=== PATIENT | female | born 1970 | race Caucasian/White ===

== ENCOUNTER 2017-11-25 18:53 | Emergency (ER) | payer BC ==
[2017-11-25 19:06] VITALS: BP 129/90
--- NOTE | 2017-11-25 19:33 | UC ---
Skin Complaint HPI - HPI Summary HPI Summary: 47 year old female with history of type 2 diabetes, COPD, CAD, HTN, and stage 3 CKD presents for painful "lump" to her right labia. States it may have been present for up to a month but over past 3-4 days has become extremely swollen and painful. States her blood glucose readings have been running from 250 to HIGH. Denies fever or chills. - History of Current Complaint Chief Complaint: UCSkin Time Seen by Provider: 11/25/17 19:14 Stated Complaint: WOUND CHECK Hx Obtained From: Patient Onset/Duration: Gradual Onset Timing: Constant Onset Severity: Mild Current Severity: Moderate Pain Intensity: 6 Location: Other - right labia Character: Swelling, Pain, Redness Aggravating Factor(s): Touch Alleviating Factor(s): Nothing Associated Signs & Symptoms: Positive: Tenderness. Negative: Nausea, Vomiting, Shivering, Fever, Chills, Drainage - Allergy/Home Medications Allergies/Adverse Reactions: Allergies Allergy/AdvReac Type Severity Reaction Status Date / Time morphine Allergy Itching Verified 11/25/17 19:08 Home Medications: Home Medications Albuterol HFA INHALER* [Ventolin HFA Inhaler*] 1 puff INH Q4H PRN 11/25/17 [ History Confirmed 11/25/17] Aspirin 81 mg CHEW TAB* [Aspirin Low Dose TAB*] 81 mg PO DAILY 11/25/17 [ History Confirmed 11/25/17] Atorvastatin* [Lipitor*] 80 mg PO DAILY 11/25/17 [History Confirmed 11/25/17] Cholecalciferol (Vitamin D3) [Vitamin D3] 2,000 unit PO DAILY 11/25/17 [History Confirmed 11/25/17] Cyclobenzaprine TAB* [Flexeril 10 MG TAB*] 10 mg PO TID PRN 11/25/17 [History Confirmed 11/25/17] Dulaglutide (NF) [Trulicity (NF)] 1.5 mg SUBCUT DAILY 11/25/17 [History Confirmed 11/25/17] Fluticasone Propionate [Flovent Diskus] 50 mcg IH DAILY 11/25/17 [History Confirmed 11/25/17] Gabapentin CAP(*) [Neurontin 300 CAP(*)] 300 mg PO TID 11/25/17 [History Confirmed 11/25/17] Insulin Glargine (Nf) [Toujeo Solostar Pen (NF)] 300 unit SUBCUT DAILY 11/25/17 [History Confirmed 11/25/17] Levothyroxine TAB* [Synthroid TAB*] 150 mcg PO DAILY 11/25/17 [History Confirmed 11/25/17] Lisinopril [Lisinopril 2.5 MG-] 7.5 mg PO DAILY 11/25/17 [History Confirmed ] Pantoprazole TAB (NF) [Protonix TAB (NF)] 40 mg PO DAILY 11/25/17 [History Confirmed 11/25/17] Polyvinyl Alcohol/Povidone/Pf [Refresh Classic Eye Drops] 1 each OP DAILY [History Confirmed 11/25/17] Sertraline HCl [Zoloft] 50 mg PO BID 11/25/17 [History Confirmed 11/25/17] Review of Systems Constitutional: Negative Skin: Other - See HPI Respiratory: Negative Cardiovascular: Negative Gastrointestinal: Negative Genitourinary: Ulceration/Lesion - right labial abscess Is Patient Immunocompromised?: No All Other Systems Reviewed And Are Negative: Yes PMH/Surg Hx/FS Hx/Imm Hx Endocrine History: Diabetes, Thyroid Disease, Dyslipidemia Cardiovascular History: Cardiac Disease, Hypertension Respiratory History: COPD GI/ History: Gastroesophageal Reflux, Renal Disease - Surgical History Surgical History: Yes Surgery Procedure, Year, and Place: skin graft, c-sec - Family History Known Family History: Positive: Other Family History: Mother - [place]. - Social History Occupation: Unemployed Lives: With Family Alcohol Use: None Substance Use Type: None Smoking Status (MU): Heavy Every Day Tobacco Smoker Physical Exam Triage Information Reviewed: Yes Appearance: Ill-Appearing - Chronically ill-appearing, older than stated age, Pain Distress - Moderately uncomfortable, Obese Vital Signs: Initial Vital Signs Temp 97.4 F 11/25/17 18:58 Pulse 115 11/25/17 18:58 Resp 24 11/25/17 18:58 BP 129/90 11/25/17 18:58 Pulse Ox 94 11/25/17 18:58 Vital Signs Reviewed: Yes Respiratory: Positive: No respiratory distress - but mildly tachypnic, Decreased breath sounds, Wheezing - Diffuse bilateral wheezing Cardiovascular: Positive: RRR, No Murmur, Tachycardia Abdomen Description: Positive: Nontender, Soft Pelvic Exam: Positive: Lesions - See below Neurological: Positive: Alert Skin: Positive: significant lesion(s) - Approximately 2-3 cm area of induration to right labia. Appears to have some central fluctuance but difficult to determine d/t body habitus. There is cellulitis present that involves the genitalia, lower abdomen, and upper right leg. Course/Dx - Course Course Of Treatment: 47-year-old female with type II diabetes, CAD, HTN, stage 3 CRF, and COPD presents with a right labial abscess and significant cellulitis involving lower abdomen, genitalia, and right upper leg. She is scoring a 5 on the MEWS scale and reports that her FSBG at home has been reading HIGH. Recommend further evaluation in the ED as she will likely need IV antibiotics. Patient agrees to ED evaluation. Will transport via private vehicle. - Diagnoses Provider Diagnoses: labial abcess with cellulitis Discharge - Sign-Out/Discharge Documenting (check all that apply): Patient Departure All imaging exams completed and their final reports reviewed: No Studies - Discharge Plan Condition: Stable Disposition: HOME-RECOMMEND TO ED Patient Education Materials: Cellulitis (ED), Abscess (ED) Referrals: Tiffany Richards MD [Primary Care Provider] - Additional Instructions: Go directly to the emergency room for evaluation. - Billing Disposition and Condition Condition: STABLE Disposition: Home-Recommend to ED
== END 2017-11-25 19:40 | disposition home health service (06) ==
LOC: UCEAST 18:53
DX: N76.4 Abscess of vulva (principal); N76.2 Acute vulvitis; E11.9 Type 2 diabetes mellitus without complications; I12.9 Hypertensive chronic kidney disease with stage 1 through stage 4 chronic kidney disease, or unspecified chronic kidney disease; N18.3 Chronic kidney disease, stage 3 (moderate); Z88.5 Allergy status to narcotic agent; J44.9 Chronic obstructive pulmonary disease, unspecified; E07.9 Disorder of thyroid, unspecified; E78.5 Hyperlipidemia, unspecified; K21.9 Gastro-esophageal reflux disease without esophagitis; I25.10 Atherosclerotic heart disease of native coronary artery without angina pectoris; F17.210 Nicotine dependence, cigarettes, uncomplicated
CPT/HCPCS: 99212; G0463

== ENCOUNTER 2017-11-25 20:11 | Emergency (ER) | payer BC ==
[2017-11-25 21:35] LABS: ABS Basophils 0.1 10^3/ul (0-0.2); ABS Eosinophils 0.4 10^3/ul (0-0.6); ABS Lymphocytes 2.4 10^3/ul (1.0-4.8); ABS Monocytes 0.5 10^3/ul (0-0.8); ABS Neutrophils 5.9 10^3/ul (1.5-7.7); ABS Nucleated RBC 0.1 10^3/ul; Eosinophil % 3.9 % (0-6); Hematocrit 44 % (35-47); Hemoglobin 15.1 g/dl (12.0-16.0); Lymphocyte % 25.6 % (25-47); Mean Corpuscular HGB Conc 34 g/dl (31-36); Mean Corpuscular Hemoglobin 30 pg (27-31); Mean Corpuscular Volume 88 fL (80-97); Mean Platelet Volume 7.3 um3 (7.4-10.4); Nucleated Red Blood Cells % 0.6; Platelet Count 243 10^3/ul (150-450); Red Blood Count 5.01 10^6/ul (4.00-5.40); Red Cell Distribution Width 16 % (10.5-15); White Blood Count 9.3 10^3/ul (3.5-10.8)
[2017-11-25 21:51] LABS: EGFR Non-African American 35.1 (>60)
[2017-11-25] MEDS ORDERED: Clindamycin 600 MG IVPREMIX(* 600 MG/50 ML SDV IV ONE (22:37)
[2017-11-25] MEDS ORDERED: NS 0.9% 1000 ML* 1,000 ML IV ONE (22:38)
[2017-11-25] MEDS ORDERED: oxyCODONE TAB* 5 MG TAB PO ONE (23:10)
[2017-11-25] MEDS ORDERED: Insulin REGULAR(*) 1 UNITS UNIT SUBCUT ONE (23:10)
[2017-11-25] MEDS ORDERED: Lidocaine 2% W/EPI 1:100,000* 20 ML MDV INJ ONE (23:16)
[2017-11-25] MEDS ORDERED: Lidocaine 2% EPI 1:200000 MPF*10-20 ML VIAL ONE (23:30)
--- NOTE | 2017-11-25 23:32 | ED ---
Skin Complaint - HPI Summary HPI Summary: 47-year-old female presents with potential abscess to right perineum. States it started as a cyst for past month and then also became enlarged in the past week. She states that the area is more tender. She also notices spreading redness to her right groin for the past day. No fevers or chills. She states her sugars have been high between 300 and high on her meter. She uses insulin. She is diabetic. She is not on blood thinners. She denies any history of MRSA. - History of Current Complaint Chief Complaint: EDRashSkinAbscess Time Seen by Provider: 11/25/17 22:34 Stated Complaint: SORE/WOUND NEAR GROIN Pain Intensity: 4 - Allergy/Home Medications Allergies/Adverse Reactions: Allergies Allergy/AdvReac Type Severity Reaction Status Date / Time morphine Allergy Itching Verified 11/25/17 19:08 PMH/Surg Hx/FS Hx/Imm Hx Endocrine/Hematology History: Reports: Hx Diabetes - insulin Denies: Hx Anticoagulant Therapy Cardiovascular History: Reports: Hx Hypercholesterolemia, Hx Hypertension - Cancer History Cancer Type, Location and Year: breast - Surgical History Surgery Procedure, Year, and Place: skin graft, c-sec Infectious Disease History: No Infectious Disease History: Denies: Traveled Outside the [place] in Last 30 Days - Family History Known Family History: Positive: Other Family History: Mother - [place]. - Social History Alcohol Use: None Hx Substance Use: No Substance Use Type: Reports: None Hx Tobacco Use: Yes Smoking Status (MU): Heavy Every Day Tobacco Smoker Review of Systems Negative: Fever Negative: Chest Pain Negative: Shortness Of Breath Positive: Rash All Other Systems Reviewed And Are Negative: Yes Physical Exam Triage Information Reviewed: Yes Vital Signs On Initial Exam: Initial Vitals Temp Pulse Resp BP Pulse Ox 97.5 F 109 15 108/76 93 11/25/17 20:15 11/25/17 20:15 11/25/17 20:15 11/25/17 20:15 11/25/17 20:15 Vital Signs Reviewed: Yes Appearance: Positive: Well-Appearing Skin: Positive: Warm, Dry Head/Face: Positive: Normal Head/Face Inspection Eyes: Positive: Normal ENT: Positive: Normal ENT inspection, Pharynx normal Respiratory/Lung Sounds: Positive: Clear to Auscultation, Breath Sounds Present Cardiovascular: Positive: Normal, RRR Abdomen Description: Positive: Nontender, Soft Bowel Sounds: Positive: Present Pelvic Exam: Positive: Other - area of loculation to right labia with erythema Musculoskeletal: Positive: Normal Neurological: Positive: Normal Psychiatric: Positive: Normal Procedures - Incision and Drainage perineum Site: right perineum Anesthesia: Local Instrument(s): Scalpel Packing: Gauze Diagnostics - Vital Signs Vital Signs Temp Pulse Resp BP Pulse Ox 11/25/17 20:15 97.5 F 109 15 108/76 93 - Laboratory Lab Results: Lab Results 11/25/17 11/25/17 11/25/17 Range/Units 21:22 21:22 21:22 WBC 9.3 (3.5-10.8) 10^3/ul RBC 5.01 (4.00-5.40) 10^6/ul Hgb 15.1 (12.0-16.0) g/dl Hct 44 (35-47) % MCV 88 (80-97) fL MCH 30 (27-31) pg MCHC 34 (31-36) g/dl RDW 16 H (10.5-15) % Plt Count 243 (150-450) 10^3/ul MPV 7.3 L (7.4-10.4) um3 Neut % (Auto) 63.6 (38-83) % Lymph % (Auto) 25.6 (25-47) % [place] % (Auto) 5.6 (0-7) % Eos % (Auto) 3.9 (0-6) % Baso % (Auto) 1.3 (0-2) % Absolute Neuts (auto) 5.9 (1.5-7.7) 10^3/ul Absolute Lymphs (auto) 2.4 (1.0-4.8) 10^3/ul Absolute Monos (auto) 0.5 (0-0.8) 10^3/ul Absolute Eos (auto) 0.4 (0-0.6) 10^3/ul Absolute Basos (auto) 0.1 (0-0.2) 10^3/ul Absolute Nucleated RBC 0.1 10^3/ul Nucleated RBC % 0.6 Sodium 131 L (135-145) mmol/L Potassium 4.1 (3.5-5.0) mmol/L Chloride 101 (101-111) mmol/L Carbon Dioxide 21 L (22-32) mmol/L Anion Gap 9 (2-11) mmol/L BUN 29 H (6-24) mg/dL Creatinine 1.58 H (0.51-0.95) mg/dL Est GFR ( Amer) 42.4 (>60) Est GFR (Non-Af Amer) 35.1 (>60) BUN/Creatinine Ratio 18.4 (8-20) Glucose 367 H (70-100) mg/dL Lactic Acid 1.4 (0.5-2.0) mmol/L Calcium 9.1 (8.6-10.3) mg/dL Total Bilirubin 0.30 (0.2-1.0) mg/dL AST 30 (13-39) U/L ALT 33 (7-52) U/L Alkaline Phosphatase 109 H (34-104) U/L Total Protein 7.1 (6.4-8.9) g/dL Albumin 3.5 (3.2-5.2) g/dL Globulin 3.6 (2-4) g/dL Albumin/Globulin Ratio 1.0 (1-3) Lipase 38 (11.0-82.0) U/L Beta HCG, Quant 2.90 mIU/mL Result Diagrams: 11/25/17 21:22 11/25/17 21:22 Lab Statement: Any lab studies that have been ordered have been reviewed, and results considered in the medical decision making process. Course/Dx - Course Course Of Treatment: 47-year-old female presents with potential abscess to right perineum. States it started as a cyst for past month and then also became enlarged in the past week. She states that the area is more tender. She also notices spreading redness to her right groin for the past day. No fevers or chills. She states her sugars have been high between 300 and high on her meter. She uses insulin. She is diabetic. She is not on blood thinners. She denies any history of MRSA. on exam has 3cm by 4cm area of loculation on right perineum with surround erythema. labs wbc normal. lactic normal. i&D area and got copious amount of pus. placed some packing in wound. gave dose of clindamycin. will have continue clindamycin. warned of signs to return to ED. told to return in 2 days for wound check. patient understand and agrees with plan. - Differential Diagnoses - Skin Complaint Differential Diagnoses: Abscess, Cellulitis, Contact Dermatitis - Diagnoses Provider Diagnoses: Abscess of right groin, Cellulitis Discharge - Sign-Out/Discharge Documenting (check all that apply): Patient Departure - Discharge Plan Condition: Good Disposition: HOME Prescriptions: Clindamycin Cap(NF) [Clindamycin Cap 300 mg Cap(NF)] 300 mg PO TID #29 cap Patient Education Materials: Abscess (ED) Referrals: Tiffany Richards MD [Primary Care Provider] - Additional Instructions: Take antibiotic three a day for 10 days, first dose given in ED Apply warm compresses to area Take ibuprofen or Tylenol for pain every 6 hours Follow up with ED or urgent care in 2 days for a wound check Return to ED if develop fever, area of redness spreads, or any new or worsening symptoms - Billing Disposition and Condition Condition: GOOD Disposition: Home
[2017-11-26 00:09] VITALS: BP 114/86
== END 2017-11-26 00:14 | disposition home or self-care (01) ==
LOC: ED 20:11
DX: L02.214 Cutaneous abscess of groin (principal); L03.90 Cellulitis, unspecified; R21 Rash and other nonspecific skin eruption; F17.210 Nicotine dependence, cigarettes, uncomplicated
CPT/HCPCS: 36415; 80053; 83605; 83690; 84702; 85025; 87040; 87070; 87205; 87640; 87641; 96374; 99283; A9270-GY

== ENCOUNTER 2017-11-29 11:32 | Inpatient (IN) | payer BC ==
[2017-11-29] MEDS ORDERED: NS 0.9% 1000 ML* 1,000 ML IV ONE ×2 (14:02→14:44)
[2017-11-29 14:23] LABS: ABS Basophils 0.1 10^3/ul (0-0.2); ABS Eosinophils 0.3 10^3/ul (0-0.6); ABS Lymphocytes 1.7 10^3/ul (1.0-4.8); ABS Neutrophils 10.7 10^3/ul (1.5-7.7); ABS Nucleated RBC 0 10^3/ul; Eosinophil % 2.5 % (0-6); Hematocrit 41 % (35-47); Lymphocyte % 12.3 % (25-47); Mean Corpuscular HGB Conc 34 g/dl (31-36); Mean Corpuscular Hemoglobin 30 pg (27-31); Mean Corpuscular Volume 88 fL (80-97); Mean Platelet Volume 7.3 um3 (7.4-10.4); Nucleated Red Blood Cells % 0.1; Platelet Count 264 10^3/ul (150-450); Red Blood Count 4.68 10^6/ul (4.00-5.40); Red Cell Distribution Width 16 % (10.5-15); White Blood Count 13.9 10^3/ul (3.5-10.8)
[2017-11-29] MEDS ORDERED: Vancomycin(*) 1,250 MG in NS 0.9% 250 ML* 250 ML IVPB ONE (14:40)
[2017-11-29] MEDS ORDERED: Piperacillin/Tazobac ADVAN(*) 3.375 GM in NS 0.9% 100 ML* 100 ML IVPB ONE (14:40)
[2017-11-29] MEDS ORDERED: NS 0.9% 250 ML* 250 ML ONE (14:55)
[2017-11-29 14:58] LABS: EGFR Non-African American 37.5 (>60)
--- NOTE | 2017-11-29 15:06 | RAD ---
INDICATION: RIGHT side labial abscess/cellulitis. The patient reports that the region was previously incised and packed and the incision has healed over the packing. COMPARISON: No relevant prior exams available on the [facility] [place] PACS for comparison. TECHNIQUE: Multidetector CT images were obtained from the lung bases to the ischial tuberosities. No oral contrast administered. Assessment of the visceral limited without IV contrast. Multiplanar reformation. REPORT: VISUALIZED INFERIOR THORAX: Unremarkable. LIVER / GALLBLADDER / PANCREAS / SPLEEN: 25 cm cephalocaudal liver is similar in density to the spleen and without evidence for focal lesions within limits of noncontrast CT. No CT abnormality of the partially distended gallbladder. Moderate pancreatic atrophy. 15 cm cephalocaudal spleen. ALIMENTARY TRACT: No CT abnormality of the upper GI or small bowel evident. The appendix is not visualized. Redundant colon with moderately severe diverticulosis without findings of acute diverticulitis. The cecum extends to the midline anterior pelvis and is inseparable from the superior margin of the urinary bladder. MESENTERIC: Unremarkable. ADRENAL / GENITOURINARY: Normal adrenal glands. Markedly atrophic RIGHT kidney. Nonobstructing 2 mm stone at the upper pole of the LEFT kidney. Negative for LEFT hydronephrosis. Unremarkable LEFT ureter. Partially distended urinary bladder contains intraluminal gas. No gross evidence for mural thickening of the urinary bladder. Unremarkable anteverted uterus and adnexal regions. RETROPERITONEAL: Upper normal 1 cm short axis RIGHT external iliac lymph node. Additional smaller retroperitoneal lymph nodes. Normal size limits RIGHT inguinal lymph nodes are larger than the LEFT. VASCULAR: Negative for aortoiliac aneurysm. Physiologic partial distention of the IVC. BONES: Negative for suspicious osseous lesions. Advanced facet joint osteoarthritis at the lumbar sacral spine. SOFT TISSUE: There is inflammatory change at the RIGHT labia majora with associated mass effect. Irregularly poorly marginated gas and phlegmonous or fluid collection at the RIGHT labia majora without conspicuous incisional or fistulous tract to the skin or viscera measures up to 7.4 cm AP by 2.7 cm transverse by 4.2 cm cephalocaudal. IMPRESSION: #. Hepatosplenomegaly. #. Gas at the urinary bladder which may reflect recent instrumentation or potentially a colovesicular fistula close approximation of the cecum to the cephalad margin of the urinary bladder. Correlate for recent partial instrumentation to favor iatrogenic gas. #. There is inflammatory change at the RIGHT labia majora with associated mass effect. Irregularly poorly marginated gas and phlegmonous or fluid collection at the RIGHT labia majora without conspicuous incisional or fistulous tract to the skin or viscera measures up to 7.4 cm AP by 2.7 cm transverse by 4.2 cm cephalocaudal. Corresponding with the provided clinical history the appearance is suspicious for retained wound packing material.
[2017-11-29] MEDS ORDERED: HYDROmorphone INJ* 2 MG/ML CARPUJECT SYRINGE IV SLOW PU ONE (15:50)
[2017-11-29] MEDS ORDERED: Ondansetron INJ* 2 MG/ML VIAL IV ONE (15:50)
--- NOTE | 2017-11-29 15:51 | ED ---
GI/ HPI - HPI Summary HPI Summary: Patient is a 47-year-old female who presents emergency department for reevaluation of vaginal abscess. Patient was seen in the ER 5 days ago and had a labial abscess incised and drained. She was placed. She was placed on clindamycin. Patient states that she was supposed to return for packing removal in 2 days but did not. Patient presents today because she is concerned that skin has healed over packing. She notes possible fever with chills. Denies nausea, vomiting, abdominal pain. Past medical history of uncontrolled diabetes, morbidly obese, GERD, depression, high cholesterol. Symptoms are moderate in severity. Touching affected area makes symptoms worse. Nothing makes symptoms better. - History of Current Complaint Chief Complaint: EDRashSkinAbscess Time Seen by Provider: 11/29/17 13:28 Stated Complaint: NEEDS PACKING FROM PROCEDURE REMOVED Hx Obtained From: Patient Pain Intensity: 7 - Allergy/Home Medications Allergies/Adverse Reactions: Allergies Allergy/AdvReac Type Severity Reaction Status Date / Time morphine Allergy Itching Verified 11/29/17 11:37 Home Medications: Home Medications Fluticasone NASAL SPRAY 50MCG* [Flonase NASAL SPRAY 50MCG*] 2 spray BOTH NARES DAILY 11/29/17 [History Confirmed 11/29/17] Insulin Glargine (Nf) [Toujeo Solostar Pen (NF)] 80 unit SUBCUT QPM 11/29/17 [ History Confirmed 11/29/17] Insulin Glargine (Nf) [Toujeo Solostar Pen (NF)] 100 unit SUBCUT QAM 11/29/17 [ History Confirmed 11/29/17] Sertraline* [Zoloft*] 50 mg PO BID 11/29/17 [History Confirmed 11/29/17] PMH/Surg Hx/FS Hx/Imm Hx Previously Healthy: Yes Endocrine/Hematology History: Reports: Hx Diabetes - insulin Denies: Hx Anticoagulant Therapy Cardiovascular History: Reports: Hx Hypercholesterolemia, Hx Hypertension - Cancer History Cancer Type, Location and Year: breast - Surgical History Surgery Procedure, Year, and Place: skin graft, c-sec Infectious Disease History: No Infectious Disease History: Denies: Traveled Outside the [place] in Last 30 Days - Family History Known Family History: Positive: Other Family History: Mother - [place]. - Social History Occupation: Unemployed Lives: With Family Alcohol Use: None Hx Substance Use: No Substance Use Type: Reports: None Hx Tobacco Use: Yes Smoking Status (MU): Heavy Every Day Tobacco Smoker Review of Systems Positive: Chills Cardiovascular: Negative Respiratory: Negative Gastrointestinal: Negative Negative: Abdominal Pain, Vomiting, Nausea Positive: other - right labial infection Neurological: Negative All Other Systems Reviewed And Are Negative: Yes Physical Exam Triage Information Reviewed: Yes Vital Signs On Initial Exam: Initial Vitals Temp Pulse Resp BP Pulse Ox 96.8 F 115 16 137/91 97 11/29/17 11:37 11/29/17 11:37 11/29/17 11:37 11/29/17 11:37 11/29/17 11:37 Vital Signs Reviewed: Yes Appearance: Positive: Well-Appearing - Patient lying in bed in no acute distress. Morbidly obese. present. Skin: Positive: Warm, Dry, Other - Genital exam performed with patient's nurse in room, José Miguel. Right labia majora is diffusely erythematous and edematous extending to the mons pubis region and is very tender. I do not appreciate any open wounds or any drainage. Exam is limited secondary to pt.'s pain and obesity. Head/Face: Positive: Normal Head/Face Inspection Eyes: Positive: Normal, EOMI Neck: Positive: Supple Abdomen Description: Positive: Other: - Morbidly obese, soft nontender. Neurological: Positive: Normal, CN Intact II-III Psychiatric: Positive: Affect/Mood Appropriate Diagnostics - Vital Signs Vital Signs Temp Pulse Resp BP Pulse Ox 11/29/17 11:37 96.8 F 115 16 137/91 97 - Laboratory Lab Results: Lab Results 11/29/17 11/29/17 11/29/17 Range/Units 14:07 14:07 14:07 WBC 13.9 H (3.5-10.8) 10^3/ul RBC 4.68 (4.00-5.40) 10^6/ul Hgb 14.0 (12.0-16.0) g/dl Hct 41 (35-47) % MCV 88 (80-97) fL MCH 30 (27-31) pg MCHC 34 (31-36) g/dl RDW 16 H (10.5-15) % Plt Count 264 (150-450) 10^3/ul MPV 7.3 L (7.4-10.4) um3 Neut % (Auto) 76.9 (38-83) % Lymph % (Auto) 12.3 L (25-47) % [place] % (Auto) 7.4 H (0-7) % Eos % (Auto) 2.5 (0-6) % Baso % (Auto) 0.9 (0-2) % Absolute Neuts (auto) 10.7 H (1.5-7.7) 10^3/ul Absolute Lymphs (auto) 1.7 (1.0-4.8) 10^3/ul Absolute Monos (auto) 1.0 H (0-0.8) 10^3/ul Absolute Eos (auto) 0.3 (0-0.6) 10^3/ul Absolute Basos (auto) 0.1 (0-0.2) 10^3/ul Absolute Nucleated RBC 0 10^3/ul Nucleated RBC % 0.1 Sodium 131 L (135-145) mmol/L Potassium 4.4 (3.5-5.0) mmol/L Chloride 99 L (101-111) mmol/L Carbon Dioxide 21 L (22-32) mmol/L Anion Gap 11 (2-11) mmol/L BUN 23 (6-24) mg/dL Creatinine 1.49 H (0.51-0.95) mg/dL Est GFR ( Amer) 45.4 (>60) Est GFR (Non-Af Amer) 37.5 (>60) BUN/Creatinine Ratio 15.4 (8-20) Glucose 385 H (70-100) mg/dL Lactic Acid 1.5 (0.5-2.0) mmol/L Calcium 9.4 (8.6-10.3) mg/dL Total Bilirubin 0.30 (0.2-1.0) mg/dL AST 12 L (13-39) U/L ALT 19 (7-52) U/L Alkaline Phosphatase 119 H (34-104) U/L C-Reactive Protein 256.61 H (<8.01) mg/L Total Protein 7.4 (6.4-8.9) g/dL Albumin 3.3 (3.2-5.2) g/dL Globulin 4.1 H (2-4) g/dL Albumin/Globulin Ratio 0.8 L (1-3) Result Diagrams: 11/29/17 14:07 11/29/17 14:07 Lab Statement: Any lab studies that have been ordered have been reviewed, and results considered in the medical decision making process. GIGU Course/Dx - Course Course Of Treatment: Pt. presenting to the emergency department for ongoing genital infection. She is afebrile. HR elevate at 115bpm. Concerned for worsening labial cellulitis/abscess after being on 3-4 days of on clindamycin. Will obtain labs, cultures and CT scan to evaluate for deep space infection. CBC shows a leukocytosis of 13.9. Glucose 385, CRP 256. Pt. given dose a vanc and zoysn. CT abd./pelvis per radiology: IMPRESSION: #. Hepatosplenomegaly. #. Gas at the urinary bladder which may reflect recent instrumentation or potentially a. colovesicular fistula close approximation of the cecum to the cephalad margin of the. urinary bladder. Correlate for recent partial instrumentation to favor iatrogenic gas. #. There is inflammatory change at the RIGHT labia majora with associated mass effect. Irregularly poorly marginated gas and phlegmonous or fluid collection at the RIGHT labia. majora without conspicuous incisional or fistulous tract to the skin or viscera measures. up to 7.4 cm AP by 2.7 cm transverse by 4.2 cm cephalocaudal. Corresponding with the. provided clinical history the appearance is suspicious for retained wound packing. material. I initially spoke with berny saavedra, Dr. Morales, who recommends [facility] [employer] consults. I spoke with Dr. Blum, [facility], and she will consult on pt. for possible OR. I spoke with Dr. Sanders, hospitalist, and pt. has been accepted to his service. - Diagnoses Differential Diagnoses - Female: Bartholin Cyst, Other - cellulitis, abscess Provider Diagnoses: Uncontrolled diabetes mellitus, Cellulitis of labia majora Discharge - Sign-Out/Discharge Documenting (check all that apply): Patient Departure - Discharge Plan Condition: Stable Disposition: ADMITTED TO [facility] Referrals: Tiffany Richards MD [Primary Care Provider] - - Billing Disposition and Condition Condition: STABLE Disposition: Admitted to [facility]
[2017-11-29] MEDS ORDERED: Cyclobenzaprine TAB* 10 MG PO PRN (16:47)
[2017-11-29] MEDS ORDERED: Albuterol HFA INHALER* 8 gm MDI INH PRN (16:47)
[2017-11-29] MEDS ORDERED: Vancomycin per Pharmacy* NOTE FOLLOW UP PRN (17:48)
[2017-11-29] MEDS ORDERED: Metoclopramide IV* 5 MG/ML 2 ML VIAL IV SLOW PU ONE (17:51)
[2017-11-29] MEDS ORDERED: Famotidine IV* 10 MG/ML 2 ML (20 mg) IV SLOW PU ONE (17:51)
[2017-11-29] MEDS ORDERED: Insulin LISPRO* 1 UNITS UNIT SUBCUT ONE ×3 (17:51→20:40)
[2017-11-29] MEDS ORDERED: Vancomycin(*) 0 MG in NS 0.9% 250 ML* 250 ML IVPB SCH (18:00)
[2017-11-29] MEDS ORDERED: Insulin GLARGINE(*) 1 UNITS UNIT SUBCUT SCH (18:00)
[2017-11-29] MEDS ORDERED: KETAMINE HCL* 50 MG/ML 10 ML VIAL ONE (18:41)
[2017-11-29] MEDS ORDERED: Midazolam* 1 MG/ML 5 ML VIAL (5 MG) ONE (18:41)
[2017-11-29] MEDS ORDERED: fentaNYL* 50 MCG/ML 2 ML VIAL (100 MCG VIAL) ONE ×2 (18:41→19:37)
[2017-11-29] MEDS ORDERED: oxyCODONE/Acetamin 5/325 MG* TAB PO PRN (18:59)
[2017-11-29] MEDS ORDERED: HYDROcodone/ACETAMIN 5-325 MG* 1 TAB PO PRN (18:59)
[2017-11-29] MEDS ORDERED: Naloxone* 0.4 MG/ML 1 ML VIAL IV PRN (18:59)
[2017-11-29] MEDS ORDERED: fentaNYL* 50 MCG/ML 2 ML VIAL (100 MCG VIAL) IV PRN (18:59)
[2017-11-29] MEDS ORDERED: PROCHLORPERAZINE INJ 5 MG/ML 2 ML VIAL IV PRN (18:59)
[2017-11-29] MEDS ORDERED: Lidocaine 1% INJ* 10 MG/ML 30 ML SDV ONE (19:11)
[2017-11-29] MEDS ORDERED: Metoprolol Tartrate IV* 1 MG/ML 5 ML VIAL ONE (19:45)
[2017-11-29] MEDS ORDERED: Lidocaine 1% MPF wEPI 200,000* 30 ML SDV ONE (19:51)
[2017-11-29] MEDS ORDERED: Bupivacaine 0.25% SDV PF* 10 ML VIAL INJ ONE (19:51)
[2017-11-29] MEDS ORDERED: Bupivacaine 0.25% W/EPI* 10 ML SDV ONE (19:52)
[2017-11-29] MEDS ORDERED: Cefepime 2 GM in Dextrose(*) 2 GM/50 ML BAG IV SCH (20:00)
[2017-11-29] MEDS ORDERED: Dextrose 50% Syringe 50 ML* 25 GM/50 ML SYRINGE IV PUSH PRN (20:39)
[2017-11-29] MEDS ORDERED: Gabapentin CAP(*) 300 MG PO SCH (21:00)
[2017-11-29] MEDS ORDERED: Levalbuterol 0.63MG/3ML NEB* UNIT OF USE INH ONE ×2 (21:01)
[2017-11-29] MEDS: Heparin VIAL(*) 5000 UNITS/ML VIAL (FIVE THOUSAND) SUBCUT SCH (21:59)
[2017-11-29] MEDS: NS 0.9% 1000 ML* 1,000 ML IV SCH (22:01)
[2017-11-29] MEDS ORDERED: Ondansetron INJ* 2 MG/ML VIAL IV PRN (22:30)
[2017-11-29] MEDS ORDERED: HYDROmorphone INJ1* 1 MG/ML SYRINGE IV SLOW PU PRN (22:31)
[2017-11-29] MEDS ORDERED: CEFEPIME ADVAN IVPB SCH (23:00)
[2017-11-29] MEDS ORDERED: NS 0.9% IVPB SCH (23:00)
--- NOTE | 2017-11-29 23:16 | HP ---
HISTORY AND PHYSICAL: DATE OF ADMISSION: 11/29/17 HISTORY OF PRESENT ILLNESS: The patient is a 47-year-old, 4, para 4, last menstrual period greater than 10 years ago. The patient cannot say exactly when. She has a tubal ligation for control. The patient has medical history significant for diabetes, hypertension, hypothyroidism, neuropathy and left breast cancer. The patient presented to the emergency room on 11/25/17 complaining of a cyst of the right labia for one month that had increased in size over one week. She did not have fevers or chills. It was not draining at the time. The patient states that her blood glucose is ranging in the 300s at home. In the emergency room, an abscess was diagnosed, incised and drained. Packing was placed. The patient was started on by mouth clindamycin and was instructed to return for a wound check to the emergency room in 2 days. The patient was reviewing her discharge instructions today, 4 days later when she realized this and presented to the emergency room today. She complains of increased in size of the right labia and pain. No fever, shakes, or chills and no drainage. She does not think the packing had come out on its own. PAST MEDICAL HISTORY: Significant for diabetes diagnosed at age 10, hypertension, left breast cancer for which she had a left mastectomy and is taking letrozole according to the patient. Lymph nodes were positive, however, it is decided that she should not have a chemotherapy or radiation due to her other medical problems. She has poorly controlled diabetes, HTN, hypothyroidism , hypercholesterolemia, gout and neuropathy of her feet and legs. PAST SURGICAL HISTORY: Includes x1, tubal ligation, left mastectomy, skin graft of the right hand. ALLERGIES: She says with MORPHINE, she has itching and sweating, but no rash, no shortness of breath. SOCIAL HISTORY: She smokes a half a pack to one pack of cigarettes a day, does not drink alcohol, does not use illicit drugs. OBSTETRIC HISTORY: Four pregnancies, 3 vaginal deliveries, 1 section. PHYSICAL EXAMINATION GENERAL: She is lying in bed, appears comfortable. VITAL SIGNS: Her temp is 97, her pulse is 112, her oxygen saturation is 94, her blood pressure after Dilaudid is 97/65. ABDOMEN: Her abdomen is soft and nontender. She has a Pannus. GENITALIA: The right labia is markedly enlarged to approximately 6 cm in width , the labia is fluctuant, tender, erythematous, the erythema extends to her right inner thigh. The packing is no longer present. There is no drainage from the incision side of the packing. There is no drainage at all from this abscess. The left labia appears normal. There is no vaginal bleeding. The pelvic exam is limited by her habitus. LABS: Her white blood cell count is 14. The white blood cell count was 9.3 on 11/25/17. Her hemoglobin is 14. Her hematocrit is 41. Her platelets are 264. Her glucose on admission is 385. CAT scan done today. Per report: Hepatosplenomegaly. It says in the impression , "gas in the urinary bladder, which may reflect recent instrumentation or potentially a colovesicular fistula, close approximation of the cecum to the cephalad margin of the urinary bladder". The patient does not have incontinence of stool or gas, pneumoturia. Further on the impression of the CAT scan, there is inflammatory change at the right labia majora with associated mass effect, it measures 7.4 x 2.7 x 4.2 cm and she also has in the report a markedly atrophic right kidney with a non-obstructing 2 mm stone in the left kidney. No left hydronephrosis, unremarkable anteverted uterus and adnexal regions. IMPRESSION: Patient has a large right labial abscess with uncontrolled diabetes. She is being admitted to the hospitalist service for diabetes control and to treat her other medical problems. She will be on broad-spectrum IV antibiotics for the cellulitis and plan is to take her to the operating room to open and drain the right labial abscess. I discussed this with the patient and her boyfriend. All questions were answered and they agree with the plan. [id number]/[facility] #: [id number] [facility] CENTERGautam
[2017-11-29] MEDS: Sertraline* 50 MG TAB PO SCH (23:20)
[2017-11-29] MEDS: Acetaminophen TAB* 325 MG PO PRN (23:21)
--- NOTE | 2017-11-29 23:24 | HP ---
CC: Dr. Tiffany Richards; Dr. Joann Blum * HISTORY AND PHYSICAL: DATE OF ADMISSION: 11/29/17 PRIMARY CARE PROVIDER: Dr. Tiffany Richards. ATTENDING PROVIDER: Dr. Steven Sanders * (DICTATED BY MARGIE ROBLES NP) CHIEF COMPLAINT: Need packing removed and right and pain. HISTORY OF PRESENT ILLNESS: Ms. Ray is a 47-year-old female with past medical history significant for diabetes mellitus; hyperlipidemia; hypertension; breast cancer, on oral chemo; obstructive sleep apnea, with CPAP at home; hypothyroidism; gout, who presented to urgent care initially on 11/25/17 with complaints of right labial swelling. At that time, the patient was seen and was referred to the emergency room for further evaluation due to the degree of her cellulitis. The patient was evaluated in the emergency room where she underwent an I and D of her right labia with packing placed. The patient was started on clindamycin, was given instructions to return in 1 to 2 days to have her packing changed. At that time, the patient had blood cultures that have negative growth today on day 3. Additionally, she had a wound culture obtained showing normal jhonatan and Peptoniphilus asaccharolyticus. The patient states that she had been taking her clindamycin and sitting on a heating pack per the instructions of emergency room. She reports feeling intermittent fevers and chills. She denies any chest pain. She has shortness of breath at baseline. She feels that breathing is at baseline. She denies nausea, vomiting, diarrhea. She reports lower bilateral abdominal discomfort. She states using oxygen 2 L via nasal cannula at night. She reports she is supposed to be using CPAP for her sleep apnea, but has not been using her CPAP due to feeling that there is a rip in her mask. She denies any drainage from the site. She states that she was re-reading her paperwork from the emergency room today when she discovered that she was supposed to come back to have her packing removed, so she presented to the emergency room to have the packing removed today. While in the emergency room, the patient was noted to be hypotensive with systolic blood pressures into the 90s, although she maintained MAP in the range of 70s to 80s. She was afebrile. She was also noted to be slightly tachycardic. She had labs significant for leukocytosis with a WBC count of 13.9 , this is an increase from her previous labs of 9.3 four days ago. Additionally , the patient appears to have an elevated creatinine, but by the labs in the chart, this is likely her baseline. She has a significantly elevated CRP at 256 , a glucose of 385. The patient's right labia majora was found to be diffusely erythematous and edematous extending into the mons pubis region and very tender. There appeared to be no open wounds, so another wound culture was not obtained. The patient had a CT scan, showed gas at the urinary bladder, which may reflect recent instrumentation or potentially a colovesicular fistula close approximation of the cecum to the cephalad margin of the urinary bladder. The patient denies any recent instrumentation of her bladder such as urinary catheter. There was also inflammatory change at the right labia majora with associated mass effect. The hospitalists were asked to evaluate the patient for admission. PAST MEDICAL HISTORY: 1. Diabetes mellitus. 2. Hyperlipidemia. 3. Hypertension. 4. Left breast cancer, status post mastectomy and oral chemo. 5. Obstructive sleep apnea, is not currently using CPAP. 6. Hypothyroidism. 7. Gout. PAST SURGICAL HISTORY: 1. Status post section. 2. Status post skin graft. 3. Status post tubal ligation. 4. Status post left mastectomy. MEDICATIONS: Home medications include: 1. Glargine insulin 100 units subcutaneous every morning, 80 units subcutaneous every evening. 2. Trulicity 1.5 mg subcutaneous every 7 days. 3. Flonase 500 mcg 2 sprays to both naris daily. 4. Lisinopril 7.5 mg oral daily. 5. Levothyroxine 150 mcg oral daily. 6. Gabapentin 300 mg oral 3 times daily. 7. Refresh eyedrops 1 to both eyes daily. 8. Protonix 40 mg oral daily. 9. Zoloft 50 mg oral twice daily, the patient was prescribed 100 mg once daily , but it was lessened to twice daily dosing. 10. Flexeril 10 mg oral 3 times daily as needed for muscle spasms. 11. Clindamycin 300 mg oral 3 times daily. 12. Vitamin D3 of 2000 units oral daily. 13. Atorvastatin 80 mg oral daily. 14. Aspirin 81 mg oral daily. 15. Albuterol HFA inhaler 1 puff inhalation every 4 hours as needed for shortness of breath or wheeze. 16. Letrozole 2.5 mg oral daily. ALLERGIES: MORPHINE causes itching. FAMILY HISTORY: The patient's father passed at age 48 from a myocardial infarction. The patient's sister, brother, and son all have diabetes mellitus type 2. The patient's mother had a history of cancer in her lymph nodes. She is really unsure of the details. SOCIAL HISTORY: The patient reports smoking 1/2 to 1 pack a day for the last 15 years. She denies alcohol or recreational drug use. Her significant other, Joe Akhtar, will be her surrogate decision maker in the event she is unable to make decisions for herself. REVIEW OF SYSTEMS: I performed a 11-point review of systems. All the pertinent positives and negatives are mentioned in the history of present illness. The remaining review of systems is negative. PHYSICAL EXAMINATION GENERAL APPEARANCE: The patient is alert, pleasant, appears to be in no acute distress. VITAL SIGNS: Temperature 96.8, heart rate 115, respiratory rate 16, O2 sat 97% on 2 L via nasal cannula, blood pressure 137/91. HEENT: Normocephalic, atraumatic. Pupils are equal and reactive to light. Extraocular movements are intact. RESPIRATORY: There is no accessory muscle use. The lungs are clear to auscultation bilaterally. CARDIOVASCULAR: Regular rate and rhythm. S1, S2 present. Tachycardic. There are no murmurs, rubs, or gallops heard. ABDOMEN: Soft, nontender, and nondistended. There are bowel sounds present x4. Her abdomen is large. EXTREMITIES: There is no lower extremity edema. DP and PT pulses are 1+ and symmetric. MUSCULOSKELETAL: There is no clubbing or cyanosis noted. The patient exhibits good strength in all extremities. NEUROLOGICAL: The patient is alert and oriented x4. Cranial nerves II through XII are grossly intact. PSYCHOLOGICAL: The patient is calm and cooperative. SKIN: The patient has erythema to her right labia and extending up into her mons pubis. She also has induration to this area. There is no open area. DIAGNOSTIC STUDIES/LAB DATA: Sodium 131, potassium 4.5, chloride 99, CO2 of 21 , BUN 23, creatinine 1.49, glucose 385. White blood cell count 13.9, hemoglobin 14.0, hematocrit 41, and platelet count 264. CRP 256.61. Lactic acid 1.5. Abdomen and pelvis CT from today. Radiologist's impression: Hepatosplenomegaly. Gas at the urinary bladder, which may reflect recent instrumentation or potentially a colovesicular fistula with close approximation of the cecum to the cephalad margin of the urinary bladder. Correlate for recent partial instrumentation to favor iatrogenic gas. There is inflammatory change at the right labia majora with associated mass effect. Irregularly poor marginated gas and phlegmonous or fluid collection at the right labia majora without conspicuous instrumentation or fistulous tract to the skin, viscera measures up to 7.4 cm AP x 2.7 cm transverse x 4.2 cm cephalocaudal. Corresponding with the provided clinical history, the appearance is suspicious for retained-wound packing material. Additionally, in the body of the report, the patient was noted to have a markedly atrophic right kidney with a nonobstructing 2 mm stone at the upper pole of the left kidney, negative for left hydronephrosis. IMPRESSION: Ms. Ray is a 47-year-old female with past medical history significant for diabetes mellitus; hypertension; hyperlipidemia; left breast cancer, status post mastectomy and oral chemo; obstructive sleep apnea; hypothyroidism; gout, who presented to the emergency room with complaints of possible retained packing to her right labia. She will be admitted as an inpatient for cellulitis. ASSESSMENT/PLAN: 1. Right labial cellulitis with abscess. The patient will be placed on vancomycin and cefepime. She will receive cefepime daily dosing due to her renal status. She had blood cultures drawn in the emergency room. She is afebrile, but does have leukocytosis. We will recheck her CBC tomorrow. Additionally, the patient had a wound culture completed 3 days ago showing Peptoniphilus and normal jhonatan, negative for MRSA and Staph aureus. She has been seen in consultation by [facility], who will take her to the operating room for an I and D later tonight. She had repeat blood cultures drawn today while in the emergency room. 2. Hypotension. I suspect this may be secondary to the pain medication she received in the emergency room. I am going to give her gentle IV hydration. Continue to follow her blood pressures. 3. Diabetes mellitus. A hemoglobin A1c was added on to her ER labs, 11.3. She will be continued on glucose checks q.6 hours while she is n.p.o. and will be transitioned to a.c. and h.s. glucose checks when she is taking p.o. She will be on a lispro sliding scale. In addition, she will be continued on her home Lantus. The patient will benefit from [facility] consultation either while inpatient or when she is discharged. 4. Hypertension. Again, the patient is currently hypotensive. For now, I am going to hold her lisinopril and follow her blood pressures and resume when able. 5. Hyperlipidemia. She will be continued on her home atorvastatin. 6. Breast cancer. The patient will be continued on her home letrozole. She should continue to follow with her oncologist and her PCP. 7. Obstructive sleep apnea. She states that her mask at home has a leak in it , so we will have the hospital provide her with a CPAP. 8. Hypothyroidism. She will be continued on her home levothyroxine. 9. Diabetic neuropathy. We will continue the patient on her home gabapentin, but hold for sedation. 10. Depression. She will be continued on her home Zoloft. 11. Fluids, electrolytes, and nutrition: She will be n.p.o. until she goes to the OR [facility]. 12. Code status: Full code. 13. DVT prophylaxis: She is at moderate risk. She will have subcu heparin starting postoperatively. 14. Disposition: Inpatient. TIME SPENT: Time for this admission was approximately 60 minutes, greater than half of that was spent with the patient discussing medications, past medical history, events leading up to her arrival today, and performing a physical examination. The case has been reviewed with the attending, Dr. Sanders, who agrees with the plan of care. MARGIE CHENG, INESSA [id number]/[facility] #: [id number] NUHA
[2017-11-30] MEDS: NS 0.9% 1000 ML* 1,000 ML IV ONE ×2 (01:03→01:05)
[2017-11-30] MEDS: Heparin VIAL(*) 5000 UNITS/ML VIAL (FIVE THOUSAND) SUBCUT SCH ×3 (06:06→22:03)
[2017-11-30] MEDS: Levothyroxine TAB* 150 MCG TAB PO SCH (06:06)
[2017-11-30 07:01] LABS: ABS Basophils 0 10^3/ul (0-0.2); ABS Eosinophils 0.2 10^3/ul (0-0.6); ABS Monocytes 0.7 10^3/ul (0-0.8); ABS Neutrophils 10.6 10^3/ul (1.5-7.7); ABS Nucleated RBC 0 10^3/ul; Eosinophil % 1.7 % (0-6); Hematocrit 38 % (35-47); Hemoglobin 12.3 g/dl (12.0-16.0); Lymphocyte % 7.9 % (25-47); Mean Corpuscular HGB Conc 33 g/dl (31-36); Mean Corpuscular Hemoglobin 30 pg (27-31); Mean Corpuscular Volume 91 fL (80-97); Mean Platelet Volume 7.2 um3 (7.4-10.4); Nucleated Red Blood Cells % 0.2; Platelet Count 218 10^3/ul (150-450); Red Blood Count 4.15 10^6/ul (4.00-5.40); Red Cell Distribution Width 16 % (10.5-15); White Blood Count 12.6 10^3/ul (3.5-10.8)
[2017-11-30 07:38] LABS: EGFR Non-African American 34.8 (>60)
[2017-11-30] MEDS: Vancomycin(*) 1,000 MG in NS 0.9% 250 ML* 250 ML IVPB SCH ×2 (08:38→20:33)
[2017-11-30] MEDS: Atorvastatin* 80 MG TAB PO SCH (08:39)
[2017-11-30] MEDS: Aspirin 81 mg CHEW TAB* 81 MG TAB.CHEW PO SCH (08:39)
[2017-11-30] MEDS: Omeprazole CAP* 20 MG PO SCH (08:39)
[2017-11-30] MEDS: Sertraline* 50 MG TAB PO SCH ×2 (08:39→22:03)
[2017-11-30] MEDS: Gabapentin CAP(*) 300 MG PO SCH ×3 (08:39→22:02)
[2017-11-30] MEDS: oxyCODONE TAB* 5 MG TAB PO PRN ×4 (08:50→22:02)
[2017-11-30] MEDS ORDERED: Insulin GLARGINE(*) 1 UNITS UNIT SUBCUT SCH (09:00)
[2017-11-30] MEDS: Insulin LISPRO* 1 UNITS UNIT SUBCUT SCH ×2 (09:32→13:15)
[2017-11-30] MEDS: Fluticasone NASAL SPRAY 50MCG* 16 gm SPRAY BTL BOTH NARES SCH (10:15)
[2017-11-30] MEDS: CMC: Letrozole (NF) 2.5 MG TAB PO SCH (10:15)
--- NOTE | 2017-11-30 11:41 | CONSULT ---
Consult Consult: [facility] Inpatient Consult Note Date of Consult: 11/30/17 Reason for Consult: uncontrolled diabetes mellitus Reason for Admission: labial abscess/SSTI ASSESSMENT: 47 F with long-standing type 2 diabetes, now presenting with complicated SSTI in setting of uncontrolled hyperglycemia >500mg/dL and A1c >11% . She has been treated with basal insulin (Toujeo) and GLP1RA (Trulicity) recently after failing oral hypoglycemic therapy. Insulin resistance remains a clinical challenge and cannot be overcome with the current regimen. Her estimated insulin requirement is approximately 100 units/day (=1 unit/kg/day), which should be given in a 4-shot regimen consisting of R/N insulin, as below. She will need to reduce her insulin doses today as she was given insulin glargine this morning. Further dose titration will be helpful to estimate her insulin requirement at time of discharge. Oral medications for diabetes are of little benefit at the present time and should not be restarted until she has achieved glycemic control with insulin. This patient should be considered for bariatric surgery to treat her diabetes. PLAN: - d/c insulin glargine - CHECK TSH this admission - START regular insulin 15 units with supper (tonight only) - START NPH insulin 15 units QHS (tonight only) - CHECK 3:00am fingerstick glucose (tonight only) - INCREASE regular insulin to 25 units TID-AC (start tomorrow) - give 1/2 dose if NPO or BG<100 and eating - increase by 5 units every 24 hours until BG<180 - INCREASE NPH insulin to 25 units QHS (start tomorrow) - give full dose if NPO - give 1/2 dose if BG<120 - increase by 5 units every 24 hours until fasting BG<180 - CHANGE to consistent carbohydrate diet with "limit 2 carbohydrate servings per meal" SUBJECTIVE: History of Present Illness: 47 yo F with PMH significant for severe obesity, type 2 diabetes mellitus since adolescence, hyperlipidemia, hypertension, breast cancer on Letrozole, obstructive sleep apnea with CPAP, hypothyroidism and gout, who presented to ED on 11/25/17 with complaints of right labial swelling, where she underwent an I&D and packing of abscess. She was started on clindamycin but did not return for packing removal until 11/29/17, at which time she was admitted. Her diabetes is complicated by neuropathy and nephropathy; no known retinopathy or ASCVD. She is adherent to medications. She notes chronic hyperglycemia >250 at all times and >400 in past several days. She has not had hypoglycemia <80 in many years. Past Medical History: As above. Medications Prior to Admission: Albuterol HFA INHALER* [Ventolin HFA Inhaler*] 1 puff INH Q4H PRN 11/25/17 [ History Confirmed 11/29/17] Aspirin 81 mg CHEW TAB* [Aspirin Low Dose TAB*] 81 mg PO DAILY 11/25/17 [ History Confirmed 11/29/17] Atorvastatin* [Lipitor*] 80 mg PO DAILY 11/25/17 [History Confirmed 11/29/17] Cholecalciferol (Vitamin D3) [Vitamin D3] 2,000 unit PO DAILY 11/25/17 [History Confirmed 11/29/17] Clindamycin Cap(NF) [Clindamycin Cap 300 mg Cap(NF)] 300 mg PO TID #29 cap 11/25 [Rx Confirmed 11/29/17] Cyclobenzaprine TAB* [Flexeril 10 MG TAB*] 10 mg PO TID PRN 11/25/17 [History Confirmed 11/29/17] Dulaglutide (NF) [Trulicity (NF)] 1.5 mg SUBCUT Q7D 11/25/17 [History Confirmed 11/29/17] Gabapentin CAP(*) [Neurontin 300 CAP(*)] 300 mg PO TID 11/25/17 [History Confirmed 11/29/17] Levothyroxine TAB* [Synthroid TAB*] 150 mcg PO DAILY 11/25/17 [History Confirmed 11/29/17] Lisinopril [Lisinopril 2.5 MG-] 7.5 mg PO DAILY 11/25/17 [History Confirmed ] Pantoprazole TAB (NF) [Protonix TAB (NF)] 40 mg PO DAILY 11/25/17 [History Confirmed 11/29/17] Polyvinyl Alcohol/Povidone/Pf [Refresh Classic Eye Drops] 1 each BOTH EYES DAILY 11/25/17 [History Confirmed 11/29/17] Fluticasone NASAL SPRAY 50MCG* [Flonase NASAL SPRAY 50MCG*] 2 spray BOTH NARES DAILY 11/29/17 [History Confirmed 11/29/17] Insulin Glargine (Nf) [Toujeo Solostar Pen (NF)] 80 unit SUBCUT QPM 11/29/17 [ History Confirmed 11/29/17] Insulin Glargine (Nf) [Toujeo Solostar Pen (NF)] 100 unit SUBCUT QAM 11/29/17 [ History Confirmed 11/29/17] Letrozole 2.5 mg PO DAILY 11/29/17 [History Confirmed 11/29/17] Sertraline* [Zoloft*] 50 mg PO BID 11/29/17 [History Confirmed 11/29/17] Inpatient Medications: Acetaminophen (Tylenol Tab*) 975 mg PO Q6H PRN PRN Reason: FEVER/PAIN Last Admin: 11/29/17 23:21 Dose: 975 mg Albuterol (Ventolin Hfa Inhaler*) 1 puff INH Q4H PRN PRN Reason: WHEEZING Aspirin (Aspirin 81 Mg Chew Tab*) 81 mg PO DAILY [facility] Last Admin: 11/30/17 08:39 Dose: 81 mg Atorvastatin Calcium (Lipitor*) 80 mg PO DAILY [facility] Last Admin: 11/30/17 08:39 Dose: 80 mg Cyclobenzaprine HCl (Flexeril Tab*) 10 mg PO TID PRN PRN Reason: SPASMS Dextrose (D50w Syringe 50 Ml*) 12.5 gm IV PUSH .FOR FS < 60 - SS PRN PRN Reason: FS < 60 Fluticasone Propionate (Flonase Nasal [place] 50mcg*) 2 spray BOTH NARES DAILY [facility] Last Admin: 11/30/17 10:15 Dose: 2 spray Gabapentin (Neurontin Cap(*)) 300 mg PO TID [facility] Last Admin: 11/30/17 08:39 Dose: 300 mg Heparin Sodium (Porcine) (Heparin Vial(*)) 5,000 units SUBCUT Q8HR [facility] Last Admin: 11/30/17 06:06 Dose: 5,000 units Hydromorphone HCl (Dilaudid Inj1s*) 0.5 mg IV SLOW PU Q4H PRN PRN Reason: PAIN - BREAKTHROUGH Sodium Chloride (Ns 0.9% 1000 Ml*) 1,000 mls @ 100 mls/hr IV PER RATE [facility] Last Admin: 11/29/17 22:01 Dose: 100 mls/hr Vancomycin HCl 1,000 mg/ (Sodium Chloride) 250 mls @ 166.667 mls/hr IVPB Q12H [facility] Last Admin: 11/30/17 08:38 Dose: 166.667 mls/hr Cefepime HCl 2 gm/ Sodium (Chloride) 100 mls @ 200 mls/hr IVPB Q24H [facility] Last Admin: 11/29/17 22:58 Dose: 200 mls/hr Insulin Glargine (Lantus(*)) 100 units SUBCUT QAM [facility] Last Admin: 11/30/17 09:33 Dose: 100 units Insulin Glargine (Lantus(*)) 80 units SUBCUT QPM [facility] Last Admin: 11/29/17 23:16 Dose: Not Given Insulin Human Lispro (Humalog*) 0 - 10 units SUBCUT ACHS [facility]; Protocol Last Admin: 11/30/17 13:15 Dose: 6 units Letrozole (Femara (Nf)) 2.5 mg PO DAILY [facility]; Protocol Last Admin: 11/30/17 10:15 Dose: 2.5 mg Levothyroxine Sodium (Synthroid Tab*) 150 mcg PO 0600 [facility] Last Admin: 11/30/17 06:06 Dose: 150 mcg Omeprazole (Prilosec Cap*) 20 mg PO DAILY [facility] Last Admin: 11/30/17 08:39 Dose: 20 mg Ondansetron HCl (Zofran Inj*) 4 mg IV Q6H PRN PRN Reason: NAUSEA Oxycodone HCl (Roxycodone Tab*) 5 mg PO Q4H PRN PRN Reason: PAIN Last Admin: 11/30/17 13:15 Dose: 5 mg Pharmacy Consult (Vancomycin Per Pharmacy*) 1 note FOLLOW UP . PRN PRN Reason: PER PROTOCOL Pharmacy Profile Note (Vancomycin Trough Check) 1 note FOLLOW UP 0730 ONE Stop: 12/01/17 07:31 Sertraline HCl (Zoloft*) 50 mg PO BID [facility] Last Admin: 11/30/17 08:39 Dose: 50 mg Allergies/Intolerances: MSO4 Social History: Lives with male partner. Several children with Family History: 2 siblings and 1 child with adult-onset T2DM. Review of Systems: She notes fevers, groin pain, abdominal pain prior to admission. 12 system review otherwise negative. OBJECTIVE: Vital Signs: Temp Pulse Resp BP Pulse Ox 98.6 F 102 18 122/70 94 11/30/17 11:30 11/30/17 11:30 11/30/17 13:15 11/30/17 11:30 11/30/17 12:00 General: obese, supine, alert, pleasant, oriented, no distress ENT: neck supple, no thyromegaly, no bruit is heard Chest: CTAB, no wheezing or crackles CV: RRR, no murmur Abdomen: soft, non-tender Extremities: no edema, distal pulses intact Skin: warm, dry, no rash Neuro: grossly intact motor/sensory in extremities Psych: pleasant affect, pleasant Labs: 11/30/17 06:36 11/30/17 06:36 Total Bilirubin 0.30 mg/dL (0.2-1.0) 11/29/17 14:07 AST 12 U/L (13-39) L 11/29/17 14:07 ALT 19 U/L (7-52) 11/29/17 14:07 Alkaline Phosphatase 119 U/L (34-104) H 11/29/17 14:07 Total Protein 7.4 g/dL (6.4-8.9) 11/29/17 14:07 Albumin 3.3 g/dL (3.2-5.2) 11/29/17 14:07 Globulin 4.1 g/dL (2-4) H 11/29/17 14:07 Albumin/Globulin Ratio 0.8 (1-3) L 11/29/17 14:07 Blood Glucose Monitoring POC Document 11/30/17 08:18 238 Document 11/30/17 12:06 284
--- NOTE | 2017-11-30 12:00 | PN ---
Progress Note - Progress Note Date of Service: 11/30/17 SOAP: Subjective: Patient is post op day1 from incision/drainage of Right vulvar abscess. She is in bed, comfortable, states her vulvar pain is tolerable with medications. denies fever, chills or generalized malaise.[] Objective: [ Vital Signs 11/29/17 11/29/17 11/29/17 15:55 16:00 16:05 Temperature Pulse Rate 112 110 Respiratory 16 Rate Blood Pressure 102/77 106/68 (mmHg) O2 Sat by Pulse 92 93 Oximetry 11/29/17 11/29/17 11/29/17 16:25 16:55 17:00 Temperature Pulse Rate 110 106 107 Respiratory Rate Blood Pressure 91/69 94/68 (mmHg) O2 Sat by Pulse 95 93 91 Oximetry 11/29/17 11/29/17 11/29/17 17:25 17:55 18:00 Temperature Pulse Rate 112 109 107 Respiratory Rate Blood Pressure 97/65 91/70 (mmHg) O2 Sat by Pulse 94 94 92 Oximetry 11/29/17 11/29/17 11/29/17 18:25 18:30 20:16 Temperature 98.9 F 97.7 F Pulse Rate 105 108 Respiratory 20 Rate Blood Pressure 96/74 (mmHg) O2 Sat by Pulse 95 99 Oximetry 11/29/17 11/29/17 11/29/17 20:19 20:20 20:31 Temperature Pulse Rate 107 108 101 Respiratory Rate Blood Pressure 126/85 112/87 129/83 (mmHg) O2 Sat by Pulse 90 93 98 Oximetry 11/29/17 11/29/17 11/29/17 20:50 21:15 21:44 Temperature 98.3 F Pulse Rate 98 92 102 Respiratory 18 Rate Blood Pressure 100/74 120/70 146/100 (mmHg) O2 Sat by Pulse 92 95 97 Oximetry 11/29/17 11/30/17 11/30/17 23:56 00:00 00:19 Temperature 103.0 F Pulse Rate 132 Respiratory 16 16 16 Rate Blood Pressure 124/61 (mmHg) O2 Sat by Pulse 95 96 Oximetry 11/30/17 11/30/17 11/30/17 00:51 03:42 03:56 Temperature 99.6 F Pulse Rate 123 Respiratory 16 16 16 Rate Blood Pressure 94/59 (mmHg) O2 Sat by Pulse 97 94 94 Oximetry 11/30/17 11/30/17 11/30/17 04:32 05:24 05:58 Temperature 98.2 F Pulse Rate 96 Respiratory 16 16 Rate Blood Pressure 97/66 (mmHg) O2 Sat by Pulse 96 92 97 Oximetry 11/30/17 11/30/17 11/30/17 07:24 08:39 08:50 Temperature 98.6 F Pulse Rate 92 Respiratory 16 18 18 Rate Blood Pressure 132/73 (mmHg) O2 Sat by Pulse 98 Oximetry Laboratory Results - last 24 hr 11/29/17 11/29/17 11/29/17 14:07 14:07 14:07 WBC 13.9 H RBC 4.68 Hgb 14.0 Hct 41 MCV 88 MCH 30 MCHC 34 RDW 16 H Plt Count 264 MPV 7.3 L Neut % (Auto) 76.9 Lymph % (Auto) 12.3 L [place] % (Auto) 7.4 H Eos % (Auto) 2.5 Baso % (Auto) 0.9 Absolute Neuts (auto) 10.7 H Absolute Lymphs (auto) 1.7 Absolute Monos (auto) 1.0 H Absolute Eos (auto) 0.3 Absolute Basos (auto) 0.1 Absolute Nucleated RBC 0 Nucleated RBC % 0.1 Sodium 131 L Potassium 4.4 Chloride 99 L Carbon Dioxide 21 L Anion Gap 11 BUN 23 Creatinine 1.49 H Est GFR ( Amer) 45.4 Est GFR (Non-Af Amer) 37.5 BUN/Creatinine Ratio 15.4 Glucose 385 H POC Glucose (mg/dL) Hemoglobin A1c Lactic Acid 1.5 Calcium 9.4 Total Bilirubin 0.30 AST 12 L ALT 19 Alkaline Phosphatase 119 H C-Reactive Protein 256.61 H Total Protein 7.4 Albumin 3.3 Globulin 4.1 H Albumin/Globulin Ratio 0.8 L 11/29/17 11/29/17 11/29/17 14:07 18:13 19:06 WBC RBC Hgb Hct MCV MCH MCHC RDW Plt Count MPV Neut % (Auto) Lymph % (Auto) [place] % (Auto) Eos % (Auto) Baso % (Auto) Absolute Neuts (auto) Absolute Lymphs (auto) Absolute Monos (auto) Absolute Eos (auto) Absolute Basos (auto) Absolute Nucleated RBC Nucleated RBC % Sodium Potassium Chloride Carbon Dioxide Anion Gap BUN Creatinine Est GFR ( Amer) Est GFR (Non-Af Amer) BUN/Creatinine Ratio Glucose POC Glucose (mg/dL) 346 H 329 H Hemoglobin A1c 11.3 H Lactic Acid Calcium Total Bilirubin AST ALT Alkaline Phosphatase C-Reactive Protein Total Protein Albumin Globulin Albumin/Globulin Ratio 11/29/17 11/30/17 11/30/17 20:29 01:28 06:36 WBC 12.6 H RBC 4.15 Hgb 12.3 Hct 38 MCV 91 MCH 30 MCHC 33 RDW 16 H Plt Count 218 MPV 7.2 L Neut % (Auto) 84.4 H Lymph % (Auto) 7.9 L [place] % (Auto) 5.7 Eos % (Auto) 1.7 Baso % (Auto) 0.3 Absolute Neuts (auto) 10.6 H Absolute Lymphs (auto) 1.0 Absolute Monos (auto) 0.7 Absolute Eos (auto) 0.2 Absolute Basos (auto) 0 Absolute Nucleated RBC 0 Nucleated RBC % 0.2 Sodium Potassium Chloride Carbon Dioxide Anion Gap BUN Creatinine Est GFR ( Amer) Est GFR (Non-Af Amer) BUN/Creatinine Ratio Glucose POC Glucose (mg/dL) 256 H Hemoglobin A1c Lactic Acid 1.0 Calcium Total Bilirubin AST ALT Alkaline Phosphatase C-Reactive Protein Total Protein Albumin Globulin Albumin/Globulin Ratio 11/30/17 11/30/17 06:36 08:11 WBC RBC Hgb Hct MCV MCH MCHC RDW Plt Count MPV Neut % (Auto) Lymph % (Auto) [place] % (Auto) Eos % (Auto) Baso % (Auto) Absolute Neuts (auto) Absolute Lymphs (auto) Absolute Monos (auto) Absolute Eos (auto) Absolute Basos (auto) Absolute Nucleated RBC Nucleated RBC % Sodium 136 Potassium 4.8 Chloride 110 Carbon Dioxide 17 L Anion Gap 9 BUN 22 Creatinine 1.59 H Est GFR ( Amer) 42.1 Est GFR (Non-Af Amer) 34.8 BUN/Creatinine Ratio 13.8 Glucose 269 H POC Glucose (mg/dL) 238 H Hemoglobin A1c Lactic Acid Calcium 7.6 L Total Bilirubin AST ALT Alkaline Phosphatase C-Reactive Protein Total Protein Albumin Globulin Albumin/Globulin Ratio Microbiology 11/29/17 19:50 Wound - Other Anaerobic Culture - Preliminary No Growth Day 1 11/29/17 19:50 Misc Source (See Comment) - Other Skin and Soft Tissue MRSA/ MSSA (PCR - Final Mrsa Negative S.aureus Negative 11/29/17 19:50 Misc Source (See Comment) - Other Gram Stain - Final 11/29/17 19:50 Misc Source (See Comment) - Other Wound Culture - Preliminary No Growth Day 1 ] Assessment: [Right labia majora-swollen and tender, post I/D abscess, sury drain is intact, minimal discharge noted, packing in situ, mild cellulitis confined to abscess whic measures 10cm A/P X 4cm wide and 4cm deep.] Plan: [Continue antibiotic treatment, continue sitz bath, plan packing and sury drain removal 12/01/17 am. reevaluate need for reardon catheter tommorrow if swelling decreased.]
[2017-11-30] MEDS: NS 0.9% 1000 ML* 1,000 ML IV SCH (13:58)
[2017-11-30] MEDS ORDERED: Nicotine Inhaler* 10 MG AMP INH PRN (15:01)
[2017-11-30] MEDS ORDERED: Mouth Piece, Nicotine* 1 EACH CARTRIDGE INH PRN ×2 (15:01)
--- NOTE | 2017-11-30 15:06 | PN ---
Subjective Date of Service: 11/30/17 Interval History: Patient seen and examined, states she's sore, was able to walk around the unit with oxygen on. Denies fever or chills, no acute SOB, no chest pain, no further complaints. at bedside. Objective Active Medications: Acetaminophen (Tylenol Tab*) 975 mg PO Q6H PRN PRN Reason: FEVER/PAIN Last Admin: 11/29/17 23:21 Dose: 975 mg Albuterol (Ventolin Hfa Inhaler*) 1 puff INH Q4H PRN PRN Reason: WHEEZING Aspirin (Aspirin 81 Mg Chew Tab*) 81 mg PO DAILY [facility] Last Admin: 11/30/17 08:39 Dose: 81 mg Atorvastatin Calcium (Lipitor*) 80 mg PO DAILY [facility] Last Admin: 11/30/17 08:39 Dose: 80 mg Cyclobenzaprine HCl (Flexeril Tab*) 10 mg PO TID PRN PRN Reason: SPASMS Dextrose (D50w Syringe 50 Ml*) 12.5 gm IV PUSH .FOR FS < 60 - SS PRN PRN Reason: FS < 60 Fluticasone Propionate (Flonase Nasal [place] 50mcg*) 2 spray BOTH NARES DAILY [facility] Last Admin: 11/30/17 10:15 Dose: 2 spray Gabapentin (Neurontin Cap(*)) 300 mg PO TID [facility] Last Admin: 11/30/17 14:26 Dose: 300 mg Heparin Sodium (Porcine) (Heparin Vial(*)) 5,000 units SUBCUT Q8HR [facility] Last Admin: 11/30/17 14:26 Dose: 5,000 units Hydromorphone HCl (Dilaudid Inj1s*) 0.5 mg IV SLOW PU Q4H PRN PRN Reason: PAIN - BREAKTHROUGH Sodium Chloride (Ns 0.9% 1000 Ml*) 1,000 mls @ 100 mls/hr IV PER RATE [facility] Last Admin: 11/30/17 13:58 Dose: 100 mls/hr Vancomycin HCl 1,000 mg/ (Sodium Chloride) 250 mls @ 166.667 mls/hr IVPB Q12H [facility] Last Admin: 11/30/17 08:38 Dose: 166.667 mls/hr Cefepime HCl (Maxipime 2 Gm In Dextrose Duplex (*)) 2 gm in 50 mls @ 100 mls/ hr IV Q24H [facility] Insulin Human NPH (Insulin Nph(*)) 15 units SUBCUT BEDTIME [facility] Stop: 11/30/17 21:01 Insulin Human NPH (Insulin Nph(*)) 25 units SUBCUT BEDTIME [facility] Insulin Human Regular (Insulin Regular(*)) 15 units SUBCUT AC ONE Stop: 11/30/17 16:31 Insulin Human Regular (Insulin Regular(*)) 25 units SUBCUT AC [facility] Letrozole (Femara (Nf)) 2.5 mg PO DAILY [facility]; Protocol Last Admin: 11/30/17 10:15 Dose: 2.5 mg Levothyroxine Sodium (Synthroid Tab*) 150 mcg PO 0600 [facility] Last Admin: 11/30/17 06:06 Dose: 150 mcg Omeprazole (Prilosec Cap*) 20 mg PO DAILY [facility] Last Admin: 11/30/17 08:39 Dose: 20 mg Ondansetron HCl (Zofran Inj*) 4 mg IV Q6H PRN PRN Reason: NAUSEA Oxycodone HCl (Roxycodone Tab*) 5 mg PO Q4H PRN PRN Reason: PAIN Last Admin: 11/30/17 13:15 Dose: 5 mg Pharmacy Consult (Vancomycin Per Pharmacy*) 1 note FOLLOW UP . PRN PRN Reason: PER PROTOCOL Pharmacy Profile Note (Vancomycin Trough Check) 1 note FOLLOW UP 0730 ONE Stop: 12/01/17 07:31 Sertraline HCl (Zoloft*) 50 mg PO BID [facility] Last Admin: 11/30/17 08:39 Dose: 50 mg Vital Signs - 8 hr 11/30/17 11/30/17 11/30/17 07:24 08:00 08:39 Temperature 98.6 F Pulse Rate 92 Respiratory 16 18 18 Rate Blood Pressure 132/73 (mmHg) O2 Sat by Pulse 98 93 Oximetry 11/30/17 11/30/17 11/30/17 08:50 10:00 11:30 Temperature 98.6 F Pulse Rate 102 Respiratory 18 18 16 Rate Blood Pressure 122/70 (mmHg) O2 Sat by Pulse 96 95 Oximetry 11/30/17 11/30/17 11/30/17 12:00 13:08 13:09 Temperature Pulse Rate Respiratory 18 18 18 Rate Blood Pressure (mmHg) O2 Sat by Pulse 94 Oximetry 11/30/17 11/30/17 11/30/17 13:15 14:00 14:26 Temperature Pulse Rate Respiratory 18 18 18 Rate Blood Pressure (mmHg) O2 Sat by Pulse Oximetry Oxygen Devices in Use Now: Nasal Cannula Appearance: Alert, appears older than stated age, NAD Eyes: No Scleral Icterus, PERRLA Ears/Nose/Mouth/Throat: Mucous Membranes Moist Neck: NL Appearance and Movements; NL JVP, Trachea Midline Respiratory: - - expiratory rub bilateral, lower lung bases, no wheeze or rhonchi Abdominal: NL Sounds; No Tenderness; No Distention, - - hypoactive BS, protuberant abdomen/pannis Extremities: No Edema Skin: - - sury drain, sersanguinous, wound packing and guaze dressing Neurological: Alert and Oriented x 3, NL Gait Lines/Tubes/Other Access: Clean, Dry and Intact Reardon - draining clear yellow urine Nutrition: Taking PO's Result Diagrams: 11/30/17 06:36 11/30/17 06:36 Additional Lab and Data: Lab Results 11/29/17 11/29/17 11/29/17 Range/Units 14:07 14:07 14:07 WBC 13.9 H (3.5-10.8) 10^3/ul RBC 4.68 (4.00-5.40) 10^6/ul Hgb 14.0 (12.0-16.0) g/dl Hct 41 (35-47) % MCV 88 (80-97) fL MCH 30 (27-31) pg MCHC 34 (31-36) g/dl RDW 16 H (10.5-15) % Plt Count 264 (150-450) 10^3/ul MPV 7.3 L (7.4-10.4) um3 Neut % (Auto) 76.9 (38-83) % Lymph % (Auto) 12.3 L (25-47) % [place] % (Auto) 7.4 H (0-7) % Eos % (Auto) 2.5 (0-6) % Baso % (Auto) 0.9 (0-2) % Absolute Neuts (auto) 10.7 H (1.5-7.7) 10^3/ul Absolute Lymphs (auto) 1.7 (1.0-4.8) 10^3/ul Absolute Monos (auto) 1.0 H (0-0.8) 10^3/ul Absolute Eos (auto) 0.3 (0-0.6) 10^3/ul Absolute Basos (auto) 0.1 (0-0.2) 10^3/ul Absolute Nucleated RBC 0 10^3/ul Nucleated RBC % 0.1 Sodium 131 L (135-145) mmol/L Potassium 4.4 (3.5-5.0) mmol/L Chloride 99 L (101-111) mmol/L Carbon Dioxide 21 L (22-32) mmol/L Anion Gap 11 (2-11) mmol/L BUN 23 (6-24) mg/dL Creatinine 1.49 H (0.51-0.95) mg/dL Est GFR ( Amer) 45.4 (>60) Est GFR (Non-Af Amer) 37.5 (>60) BUN/Creatinine Ratio 15.4 (8-20) Glucose 385 H (70-100) mg/dL Lactic Acid 1.5 (0.5-2.0) mmol/L Calcium 9.4 (8.6-10.3) mg/dL Total Bilirubin 0.30 (0.2-1.0) mg/dL AST 12 L (13-39) U/L ALT 19 (7-52) U/L Alkaline Phosphatase 119 H (34-104) U/L C-Reactive Protein 256.61 H (<8.01) mg/L Total Protein 7.4 (6.4-8.9) g/dL Albumin 3.3 (3.2-5.2) g/dL Globulin 4.1 H (2-4) g/dL Albumin/Globulin Ratio 0.8 L (1-3) Microbiology and Other Data: Microbiology 11/29/17 19:50 Anaerobic Culture - Preliminary Wound - Other No Growth Day 1 11/29/17 19:50 Skin and Soft Tissue MRSA/MSSA (PCR - Final Misc Source (See Comment) - Other Mrsa Negative S.aureus Negative Gram Stain - Final Wound Culture - Preliminary No Growth Day 1 Assess/Plan/Problems-Billing Assessment: This is a 47 year old female that presented for wound check in the ER after having I&D of right labia, now found to have worsening abscess and pain, and hyperglycemia, s/p surgical I&D 11/30. - Patient Problems (1) Abscess of right genital labia Code(s): N76.4 - ABSCESS OF VULVA SNOMED Code(s): 462566448 Comment: - s/p I&D with process development engineer, continue packing and drain - Continue cefepime and vanco, follow troughs - Follow WBCs and temps and cultures - DC reardon tomorrow if possible (2) Uncontrolled diabetes mellitus Code(s): E11.65 - TYPE 2 DIABETES MELLITUS WITH HYPERGLYCEMIA SNOMED Code(s): 714291673 Comment: - Discontinue current home regimen, as sugars remain uncontrolled - Endocrine consult appreciated, please see MAR for new insulin regimen - Patient will need scripts for new insulin at DC home - Diet modified to consistent carb with ONLY 2 carb servings per meal - If BG not improving, may increase regular insulin by 5units Q24h and NPH by 5 units Q24h until BG <[address] Lyons's recommedations (3) COPD (chronic obstructive pulmonary disease) Code(s): J44.9 - CHRONIC OBSTRUCTIVE PULMONARY DISEASE, UNSPECIFIED SNOMED Code(s): 98704762 Comment: - Home O2 at night - Currently on continuous, wean as tolerated - continue IS - Albuterol PRN - Not in exacerbation (4) RUSS on CPAP Code(s): G47.33 - OBSTRUCTIVE SLEEP APNEA (ADULT) (PEDIATRIC); Z99.89 - DEPENDENCE ON OTHER ENABLING MACHINES AND DEVICES SNOMED Code(s): 09810974 Comment: - Continue CPAP (5) HLD (hyperlipidemia) Code(s): E78.5 - HYPERLIPIDEMIA, UNSPECIFIED SNOMED Code(s): 41121093 Comment: - Continue statin (6) Hypothyroid Code(s): E03.9 - HYPOTHYROIDISM, UNSPECIFIED SNOMED Code(s): 25847857 Comment: - Continue synthroid (7) Breast cancer Code(s): C50.919 - MALIGNANT NEOPLASM OF UNSP SITE OF UNSPECIFIED FEMALE BREAST SNOMED Code(s): 215991659 Comment: - In remission on letrozole (8) Diabetic neuropathy associated with diabetes mellitus due to underlying condition Code(s): E08.40 - DIABETES DUE TO UNDERLYING CONDITION W DIABETIC NEUROP, UNSP SNOMED Code(s): 958788626 Comment: - continue gabapentin, supportive care with strict glycemic control (9) DVT prophylaxis Code(s): UPF3356 - SNOMED Code(s): 648069667 Comment: - HSQ (10) Full code status Current Visit: Yes Status: Acute Code(s): Z78.9 - OTHER SPECIFIED HEALTH STATUS SNOMED Code(s): 377747007 Status and Disposition: Remain inpatient.
--- NOTE | 2017-11-30 16:19 | OP ---
AMENDED REPORT NOW INCLUDES DATE OF OPERATION - ESIGNED BEFORE ADJUSTMENTS * CC: [facility]; [facility] * DATE OF OPERATION: 11/30/17 - ROOM #339 DATE OF : 70 SURGEON: Joann Blum MD SHEAR SCRAPMAN: Alec Morales MD ANESTHESIOLOGIST: ANESTHESIA: Sedation and local. PRE-OP DIAGNOSIS: Large right labial abscess. POST-OP DIAGNOSIS: Large right labial abscess. OPERATIVE PROCEDURE: Incision and drainage of large right labial abscess. ESTIMATED BLOOD LOSS: 20 cc. FINDINGS: 6 cm in length, 4 to 5 cm in width multiloculated right labial abscess , drainage of pus with surrounding erythema and induration over the right labia , right vulva extending towards the groin. COMPLICATIONS: None. COUNTS: Sponge, lap, and needle count were correct x2. CONDITION: The patient was brought to the recovery room, awake and in stable condition. DESCRIPTION OF PROCEDURE: The patient was brought to the operating room. When sedation was found to be adequate, the patient was prepped and draped in the usual sterile fashion in the dorsal lithotomy position. Time-out was performed. Exam under anesthesia was performed. Local was instilled. An approximately 3-cm incision was made longitudinally in the midline of the right labia. Pus was drained. Loculations were broken up with the [place]aria clamp and more pus was drained. The abscess cavity was washed out. Any small bleeders were cauterized with the Bovie. A Eleni drain was sewn to the skin with one 0 -silk suture. The abscess cavity was packed. A Mason catheter was placed under sterile condition. There was no active bleeding. The patient tolerated the procedure well. Sponge, lap, and needle count were correct x2 and the patient was brought to the recovery room awake and in stable condition. [id number]/[facility] #: [id number] [facility]
[2017-11-30] MEDS ORDERED: Insulin REGULAR(*) 1 UNITS UNIT SUBCUT ONE (16:30)
[2017-11-30] MEDS ORDERED: Insulin REGULAR(*) 1 UNITS UNIT SUBCUT SCH (16:30)
[2017-11-30] MEDS ORDERED: Insulin NPH(*) 1 UNITS UNIT SUBCUT SCH (21:00)
[2017-11-30] MEDS: Acetaminophen TAB* 325 MG PO PRN (22:01)
[2017-11-30] MEDS: Cefepime 2 GM in Dextrose(*) 2 GM/50 ML BAG IV SCH (22:54)
[2017-12-01] MEDS: NS 0.9% 1000 ML* 1,000 ML IV SCH (02:08)
[2017-12-01] MEDS: oxyCODONE TAB* 5 MG TAB PO PRN ×2 (05:58→21:22)
[2017-12-01] MEDS: Heparin VIAL(*) 5000 UNITS/ML VIAL (FIVE THOUSAND) SUBCUT SCH ×3 (05:58→21:24)
[2017-12-01] MEDS: Acetaminophen TAB* 325 MG PO PRN ×2 (05:58→17:56)
[2017-12-01] MEDS: Levothyroxine TAB* 150 MCG TAB PO SCH (05:58)
[2017-12-01] MEDS ORDERED: Vancomycin Trough Check NOTE FOLLOW UP ONE (07:30)
[2017-12-01] MEDS: Vancomycin(*) 1,000 MG in NS 0.9% 250 ML* 250 ML IVPB SCH (09:08)
[2017-12-01] MEDS: Fluticasone NASAL SPRAY 50MCG* 16 gm SPRAY BTL BOTH NARES SCH (09:11)
[2017-12-01] MEDS: Atorvastatin* 80 MG TAB PO SCH (09:11)
[2017-12-01] MEDS: Aspirin 81 mg CHEW TAB* 81 MG TAB.CHEW PO SCH (09:12)
[2017-12-01] MEDS: Omeprazole CAP* 20 MG PO SCH (09:12)
[2017-12-01] MEDS: Sertraline* 50 MG TAB PO SCH ×2 (09:12→21:20)
[2017-12-01] MEDS: Insulin REGULAR(*) 1 UNITS UNIT SUBCUT SCH ×4 (09:12→17:53)
[2017-12-01] MEDS: Gabapentin CAP(*) 300 MG PO SCH ×3 (09:12→21:20)
[2017-12-01] MEDS: CMC: Letrozole (NF) 2.5 MG TAB PO SCH (09:13)
--- NOTE | 2017-12-01 12:16 | PN ---
Progress Note - Progress Note Date of Service: 12/01/17 SOAP: Subjective: [Pt notes area feels better and is able to ambulate] Objective: [afeb X 24 hours/ VSS] right vulva: packing removed/copious drainage on pad. no foul odor/ ++ erythema an induration/ less tender per patient Assessment: [Pt 47 yo type I DM/morbid obesity with right vulvar abscess that required I&D. Pt seems to be improving slowly.] Plan: []Con't with good glycemic control/con't with broad sprectrum ABX/prelim MRSA is negative/prelim blood culture is negative. Plan on D/C Mason today as pt is ambulatory and will begin perineum care with spray bottle. Watch for ongoing improvement and assure no closure of wound with [place] in place.
--- NOTE | 2017-12-01 16:00 | PN ---
Subjective Date of Service: 12/01/17 Interval History: Patient seen and examined at bedside. Denies fever, chills, shortness of breath , chest discomfort, N/V/D. Pt feels like the swelling is improving. She was able to walk around the unit twice without difficulty. NSG staff continue to wean her oxygen as able. She is complaining of a headache and low back pain at this time. She reports doing her sitz baths as instructed. She reports that she got fruit on her tray today and Dr. Lyons instructed her to have no fruit. Tele: Sinus rhythm, rate 80-90's Family History: Unchanged from Admission Social History: Unchanged from Admission Past Medical History: Unchanged from Admission Objective Active Medications: Acetaminophen (Tylenol Tab*) 975 mg PO Q6H PRN Reason: FEVER/PAIN Albuterol (Ventolin Hfa Inhaler*) 1 puff INH Q4H PRN Reason: WHEEZING Aspirin (Aspirin 81 Mg Chew Tab*) 81 mg PO DAILY [facility] Atorvastatin Calcium (Lipitor*) 80 mg PO DAILY [facility] Cyclobenzaprine HCl (Flexeril Tab*) 10 mg PO TID PRN Reason: SPASMS Device (Nicotine Mouth Piece*) 1 each INH .USE WITH NICOTROL PRN Reason: CRAVING Device (Nicotine Mouth Piece*) 1 each INH .USE WITH NICOTROL PRN Reason: CRAVING Dextrose (D50w Syringe 50 Ml*) 12.5 gm IV PUSH .FOR FS < 60 - SS PRN Reason: FS < 60 Fluticasone Propionate (Flonase Nasal [place] 50mcg*) 2 spray BOTH NARES DAILY [facility] Gabapentin (Neurontin Cap(*)) 300 mg PO TID [facility] Heparin Sodium (Porcine) (Heparin Vial(*)) 5,000 units SUBCUT Q8HR [facility] Hydromorphone HCl (Dilaudid Inj1s*) 0.5 mg IV SLOW PU Q4H PRN Reason: PAIN - BREAKTHROUGH Sodium Chloride (Ns 0.9% 1000 Ml*) 1,000 mls @ 100 mls/hr IV PER RATE [facility] Cefepime HCl (Maxipime 2 Gm In Dextrose Duplex (*)) 2 gm in 50 mls @ 100 mls/ hr IV Q24H [facility] Vancomycin HCl 750 mg/ Sodium (Chloride) 250 mls @ 166.667 mls/hr IVPB Q12H [facility] Insulin Human NPH (Insulin Nph(*)) 25 units SUBCUT BEDTIME [facility] Insulin Human Regular (Insulin Regular(*)) 25 units SUBCUT AC [facility] Letrozole (Femara (Nf)) 2.5 mg PO DAILY [facility]; Protocol Levothyroxine Sodium (Synthroid Tab*) 150 mcg PO 0600 [facility] Nicotine (Nicotine Inhaler*) 10 mg INH Q2H PRN Reason: CRAVING Omeprazole (Prilosec Cap*) 20 mg PO DAILY [facility] Ondansetron HCl (Zofran Inj*) 4 mg IV Q6H PRN Reason: NAUSEA Oxycodone HCl (Roxycodone Tab*) 5 mg PO Q4H PRN Reason: PAIN Pharmacy Consult (Vancomycin Per Pharmacy*) 1 note FOLLOW UP . PRN Pharmacy Profile Note (Vancomycin Trough Check) 1 note FOLLOW UP ONCE ONE Stop: 12/03/17 07:31 Sertraline HCl (Zoloft*) 50 mg PO BID [facility] Vital Signs - 8 hr 12/01/17 12/01/17 12/01/17 09:12 11:31 11:48 Temperature 98.6 F Pulse Rate 92 Respiratory 18 16 18 Rate Blood Pressure 114/75 (mmHg) O2 Sat by Pulse 95 Oximetry 12/01/17 14:33 Temperature Pulse Rate Respiratory 18 Rate Blood Pressure (mmHg) O2 Sat by Pulse Oximetry Oxygen Devices in Use Now: None Appearance: NAD, sitting up in a chair Ears/Nose/Mouth/Throat: Mucous Membranes Moist Respiratory: Symmetrical Chest Expansion and Respiratory Effort, Clear to Auscultation - , diminished Cardiovascular: NL Sounds; No Murmurs; No JVD, RRR - , tachy Abdominal: - - Abdomen obese and soft Extremities: No Edema Skin: - - Erythema to right labia improving, continues to have induration to right labia and mons pubis but this is decreased from admission. Sury drain in place, draining serosang drainage. Neurological: Alert and Oriented x 3 Lines/Tubes/Other Access: Clean, Dry and Intact Peripheral IV - site benign Result Diagrams: 11/30/17 06:36 11/30/17 06:36 Additional Lab and Data: . Microbiology and Other Data: Microbiology 11/29/17 19:50 Anaerobic Culture - Preliminary Wound - Other No Growth Day 1 11/29/17 19:50 Skin and Soft Tissue MRSA/MSSA (PCR - Final Misc Source (See Comment) - Other Mrsa Negative S.aureus Negative Gram Stain - Final Wound Culture - Preliminary No Growth Day 1 Assess/Plan/Problems-Billing Assessment: Ms. Ray is a 47 year old female with PMH significant for uncontrolled DM, morbid obesity, HLD, HTN, and RUSS that presented for wound check in the ER after having I&D of right labia, now found to have worsening abscess and pain, and hyperglycemia, s/p surgical I&D 11/30. - Patient Problems (1) Abscess of right genital labia Code(s): N76.4 - ABSCESS OF VULVA SNOMED Code(s): 861605842 Comment: - S/P I&D by honey processor, POD #2 - Afebrile and leukocytosis improving - Wound culture, no growth - Blood cultures, no growth day #1/2 - Continue sury drain per AEROSPACE TECHNICIAN, packing removed today - Continue cefepime and vanco - Reheck labs in the AM (2) Uncontrolled diabetes mellitus Code(s): E11.65 - TYPE 2 DIABETES MELLITUS WITH HYPERGLYCEMIA SNOMED Code(s): 007081742 Comment: - Glucose 140-210's, improving - Discontinue current home regimen, as sugars remain uncontrolled - Endocrine consult appreciated - Diet modified to consistent carb with ONLY 2 carb servings per meal - Continue Regular insulin with meals and NPH at HS - If BG not improving, will increase regular insulin by 5units Q24h and NPH by 5 units Q24h until BG <[address] Lyons's recommedations (3) COPD (chronic obstructive pulmonary disease) Code(s): J44.9 - CHRONIC OBSTRUCTIVE PULMONARY DISEASE, UNSPECIFIED SNOMED Code(s): 74965263 Comment: - No signs of acute exacerbation - Home O2 at night - Currently on continuous O2, wean as tolerated - Continue IS and albuterol PRN (4) Breast cancer Code(s): C50.919 - MALIGNANT NEOPLASM OF UNSP SITE OF UNSPECIFIED FEMALE BREAST SNOMED Code(s): 019813876 Comment: - S/P left mastectomy - Continue letrozole (5) Diabetic neuropathy associated with diabetes mellitus due to underlying condition Code(s): E08.40 - DIABETES DUE TO UNDERLYING CONDITION W DIABETIC NEUROP, UNSP SNOMED Code(s): 893155175 Comment: - Continue gabapentin and supportive care with strict glycemic control (6) HLD (hyperlipidemia) Code(s): E78.5 - HYPERLIPIDEMIA, UNSPECIFIED SNOMED Code(s): 55072267 Comment: - Continue statin (7) RUSS on CPAP Code(s): G47.33 - OBSTRUCTIVE SLEEP APNEA (ADULT) (PEDIATRIC); Z99.89 - DEPENDENCE ON OTHER ENABLING MACHINES AND DEVICES SNOMED Code(s): 65085248 Comment: - Continue CPAP (8) HTN (hypertension) Code(s): I10 - ESSENTIAL (PRIMARY) HYPERTENSION SNOMED Code(s): 11092942 Comment: - Normotensive, SBP 100-120's - Continue to monitor blood pressures (9) Hypothyroid Code(s): E03.9 - HYPOTHYROIDISM, UNSPECIFIED SNOMED Code(s): 99464505 Comment: - Continue synthroid (10) DVT prophylaxis Code(s): [id number] - SNOMED Code(s): 614306027 Comment: - HSQ (11) Full code status Code(s): Z78.9 - OTHER SPECIFIED HEALTH STATUS SNOMED Code(s): 259639603 Status and Disposition: Inpatient. Discharge to home when medically stable.
[2017-12-01] MEDS: Vancomycin(*) 750 MG in NS 0.9% 250 ML* 250 ML IVPB SCH (20:09)
[2017-12-01] MEDS ORDERED: Insulin NPH(*) 1 UNITS UNIT SUBCUT SCH (21:00)
[2017-12-01] MEDS: Cefepime 2 GM in Dextrose(*) 2 GM/50 ML BAG IV SCH (23:37)
[2017-12-02] MEDS: oxyCODONE TAB* 5 MG TAB PO PRN ×4 (03:20→17:51)
[2017-12-02] MEDS: Acetaminophen TAB* 325 MG PO PRN ×3 (03:20→21:48)
[2017-12-02] MEDS: Levothyroxine TAB* 150 MCG TAB PO SCH (05:33)
[2017-12-02] MEDS: Heparin VIAL(*) 5000 UNITS/ML VIAL (FIVE THOUSAND) SUBCUT SCH ×3 (05:34→21:42)
[2017-12-02 06:40] LABS: ABS Basophils 0.1 10^3/ul (0-0.2); ABS Eosinophils 0.3 10^3/ul (0-0.6); ABS Lymphocytes 1.6 10^3/ul (1.0-4.8); ABS Monocytes 0.6 10^3/ul (0-0.8); ABS Neutrophils 6.9 10^3/ul (1.5-7.7); ABS Nucleated RBC 0 10^3/ul; Eosinophil % 3.1 % (0-6); Hematocrit 35 % (35-47); Hemoglobin 11.6 g/dl (12.0-16.0); Lymphocyte % 17.3 % (25-47); Mean Corpuscular HGB Conc 33 g/dl (31-36); Mean Corpuscular Hemoglobin 30 pg (27-31); Mean Corpuscular Volume 89 fL (80-97); Mean Platelet Volume 7.2 um3 (7.4-10.4); Nucleated Red Blood Cells % 0.1; Platelet Count 253 10^3/ul (150-450); Red Blood Count 3.91 10^6/ul (4.00-5.40); Red Cell Distribution Width 15 % (10.5-15); White Blood Count 9.5 10^3/ul (3.5-10.8)
[2017-12-02 07:05] LABS: EGFR Non-African American 37.8 (>60)
[2017-12-02] MEDS: Atorvastatin* 80 MG TAB PO SCH (08:51)
[2017-12-02] MEDS: Vancomycin(*) 750 MG in NS 0.9% 250 ML* 250 ML IVPB SCH (08:51)
[2017-12-02] MEDS: Sertraline* 50 MG TAB PO SCH ×2 (08:51→21:40)
[2017-12-02] MEDS: Omeprazole CAP* 20 MG PO SCH (08:51)
[2017-12-02] MEDS: CMC: Letrozole (NF) 2.5 MG TAB PO SCH (08:51)
[2017-12-02] MEDS: Aspirin 81 mg CHEW TAB* 81 MG TAB.CHEW PO SCH (08:51)
[2017-12-02] MEDS: Fluticasone NASAL SPRAY 50MCG* 16 gm SPRAY BTL BOTH NARES SCH (08:52)
[2017-12-02] MEDS: Gabapentin CAP(*) 300 MG PO SCH ×3 (08:52→21:40)
[2017-12-02] MEDS: Insulin REGULAR(*) 1 UNITS UNIT SUBCUT SCH ×2 (08:54→11:46)
--- NOTE | 2017-12-02 12:23 | PN ---
Subjective Date of Service: 12/02/17 Interval History: Patient seen and examined at bedside. Denies fever, chills, shortness of breath , chest discomfort, N/V/D. Pt states that her pain is controlled and she is able to ambulate. Pt denies any symptoms of hypoglycemia. Family History: Unchanged from Admission Social History: Unchanged from Admission Past Medical History: Unchanged from Admission Objective Active Medications: Acetaminophen (Tylenol Tab*) 975 mg PO Q6H PRN Reason: FEVER/PAIN Albuterol (Ventolin Hfa Inhaler*) 1 puff INH Q4H PRN Reason: WHEEZING Aspirin (Aspirin 81 Mg Chew Tab*) 81 mg PO DAILY [facility] Atorvastatin Calcium (Lipitor*) 80 mg PO DAILY [facility] Cephalexin HCl (Keflex Cap*) 500 mg PO QID [facility] Cyclobenzaprine HCl (Flexeril Tab*) 10 mg PO TID PRN Reason: SPASMS Device (Nicotine Mouth Piece*) 1 each INH .USE WITH NICOTROL PRN Reason: CRAVING Device (Nicotine Mouth Piece*) 1 each INH .USE WITH NICOTROL PRN Reason: CRAVING Dextrose (D50w Syringe 50 Ml*) 12.5 gm IV PUSH .FOR FS < 60 - SS PRN Reason: FS < 60 Fluticasone Propionate (Flonase Nasal [place] 50mcg*) 2 spray BOTH NARES DAILY [facility] Gabapentin (Neurontin Cap(*)) 300 mg PO TID [facility] Heparin Sodium (Porcine) (Heparin Vial(*)) 5,000 units SUBCUT Q8HR [facility] Hydromorphone HCl (Dilaudid Inj1s*) 0.5 mg IV SLOW PU Q4H PRN Reason: PAIN - BREAKTHROUGH Insulin Human NPH (Insulin Nph(*)) 25 units SUBCUT BEDTIME [facility] Insulin Human Regular (Insulin Regular(*)) 24 units SUBCUT AC [facility] Letrozole (Femara (Nf)) 2.5 mg PO DAILY [facility]; Protocol Levothyroxine Sodium (Synthroid Tab*) 150 mcg PO 0600 [facility] Nicotine (Nicotine Inhaler*) 10 mg INH Q2H PRN Reason: CRAVING Nystatin (Nystatin Oint*) 1 applic TOPICAL TID [facility] Omeprazole (Prilosec Cap*) 20 mg PO DAILY [facility] Ondansetron HCl (Zofran Inj*) 4 mg IV Q6H PRN Reason: NAUSEA Oxycodone HCl (Roxycodone Tab*) 5 mg PO Q4H PRN Reason: PAIN Sertraline HCl (Zoloft*) 50 mg PO BID [facility] Vital Signs - 8 hr 12/02/17 12/02/17 12/02/17 05:20 05:30 07:05 Temperature 99.2 F Pulse Rate 87 Respiratory 18 19 Rate Blood Pressure 122/66 (mmHg) O2 Sat by Pulse 98 92 Oximetry 12/02/17 12/02/17 12/02/17 07:32 07:38 08:52 Temperature Pulse Rate Respiratory 18 18 18 Rate Blood Pressure (mmHg) O2 Sat by Pulse Oximetry 12/02/17 12/02/17 11:33 11:55 Temperature 98.0 F Pulse Rate 84 Respiratory 18 16 Rate Blood Pressure 116/70 (mmHg) O2 Sat by Pulse 94 Oximetry Oxygen Devices in Use Now: Nasal Cannula - 2L Appearance: NAD, sitting up in chair Ears/Nose/Mouth/Throat: Mucous Membranes Moist Respiratory: Symmetrical Chest Expansion and Respiratory Effort, Clear to Auscultation Cardiovascular: NL Sounds; No Murmurs; No JVD, RRR Abdominal: - - Abdomen large, obese, non tender, soft. Extremities: - - Trace bilateral LE edema Skin: - - Erythema to right labia improving, induration to right labia improving , redness to bilateral inner thighs. Sury drain intact Neurological: Alert and Oriented x 3, NL Muscle Strength and Tone Lines/Tubes/Other Access: Clean, Dry and Intact Peripheral IV - site benign Nutrition: Taking PO's Result Diagrams: 12/02/17 06:13 12/02/17 06:13 Additional Lab and Data: . Microbiology and Other Data: Microbiology 11/29/17 19:50 Anaerobic Culture - Preliminary Wound - Other No Growth Day 1 11/29/17 19:50 Skin and Soft Tissue MRSA/MSSA (PCR - Final Misc Source (See Comment) - Other Mrsa Negative S.aureus Negative Gram Stain - Final Wound Culture - Preliminary No Growth Day 1 Assess/Plan/Problems-Billing Assessment: Ms. Ray is a 47 year old female with PMH significant for uncontrolled DM, morbid obesity, HLD, HTN, and RUSS that presented for wound check in the ER after having I&D of right labia, now found to have worsening abscess and pain, and hyperglycemia, s/p surgical I&D 11/30. - Patient Problems (1) Abscess of right genital labia Code(s): N76.4 - ABSCESS OF VULVA SNOMED Code(s): 846438382 Comment: - S/P I&D by scientific programmer analyst, POD #2 - Afebrile and leukocytosis resolved - Wound culture, no growth day #1 - Blood cultures, no growth day #2 - Continue sury drain per OFFICE ASST, plan to remove sury on Tuesday - Discontinue cefepime and vanco, change to Keflex (2) Uncontrolled diabetes mellitus Code(s): E11.65 - TYPE 2 DIABETES MELLITUS WITH HYPERGLYCEMIA SNOMED Code(s): 481755417 Comment: - Glucose 60-150's - Discontinue current home regimen, as sugars remained uncontrolled - Endocrine consult appreciated - Diet modified to consistent carb with ONLY 2 carb servings per meal - Continue Regular insulin with meals and NPH at HS (decreased today due to low glucoses) - If BG not improving, will increase regular insulin by 5units Q24h and NPH by 5 units Q24h until BG <[address] Lyons's recommedations (3) COPD (chronic obstructive pulmonary disease) Code(s): J44.9 - CHRONIC OBSTRUCTIVE PULMONARY DISEASE, UNSPECIFIED SNOMED Code(s): 97880734 Comment: - No signs of acute exacerbation - Home O2 at night - Currently on continuous O2, wean as tolerated - Continue IS and albuterol PRN (4) Breast cancer Code(s): C50.919 - MALIGNANT NEOPLASM OF UNSP SITE OF UNSPECIFIED FEMALE BREAST SNOMED Code(s): 242043619 Comment: - S/P left mastectomy - Continue letrozole (5) Diabetic neuropathy associated with diabetes mellitus due to underlying condition Code(s): E08.40 - DIABETES DUE TO UNDERLYING CONDITION W DIABETIC NEUROP, UNSP SNOMED Code(s): 271683926 Comment: - Continue gabapentin and supportive care with strict glycemic control (6) HLD (hyperlipidemia) Code(s): E78.5 - HYPERLIPIDEMIA, UNSPECIFIED SNOMED Code(s): 72422196 Comment: - Continue statin (7) RUSS on CPAP Code(s): G47.33 - OBSTRUCTIVE SLEEP APNEA (ADULT) (PEDIATRIC); Z99.89 - DEPENDENCE ON OTHER ENABLING MACHINES AND DEVICES SNOMED Code(s): 73182801 Comment: - Continue CPAP (8) HTN (hypertension) Code(s): I10 - ESSENTIAL (PRIMARY) HYPERTENSION SNOMED Code(s): 54725656 Comment: - Normotensive, SBP 100-140's - Continue to monitor blood pressures (9) Hypothyroid Code(s): E03.9 - HYPOTHYROIDISM, UNSPECIFIED SNOMED Code(s): 82203889 Comment: - Continue synthroid (10) DVT prophylaxis Code(s): MYD0389 - SNOMED Code(s): 477885447 Comment: - HSQ (11) Full code status Code(s): Z78.9 - OTHER SPECIFIED HEALTH STATUS SNOMED Code(s): 327725689 Status and Disposition: Inpatient. Discharge to home when medically stable.
--- NOTE | 2017-12-02 12:55 | CONS ---
AMENDED REPORT NOW INCLUDES DATE OF CONSULT - ESIGNED BEFORE ADJUSTMENT CC: [facility], Dr. Blum* CONSULTATION NOTE: DATE OF CONSULT: 12/02/17 HISTORY OF PRESENT ILLNESS: The patient is hospital day 3 status post incision and drainage of large right labial abscess. The patient says she is feeling much better today, ambulating. Her pain is well managed with by mouth pain medication. PHYSICAL EXAM: Vital Signs: Stable. Temp 99.2, she has been afebrile; blood pressure 122/66; pulse of 87. She appears well. She is walking around the room. Abdomen: Obese, soft, nontender. No rebound. Perineal Exam: The right labia is less swollen. Measuring approx 4cm in width at this point. The packing was removed yesterday. There is a small amount of serosanguineous drainage from the right Eleni drain. The surrounding erythema is markedly improved compared to Tuesday. The right labia is still indurated, more so superiorly than inferiorly. The incision sight is open,clean. LABORATORY DATA: Her white blood cell count is now normal at 9.5 compared with 14 when she was admitted. Her glucoses are now in excellent control. She is receiving IV antibiotics. The preliminary wound culture is negative. The preliminary blood cultures are negative. The Gram stain showed multiple organisms. IMPRESSION AND PLAN: The patient is healing well status post right labial incision and drainage of abscess. Eleni drain is in place. Recommend to continue excellent glucose control. The patient can likely be switched to p.o. antibiotics at any point now that she is afebrile and the abscess cavity is drained. If afebrile x 24 hours on po Abx, can be discharged if glucose is in good control. I would recommend removing the Eleni drain, which is sewn in with 1 suture of silk, the day the patient is discharged, if that is between day 5 and 7 postop, if she is discharged before day 5, then the drain could be removed as an outpatient. [id number]/[facility] #: [id number] NUHA
[2017-12-02] MEDS: Cephalexin CAP* 500 MG PO SCH ×3 (13:37→21:40)
[2017-12-02] MEDS: Nystatin OINT* 15 GM TOPICAL SCH ×2 (14:18→21:44)
[2017-12-02] MEDS ORDERED: Insulin REGULAR(*) 1 UNITS UNIT SUBCUT SCH (16:30)
[2017-12-02] MEDS ORDERED: Insulin NPH(*) 1 UNITS UNIT SUBCUT SCH (21:00)
[2017-12-02] MEDS: Insulin NPH(*) 1 UNITS UNIT SUBCUT SCH (21:41)
[2017-12-03] MEDS: Levothyroxine TAB* 150 MCG TAB PO SCH (05:41)
[2017-12-03] MEDS: oxyCODONE TAB* 5 MG TAB PO PRN ×2 (05:41→20:27)
[2017-12-03] MEDS: Heparin VIAL(*) 5000 UNITS/ML VIAL (FIVE THOUSAND) SUBCUT SCH ×3 (05:42→21:18)
[2017-12-03 06:11] LABS: EGFR Non-African American 37.8 (>60)
[2017-12-03] MEDS ORDERED: Vancomycin Trough Check NOTE FOLLOW UP ONE (07:30)
[2017-12-03] MEDS: Nystatin OINT* 15 GM TOPICAL SCH ×3 (08:42→20:33)
[2017-12-03] MEDS: Fluticasone NASAL SPRAY 50MCG* 16 gm SPRAY BTL BOTH NARES SCH (08:42)
[2017-12-03] MEDS: Atorvastatin* 80 MG TAB PO SCH (08:43)
[2017-12-03] MEDS: Cephalexin CAP* 500 MG PO SCH ×3 (08:43→17:25)
[2017-12-03] MEDS: Aspirin 81 mg CHEW TAB* 81 MG TAB.CHEW PO SCH (08:43)
[2017-12-03] MEDS: CMC: Letrozole (NF) 2.5 MG TAB PO SCH (08:43)
[2017-12-03] MEDS: Gabapentin CAP(*) 300 MG PO SCH ×3 (08:43→20:26)
[2017-12-03] MEDS: Sertraline* 50 MG TAB PO SCH ×2 (08:43→20:26)
[2017-12-03] MEDS: Omeprazole CAP* 20 MG PO SCH (08:43)
[2017-12-03] MEDS: Insulin REGULAR(*) 1 UNITS UNIT SUBCUT SCH ×3 (08:43→17:25)
--- NOTE | 2017-12-03 09:58 | PN ---
Progress Note - Progress Note Date of Service: 12/03/17 SOAP: Subjective: [] "I feel much better than when I came in. pt moving well and denies complaits Objective:vitals stable/ afebrile labia inspected and still indurated along incision. sury in place / induration approximately 3cm surrounding incision. non tender to palpation now [] Assessment: []improving labial abscess/ stable Plan: []continue oral antibiotics and sitz baths. discharge per medicine.
[2017-12-03] MEDS: Acetaminophen TAB* 325 MG PO PRN (14:00)
--- NOTE | 2017-12-03 18:16 | PN ---
Subjective Date of Service: 12/03/17 Interval History: Afebrile. No pain. Sury still in place. No overnight events. She has been up and walking. Sugars are controlled. Family History: Unchanged from Admission Social History: Unchanged from Admission Past Medical History: Unchanged from Admission Objective Active Medications: Acetaminophen (Tylenol Tab*) 975 mg PO Q6H PRN PRN Reason: FEVER/PAIN Last Admin: 12/03/17 14:00 Dose: 975 mg Albuterol (Ventolin Hfa Inhaler*) 1 puff INH Q4H PRN PRN Reason: WHEEZING Aspirin (Aspirin 81 Mg Chew Tab*) 81 mg PO DAILY [facility] Last Admin: 12/03/17 08:43 Dose: 81 mg Atorvastatin Calcium (Lipitor*) 80 mg PO DAILY [facility] Last Admin: 12/03/17 08:43 Dose: 80 mg Cephalexin HCl (Keflex Cap*) 500 mg PO QID [facility] Last Admin: 12/03/17 17:25 Dose: 500 mg Cyclobenzaprine HCl (Flexeril Tab*) 10 mg PO TID PRN PRN Reason: SPASMS Device (Nicotine Mouth Piece*) 1 each INH .USE WITH NICOTROL PRN PRN Reason: CRAVING Last Admin: 11/30/17 17:03 Dose: 1 each Device (Nicotine Mouth Piece*) 1 each INH .USE WITH NICOTROL PRN PRN Reason: CRAVING Dextrose (D50w Syringe 50 Ml*) 12.5 gm IV PUSH .FOR FS < 60 - SS PRN PRN Reason: FS < 60 Fluticasone Propionate (Flonase Nasal [place] 50mcg*) 2 spray BOTH NARES DAILY [facility] Last Admin: 12/03/17 08:42 Dose: 2 spray Gabapentin (Neurontin Cap(*)) 300 mg PO TID [facility] Last Admin: 12/03/17 13:56 Dose: 300 mg Heparin Sodium (Porcine) (Heparin Vial(*)) 5,000 units SUBCUT Q8HR [facility] Last Admin: 12/03/17 13:56 Dose: 5,000 units Hydromorphone HCl (Dilaudid Inj1s*) 0.5 mg IV SLOW PU Q4H PRN PRN Reason: PAIN - BREAKTHROUGH Insulin Human NPH (Insulin Nph(*)) 14 units SUBCUT BEDTIME [facility] Last Admin: 12/02/17 21:41 Dose: 14 units Insulin Human Regular (Insulin Regular(*)) 14 units SUBCUT AC [facility] Last Admin: 12/03/17 17:25 Dose: 14 units Letrozole (Femara (Nf)) 2.5 mg PO DAILY [facility]; Protocol Last Admin: 12/03/17 08:43 Dose: 2.5 mg Levothyroxine Sodium (Synthroid Tab*) 150 mcg PO 0600 [facility] Last Admin: 12/03/17 05:41 Dose: 150 mcg Nicotine (Nicotine Inhaler*) 10 mg INH Q2H PRN PRN Reason: CRAVING Last Admin: 11/30/17 17:03 Dose: 10 mg Nystatin (Nystatin Oint*) 1 applic TOPICAL TID [facility] Last Admin: 12/03/17 13:56 Dose: 1 applic Omeprazole (Prilosec Cap*) 20 mg PO DAILY [facility] Last Admin: 12/03/17 08:43 Dose: 20 mg Ondansetron HCl (Zofran Inj*) 4 mg IV Q6H PRN PRN Reason: NAUSEA Oxycodone HCl (Roxycodone Tab*) 5 mg PO Q4H PRN PRN Reason: PAIN Last Admin: 12/03/17 05:41 Dose: 5 mg Sertraline HCl (Zoloft*) 50 mg PO BID [facility] Last Admin: 12/03/17 08:43 Dose: 50 mg Vital Signs - 8 hr 12/03/17 12/03/17 12/03/17 10:13 11:25 13:56 Temperature 98.0 F Pulse Rate 81 Respiratory 18 18 18 Rate Blood Pressure 127/87 (mmHg) O2 Sat by Pulse 95 Oximetry 12/03/17 12/03/17 16:09 17:15 Temperature 98.3 F Pulse Rate 83 Respiratory 18 18 Rate Blood Pressure 123/81 (mmHg) O2 Sat by Pulse 94 Oximetry Oxygen Devices in Use Now: None Appearance: alert, resting in bed comfortably Eyes: No Scleral Icterus Ears/Nose/Mouth/Throat: NL Teeth, Lips, Gums Neck: NL Appearance and Movements; NL JVP Respiratory: Symmetrical Chest Expansion and Respiratory Effort Cardiovascular: NL Sounds; No Murmurs; No JVD, RRR Abdominal: NL Sounds; No Tenderness; No Distention Lymphatic: No Cervical Adenopathy Extremities: No Edema Skin: - - vulvar sury drain in place Neurological: Alert and Oriented x 3 Result Diagrams: 12/02/17 06:13 12/03/17 05:37 Additional Lab and Data: . Microbiology and Other Data: Microbiology 11/29/17 19:50 Anaerobic Culture - Preliminary Wound - Other No Growth Day 1 11/29/17 19:50 Skin and Soft Tissue MRSA/MSSA (PCR - Final Misc Source (See Comment) - Other Mrsa Negative S.aureus Negative Gram Stain - Final Wound Culture - Preliminary No Growth Day 1 Assess/Plan/Problems-Billing Assessment: Ms. Ray is a 47 year old female with PMH significant for uncontrolled DM, morbid obesity, HLD, HTN, and RUSS that presented for wound check in the ER after having I&D of right labia, now found to have worsening abscess and pain, and hyperglycemia, s/p surgical I&D 11/30. - Patient Problems (1) Abscess of right genital labia Current Visit: Yes Status: Acute Code(s): N76.4 - ABSCESS OF VULVA SNOMED Code(s): 588643377 Comment: S/P I&D by gynecological assistant, POD #3 Afebrile and leukocytosis resolved Wound culture growing prevotella and actinomyces; sensitivities pending Blood cultures, no growth Continue sury drain per TIP STRETCHER Remains afebrile on keflex, but both organisms from cultures are anaerobes, so will change to clindamycin for anaerobic coverage (2) RUSS on CPAP Current Visit: Yes Status: Acute Code(s): G47.33 - OBSTRUCTIVE SLEEP APNEA ( ADULT) (PEDIATRIC); Z99.89 - DEPENDENCE ON OTHER ENABLING MACHINES AND DEVICES SNOMED Code(s): 00213244 Comment: Continue CPAP (3) Uncontrolled diabetes mellitus Current Visit: Yes Status: Acute Code(s): E11.65 - TYPE 2 DIABETES MELLITUS WITH HYPERGLYCEMIA SNOMED Code(s): 084062938 Comment: Much improved on insulin regimen of once daily NPH and mealtime regular insulin (4) COPD (chronic obstructive pulmonary disease) Current Visit: No Status: Chronic Code(s): J44.9 - CHRONIC OBSTRUCTIVE PULMONARY DISEASE, UNSPECIFIED SNOMED Code(s): 93003484 Comment: stable (5) Diabetic neuropathy associated with diabetes mellitus due to underlying condition Current Visit: No Status: Chronic Code(s): E08.40 - DIABETES DUE TO UNDERLYING CONDITION W DIABETIC NEUROP, UNSP SNOMED Code(s): 595948898 Comment: Continue gabapentin and supportive care with strict glycemic control Status and Disposition: Inpatient.
[2017-12-03] MEDS: Insulin NPH(*) 1 UNITS UNIT SUBCUT SCH (21:18)
[2017-12-03] MEDS: Clindamycin CAP* 150 MG PO SCH (21:19)
[2017-12-04] MEDS: Heparin VIAL(*) 5000 UNITS/ML VIAL (FIVE THOUSAND) SUBCUT SCH (05:41)
[2017-12-04] MEDS: Levothyroxine TAB* 150 MCG TAB PO SCH (05:43)
[2017-12-04] MEDS: Clindamycin CAP* 150 MG PO SCH (05:43)
[2017-12-04] MEDS: oxyCODONE TAB* 5 MG TAB PO PRN (05:43)
[2017-12-04 05:48] LABS: Hematocrit 35 % (35-47); Hemoglobin 11.8 g/dl (12.0-16.0); Mean Corpuscular HGB Conc 34 g/dl (31-36); Mean Corpuscular Hemoglobin 30 pg (27-31); Mean Corpuscular Volume 88 fL (80-97); Mean Platelet Volume 6.8 um3 (7.4-10.4); Platelet Count 302 10^3/ul (150-450); Red Blood Count 3.94 10^6/ul (4.00-5.40); Red Cell Distribution Width 15 % (10.5-15); White Blood Count 9.7 10^3/ul (3.5-10.8)
[2017-12-04 06:01] LABS: ABS Basophils 0.1 10^3/ul (0-0.2); ABS Eosinophils 0.5 10^3/ul (0-0.6); ABS Lymphocytes 2.1 10^3/ul (1.0-4.8); ABS Monocytes 0.8 10^3/ul (0-0.8); ABS Neutrophils 6.3 10^3/ul (1.5-7.7); ABS Nucleated RBC 0 10^3/ul; Eosinophil % 5.3 % (0-6); Lymphocyte % 21.7 % (25-47); Nucleated Red Blood Cells % 0.1
[2017-12-04 06:08] LABS: EGFR Non-African American 43.1 (>60)
[2017-12-04] MEDS: Acetaminophen TAB* 325 MG PO PRN (07:33)
[2017-12-04 07:39] VITALS: BP 139/89
--- NOTE | 2017-12-04 08:55 | PN ---
Progress Note - Progress Note Date of Service: 12/04/17 SOAP: Subjective: []pt sleeping comfortably. pain is much improved Objective: []vss afebrile vulvar area of incision much improved . sury removed as it is out any way Assessment: [] healing vulvar abscess. Plan: [] discharge per medicine follow up with Dr Blum this week
[2017-12-04] MEDS: Atorvastatin* 80 MG TAB PO SCH (09:02)
[2017-12-04] MEDS: Gabapentin CAP(*) 300 MG PO SCH (09:02)
[2017-12-04] MEDS: Sertraline* 50 MG TAB PO SCH (09:03)
[2017-12-04] MEDS: Fluticasone NASAL SPRAY 50MCG* 16 gm SPRAY BTL BOTH NARES SCH (09:03)
[2017-12-04] MEDS: Nystatin OINT* 15 GM TOPICAL SCH (09:03)
[2017-12-04] MEDS: CMC: Letrozole (NF) 2.5 MG TAB PO SCH (09:03)
[2017-12-04] MEDS: Aspirin 81 mg CHEW TAB* 81 MG TAB.CHEW PO SCH (09:03)
[2017-12-04] MEDS: Omeprazole CAP* 20 MG PO SCH (09:03)
[2017-12-04] MEDS: Insulin REGULAR(*) 1 UNITS UNIT SUBCUT SCH (09:05)
--- NOTE | 2017-12-05 03:22 | DS ---
CC: Dr. Richards; Dr. Lyons; Dr. Blum * DISCHARGE SUMMARY: DATE OF ADMISSION: 11/29/17 DATE OF DISCHARGE: 12/04/17 PRINCIPAL DISCHARGE DIAGNOSES: 1. Right labial abscess. 2. Poorly controlled diabetes. SECONDARY DISCHARGE DIAGNOSES: 1. Obstructive sleep apnea. 2. Hypertension. 3. History of breast cancer status post mastectomy. 4. Hyperlipidemia. HOSPITAL COURSE BY PROBLEM: 1. Right labial abscess. Ms. Ray first noticed a collection on the right labia approximately 1 month prior to presentation. She initially presented to the emergency department on 11/25/17, at which time, the abscess was I and D'd and she was discharged on oral antibiotics. She was instructed to return to the emergency department for wound check in 2 days. She returned for wound check in 4 days at which time, the abscess was noted to have extended and have worsening surrounding cellulitis. At this point, ENCEPHALOGRAPHER was consulted and recommended admission for IV antibiotics and operative treatment of the abscess. She was admitted to the hospitalist service and started on vancomycin and cefepime and was taken to the operating room on 11/30/[address] Blum. A 6 x 5 cm multiloculated abscess was drained under sedation with local anesthesia and her postoperative course was uncomplicated. A Eleni drain was kept in place until 12/04/17 and a Mason catheter was kept in place until . Her wound cultures in the operating room returned with Prevotella species and Actinomyces species. After she remained stable postoperatively, her antibiotics were deescalated to oral antibiotics and when her wound cultures returned with anaerobic organisms, Keflex was switched to clindamycin for better anaerobic coverage. She is being discharged on 12/04/17 with 5 more days of p.o. clindamycin and is instructed to follow up with Dr. Blum within the next 5 days. She had no pain medication requirement at the time of discharge. 2. Poorly controlled diabetes. Clearly, her uncontrolled blood sugars contribute to infection such as this. She was on large doses of Lantus at the time of admission and in the setting of acute infection, her blood sugars were more difficult to control. Dr. Lyons was consulted, who recommended discontinuing Lantus and starting NPH and regular insulin. At the time of discharge, her blood sugars have been quite well controlled on NPH 14 units at night and regular insulin 14 units t.i.d. with meals. She has been given parameters on when to cut that dose in half based on premeal or bedtime sugars. It should be noted that these doses may need to be increased since she has fairly poor p.o. intake during this hospitalization and perioperatively. I have recommended to her that she call Dr. Lyons's office and make a follow up appointment with him. 3. Obstructive sleep apnea on CPAP. She was continued on CPAP during this admission. 4. Hypertension. She was continued on lisinopril. 5. Hypothyroidism. She was continued on her home dose of levothyroxine and this was not adjusted on this admission. PHYSICAL EXAM AT THE TIME OF DISCHARGE: Vital Signs: Temperature 98.0, heart rate 81, respiratory rate 16, pulse ox 92% on room air, blood pressure 139/89. General: Alert, obese, female in no distress, sitting up in the chair, appearing well. HEENT: Pupils equal, round, and reactive to light. Oral mucosa is moist. Neck: No JVP. No cervical adenopathy. Chest: Regular rate and rhythm. No murmurs. PMI nondisplaced. Lungs: Clear bilaterally. Abdomen : Obese, soft, nontender, and nondistended. Perineum, minimal periwound erythema with scant drainage. The Eleni drain has been removed. Acanthosis nigricans is noted on her groin. Extremities: No edema, rashes, or ulcers. DISPOSITION: Ms. Ray is being discharged to home with her partner on . Her new insulin prescriptions have been sent to her pharmacy along with needles and 5 more days of antibiotics. She is instructed to follow up with Dr. Blum, Dr. Lyons, and Dr. Richards and she is to return to the emergency department with fevers, worsening pain, discharge/drainage, chest pain, shortness of breath, or any other new symptoms. Please do not hesitate to contact me with any questions or concerns about Ms. Ray's admission and discharge. [id number]/[facility] #: [id number] MTDD
== END 2017-12-04 12:06 | disposition home or self-care (01) | DRG 518 ==
LOC: ED 11:32 → MED 16:38 → SSU 18:53
PROVIDERS: ADMIT Internal Medicine; ATTEND Internal Medicine
PROC: 0U9M00Z Drainage of Vulva with Drainage Device, Open Approach (ICD-10-PCS; principal; 2017-11-30)
DX: N76.4 Abscess of vulva (principal); Z68.41 Body mass index [BMI] 40.0-44.9, adult; I95.9 Hypotension, unspecified; Z99.81 Dependence on supplemental oxygen; E11.21 Type 2 diabetes mellitus with diabetic nephropathy; E11.40 Type 2 diabetes mellitus with diabetic neuropathy, unspecified; E11.65 Type 2 diabetes mellitus with hyperglycemia; E66.01 Morbid (severe) obesity due to excess calories; J44.9 Chronic obstructive pulmonary disease, unspecified; C50.912 Malignant neoplasm of unspecified site of left female breast; N76.2 Acute vulvitis; G47.33 Obstructive sleep apnea (adult) (pediatric); E03.9 Hypothyroidism, unspecified; M10.9 Gout, unspecified; I10 Essential (primary) hypertension; B96.89 Other specified bacterial agents as the cause of diseases classified elsewhere; Z83.3 Family history of diabetes mellitus; E78.5 Hyperlipidemia, unspecified; F17.210 Nicotine dependence, cigarettes, uncomplicated; Z90.12 Acquired absence of left breast and nipple; Z79.84 Long term (current) use of oral hypoglycemic drugs; Z79.82 Long term (current) use of aspirin; Z79.4 Long term (current) use of insulin; Z79.899 Other long term (current) drug therapy; Z88.5 Allergy status to narcotic agent; Z82.49 Family history of ischemic heart disease and other diseases of the circulatory system; Z80.7 Family history of other malignant neoplasms of lymphoid, hematopoietic and related tissues
CPT/HCPCS: 36415; 74176; 80048; 80053; 80202; 82565; 83036; 83605; 84520; 85025; 86140; 87040; 87070; 87073; 87076; 87185; 87205; 87640; 87641; 93005; 94660; 99284; A9270-GY; J0692; J1170; J1644; J2001; J2250; J2405; J2543; J2765; J3010; J3370; J3490

== ENCOUNTER 2018-01-31 15:33 | Emergency (ER) | payer BC ==
[2018-01-31 16:59] LABS: ABS Basophils 0.1 10^3/ul (0-0.2); ABS Eosinophils 0.2 10^3/ul (0-0.6); ABS Lymphocytes 2.1 10^3/ul (1.0-4.8); ABS Monocytes 0.5 10^3/ul (0-0.8); ABS Neutrophils 4.9 10^3/ul (1.5-7.7); ABS Nucleated RBC 0 10^3/ul; Eosinophil % 2.7 %; Hematocrit 43 % (35-47); Hemoglobin 14.3 g/dl (12.0-16.0); Lymphocyte % 26.5 %; Mean Corpuscular HGB Conc 34 g/dl (31-36); Mean Corpuscular Hemoglobin 30 pg (27-31); Mean Corpuscular Volume 88 fL (80-97); Mean Platelet Volume 7.5 fL (7.4-10.4); Nucleated Red Blood Cells % 0.1; Platelet Count 247 10^3/ul (150-450); Red Blood Count 4.81 10^6/ul (4.00-5.40); Red Cell Distribution Width 15 % (10.5-15); White Blood Count 7.8 10^3/ul (3.5-10.8)
[2018-01-31 17:07] LABS: EGFR Non-African American 31.6 (>60)
[2018-01-31] MEDS ORDERED: Insulin REGULAR(*) 1 UNITS UNIT ONE (17:49)
--- NOTE | 2018-01-31 17:49 | ED ---
HPI Diabetic - HPI Summary HPI Summary: The pt is a 47 y/o female with type II DM requiring insulin who is presenting to [facility] with c/o hyperglycemia, worsened today. As per nurses notes a fasting blood glucose from a blood draw this am indicated BG levels of greater than 600 mg/dL. She returned home and took her regular 14 units of insulin before eating then came to the ED at the direction of Dr. Richards for further evaluation. Her fingerstick glucose at triage was 299 mg/dL. She is accompanied by her male SO. The pt waited in the WR and wanted to leave without being seen. The triage nurse brought me to evaluate pt and pt agreed to stay for further evaluation and treatment, but she stated, "no matter what", she "will not be admitted." Pt' s SO explains that pt was given a new insulin regimen for three times a day by Dr. Richards and that she hadn't really understood it, and so she had not been giving her insulin properly, but now they understood it, and were ready to do it properly. Home Medications Medication Instructions Recorded Confirmed Type Albuterol HFA INHALER* [Ventolin 1 puff INH Q4H PRN 11/25/17 11/29/17 History HFA Inhaler*] Aspirin 81 mg CHEW TAB* 81 mg PO DAILY 11/25/17 11/29/17 History Atorvastatin* [Lipitor 80 MG*] 80 mg PO DAILY 11/25/17 11/29/17 History Cholecalciferol (Vitamin D3) 2,000 unit PO DAILY 11/25/17 11/29/17 History [Vitamin D3] Clindamycin Cap(NF) [Clindamycin 300 mg PO TID #29 cap 11/25/17 11/29/17 Rx Cap 300 mg Cap(NF)] Cyclobenzaprine TAB* [Flexeril 10 10 mg PO TID PRN 11/25/17 11/29/17 History MG TAB*] Dulaglutide (NF) [Trulicity (NF)] 1.5 mg SUBCUT Q7D 11/25/17 11/29/17 History Gabapentin CAP(*) [Neurontin 300 300 mg PO TID 11/25/17 11/29/17 History CAP(*)] Levothyroxine TAB* [Synthroid 150 150 mcg PO DAILY 11/25/17 11/29/17 History MCG TAB*] Lisinopril [Lisinopril 2.5 MG-] 7.5 mg PO DAILY 11/25/17 11/29/17 History Pantoprazole TAB (NF) [Protonix 40 mg PO DAILY 11/25/17 11/29/17 History TAB (NF)] Polyvinyl Alcohol/Povidone/Pf 1 each BOTH EYES DAILY 11/25/17 11/29/17 History [Refresh Classic Eye Drops] Fluticasone NASAL SPRAY 50MCG* 2 spray BOTH NARES DAILY 11/29/17 11/29/17 History [Flonase NASAL SPRAY 50MCG*] Letrozole 2.5 mg PO DAILY 11/29/17 11/29/17 History Sertraline* [Zoloft*] 50 mg PO BID 11/29/17 11/29/17 History Clindamycin Cap(NF) [Clindamycin 300 mg PO TID #15 cap 12/04/17 Rx Cap 300 mg Cap(NF)] Insulin NPH(*) 14 units SUBCUT BEDTIME #1 vial 12/04/17 Rx Insulin REGULAR(*) 14 units SUBCUT AC #1 vial 12/04/17 Rx - History Of Current Complaint Chief Complaint: EDDiabeticProb Time Seen by Provider: 01/31/18 17:46 Hx Obtained From: Patient, Family/Log Peeler - male SO Hx Last Menstrual Period: None reported Onset/Duration: Sudden Onset, Still Present Timing: Constant Severity Initially: Severe Severity Currently: Moderate Character: Other - asymptomatic Aggravating: Nothing Alleviating: Nothing Associated Signs & Symptoms: Negative Related History: DM II, Insulin Requiring, Other - CKD - Allergies/Home Medications Allergies/Adverse Reactions: Allergies Allergy/AdvReac Type Severity Reaction Status Date / Time morphine Allergy Itching Verified 11/29/17 11:37 PMH/Surg Hx/FS Hx/Imm Hx Previously Healthy: No Endocrine/Hematology History: Reports: Hx Diabetes - insulin requiring type II, Hx Thyroid Disease Denies: Hx Anticoagulant Therapy Cardiovascular History: Reports: Hx Hypercholesterolemia, Hx Hypertension Respiratory History: Reports: Hx Asthma, Hx Chronic Obstructive Pulmonary Disease (COPD), Hx Sleep Apnea History: Reports: 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 they never go away Psychiatric History: Reports: Hx Depression - Cancer History Cancer Type, Location and Year: breast Hx Chemotherapy: No Hx Radiation Therapy: No - Surgical History Surgery Procedure, Year, and Place: skin graft, c-sec, left mastectomy, Hx Anesthesia Reactions: No Infectious Disease History: No Infectious Disease History: Denies: Traveled Outside the [place] in Last 30 Days - Family History Known Family History: Positive: Other Family History: Mother - [place]. - Social History Occupation: Unemployed Lives: With Family - Male significant other Alcohol Use: None Hx Substance Use: No Substance Use Type: Reports: None Hx Tobacco Use: Yes Smoking Status (MU): Heavy Every Day Tobacco Smoker Type: Cigarettes Length of Time of Smoking/Using Tobacco: 13 years Have You Smoked in the Last Year: Yes Review of Systems Constitutional: Other - Positive: Hyperglycemia Eyes: Negative Negative: Chest Pain Negative: Cough Negative: Vomiting, Nausea Positive: no symptoms reported Musculoskeletal: Negative Skin: Negative Neurological: Negative Psychological: Normal All Other Systems Reviewed And Are Negative: Yes Physical Exam - Summary Physical Exam Summary: Appearance: Well-appearing, no pain distress, well-nourished Skin: Warm, color reflects adequate perfusion, dry Head: Normal Head/Face inspection, atraumatic Eyes: Conjunctiva clear ENT: Normal inspection Neck: Supple, no nodes, no JVD Respiratory: Lungs clear, normal breath sounds, no respiratory distress Cardio: RRR, No murmur, pulses normal, brisk capillary refill Chest: s/p left mastectomy Abdomen: Soft, nontender Bowel sounds: Present Musculoskeletal: Strength Intact/ROM intact, no calf tenderness, no edema. Psychological: Normal Neuro: Alert, muscle tone normal, no focal deficit Triage Information Reviewed: Yes Vital Signs On Initial Exam: Initial Vitals Temp Pulse Resp BP Pulse Ox 97.5 F 94 18 150/88 93 01/31/18 15:37 01/31/18 15:37 01/31/18 15:37 01/31/18 15:37 01/31/18 15:37 Vital Signs Reviewed: Yes Diagnostics - Vital Signs Vital Signs Temp Pulse Resp BP Pulse Ox 01/31/18 17:16 97.6 F 83 16 113/72 97 01/31/18 15:37 97.5 F 94 18 150/88 93 - Laboratory Lab Results: Lab Results 01/31/18 01/31/18 01/31/18 Range/Units 15:43 16:36 16:36 WBC 7.8 (3.5-10.8) 10^3/ul RBC 4.81 (4.00-5.40) 10^6/ul Hgb 14.3 (12.0-16.0) g/dl Hct 43 (35-47) % MCV 88 (80-97) fL MCH 30 (27-31) pg MCHC 34 (31-36) g/dl RDW 15 (10.5-15) % Plt Count 247 (150-450) 10^3/ul MPV 7.5 (7.4-10.4) fL Neut % (Auto) 63.2 % Lymph % (Auto) 26.5 % [place] % (Auto) 6.7 % Eos % (Auto) 2.7 % Baso % (Auto) 0.9 % Absolute Neuts (auto) 4.9 (1.5-7.7) 10^3/ul Absolute Lymphs (auto) 2.1 (1.0-4.8) 10^3/ul Absolute Monos (auto) 0.5 (0-0.8) 10^3/ul Absolute Eos (auto) 0.2 (0-0.6) 10^3/ul Absolute Basos (auto) 0.1 (0-0.2) 10^3/ul Absolute Nucleated RBC 0 10^3/ul Nucleated RBC % 0.1 VBG pH (7.33-7.43) VBG pCO2 (41-51) mmHg VBG pO2 (35-45) mmHg VBG HCO3 (24-28) mmol/L VBG O2 Saturation (70-80) % VBG Base Excess (0-4) Sodium 127 L (135-145) mmol/L Potassium 4.6 (3.5-5.0) mmol/L Chloride 97 L (101-111) mmol/L Carbon Dioxide 22 (22-32) mmol/L Anion Gap 8 (2-11) mmol/L BUN 41 H (6-24) mg/dL Creatinine 1.73 H (0.51-0.95) mg/dL Est GFR ( Amer) 38.2 (>60) Est GFR (Non-Af Amer) 31.6 (>60) BUN/Creatinine Ratio 23.7 H (8-20) Glucose 393 H (70-100) mg/dL POC Glucose (mg/dL) 389 H (70-100) mg/dL Lactic Acid (0.5-2.0) mmol/L Calcium 9.1 (8.6-10.3) mg/dL Total Bilirubin 0.30 (0.2-1.0) mg/dL AST 18 (13-39) U/L ALT 27 (7-52) U/L Alkaline Phosphatase 103 (34-104) U/L C-Reactive Protein 7.94 (<8.01) mg/L Total Protein 7.0 (6.4-8.9) g/dL Albumin 3.5 (3.2-5.2) g/dL Globulin 3.5 (2-4) g/dL Albumin/Globulin Ratio 1.0 (1-3) 01/31/18 01/31/18 Range/Units 16:36 16:36 WBC (3.5-10.8) 10^3/ul RBC (4.00-5.40) 10^6/ul Hgb (12.0-16.0) g/dl Hct (35-47) % MCV (80-97) fL MCH (27-31) pg MCHC (31-36) g/dl RDW (10.5-15) % Plt Count (150-450) 10^3/ul MPV (7.4-10.4) fL Neut % (Auto) % Lymph % (Auto) % [place] % (Auto) % Eos % (Auto) % Baso % (Auto) % Absolute Neuts (auto) (1.5-7.7) 10^3/ul Absolute Lymphs (auto) (1.0-4.8) 10^3/ul Absolute Monos (auto) (0-0.8) 10^3/ul Absolute Eos (auto) (0-0.6) 10^3/ul Absolute Basos (auto) (0-0.2) 10^3/ul Absolute Nucleated RBC 10^3/ul Nucleated RBC % VBG pH 7.35 (7.33-7.43) VBG pCO2 43 (41-51) mmHg VBG pO2 19 L (35-45) mmHg VBG HCO3 21.6 L (24-28) mmol/L VBG O2 Saturation 41.3 L (70-80) % VBG Base Excess -2.0 L (0-4) Sodium (135-145) mmol/L Potassium (3.5-5.0) mmol/L Chloride (101-111) mmol/L Carbon Dioxide (22-32) mmol/L Anion Gap (2-11) mmol/L BUN (6-24) mg/dL Creatinine (0.51-0.95) mg/dL Est GFR ( Amer) (>60) Est GFR (Non-Af Amer) (>60) BUN/Creatinine Ratio (8-20) Glucose (70-100) mg/dL POC Glucose (mg/dL) (70-100) mg/dL Lactic Acid 1.2 (0.5-2.0) mmol/L Calcium (8.6-10.3) mg/dL Total Bilirubin (0.2-1.0) mg/dL AST (13-39) U/L ALT (7-52) U/L Alkaline Phosphatase (34-104) U/L C-Reactive Protein (<8.01) mg/L Total Protein (6.4-8.9) g/dL Albumin (3.2-5.2) g/dL Globulin (2-4) g/dL Albumin/Globulin Ratio (1-3) Result Diagrams: 01/31/18 16:36 01/31/18 16:36 Lab Statement: Any lab studies that have been ordered have been reviewed, and results considered in the medical decision making process. Re-Evaluation - Re-Evaluation First Eval Re-Evaluation Time: 19:20 Change: Improved Comment: Fluids infusing. No cough, no CP, no N, V, no urinary sxs. Feels well. Wants to go home. Ate sandwich. Second Eval Re-Evaluation Time: 20:15 Change: Worse Comment: repeat glucose after 2 liters NS and 10 U reg insulin subQ was 354 by FS. Pt had eaten. Pt feels well, states she does not want to be admitted, will refuse admission, but states she will start to follow the insulin regimen 3 times a day as recommended by Dr. Richards. Additional 10 U regular insulin sub Q given now and will discharge. Male SO is with pt. Education about end stage complications of uncontrolled DM given. Pt is tearful. States she wants to be compliant. Diabetic Course/Dx - Course Course Of Treatment: A 47 year-old diabetic F presents to the ED with a CC of hyperglycemia reaching as high as 600 mg/dL on fasting blood draw ordered by Dr. Richards, worsened today. Pt is asymptomatic with the hyperglycemia. A physical exam revealed no pain distress and no acute abnormalities. Labs indicate hyperglycemia and CKD, stage III, unchanged,possible UTI and hyponatremia which corrects to 131 based on the hyperglycemia. In the ED course , pt was given regular insulin 10 units subQ x 2 and NS 0.9 % 2000 ml IV which improved the hyperglycemia. Pt was not acidemic. Patient will be discharged with a final Dx of uncontrolled diabetes mellitus, type II, CKD stage III, hyponatremia and hypertension in poor control, tobacco abuse disorder. Pt is agreeable with this plan. Allergies noted. - Diagnoses Differential Dx: Diabetic Ketoacidosis, Hyperglycemia, Hyperosmolar State Provider Diagnoses: DM (diabetes mellitus), type 2, uncontrolled, with renal complications, CKD ( chronic kidney disease) stage 3, GFR 30-59 ml/min, Hypertension, poor control, Hyponatremia, Tobacco abuse disorder Discharge - Sign-Out/Discharge Documenting (check all that apply): Patient Departure - home - Discharge Plan Condition: Stable Disposition: HOME Patient Education Materials: Basic Carbohydrate Counting (DC), Diabetic Kidney Disease (ED) Referrals: Tiffany Richards MD [Primary Care Provider] - Additional Instructions: Follow up with Dr. Maurice Allen MD in 2 days. Follow the insulin schedule that Dr. Richards prescribed for you, starting tomorrow morning. If your glucose meter reads "high" you need to call Dr. Richards, or come to the ER. You might have a urinary tract infection. We will notify you if you need further treatment based on those results. Return to ED for any new or worsening symptoms. - Billing Disposition and Condition Condition: STABLE Disposition: Home - Attestation Statements Document Initiated by Scribe: Yes Documenting Scribe: Marjorie Novak Provider For Whom Scribe is Documenting (Include Credential): Dr. Pina Lopez MD Scribe Attestation: Marjorie Arrington, scribed for Dr. Pina Lopez MD on 02/06/18 at 0000. Scribe Documentation Reviewed: Yes Provider Attestation: The documentation as recorded by the Marjorie piper accurately reflects the service I personally performed and the decisions made by , Dr. Pina Lopez MD Status of Scribe Document: Viewed
[2018-01-31] MEDS: Insulin REGULAR(*) 1 UNITS UNIT SUBCUT ONE ×2 (17:52→20:12)
[2018-01-31] MEDS ORDERED: NS 0.9% 1000 ML* 2,000 ML IV SCH (18:30)
[2018-01-31 19:56] LABS: Urine Appearance Cloudy; Urine Blood Negative (Negative); Urine Color Yellow; Urine Ketones Negative (Negative); Urine Protein 2+(100 mg/dL) (Negative); Urine Red Blood Cell Absent (Absent); Urine Urobilinogen Negative (Negative); Urine White Blood Cell 3+(>20/hpf) (Absent)
[2018-01-31 20:41] VITALS: BP 132/83
[2018-01-31] MEDS ORDERED: Insulin ASPART (NF) 100 UNIT/ML VIAL SUBCUT SCH (21:00)
== END 2018-01-31 20:40 | disposition home or self-care (01) ==
LOC: ED 15:33
DX: E11.65 Type 2 diabetes mellitus with hyperglycemia (principal); E11.22 Type 2 diabetes mellitus with diabetic chronic kidney disease; N18.3 Chronic kidney disease, stage 3 (moderate); Z79.4 Long term (current) use of insulin; E78.00 Pure hypercholesterolemia, unspecified; I10 Essential (primary) hypertension; F32.9 Major depressive disorder, single episode, unspecified; Z88.5 Allergy status to narcotic agent; F17.210 Nicotine dependence, cigarettes, uncomplicated
CPT/HCPCS: 36415; 80053; 81003; 81015; 82803; 83605; 85025; 86140; 87086; 96360; 96372; 99284

== ENCOUNTER 2018-07-14 21:01 | Inpatient (IN) | payer BC, MEDICAID ==
[2018-07-14] MEDS ORDERED: NS 0.9% 1000 ML** 2,000 ML IV ONE (21:31)
[2018-07-14] MEDS ORDERED: Meclizine TAB* 12.5 MG PO ONE (21:33)
[2018-07-14] MEDS ORDERED: Ondansetron INJ* 2 MG/ML VIAL IV ONE (21:33)
[2018-07-14] MEDS ORDERED: Albuterol/Ipratropium NEB.SOL* Albuterol 2.5 MG/Ipratropium 0.5 MG 3 ML INH ONE (21:33)
[2018-07-14] MEDS ORDERED: Ketorolac INJ* 30 MG/ML 1 ML VIAL IV PUSH ONE (21:34)
--- NOTE | 2018-07-14 21:39 | ED ---
GI/ HPI - HPI Summary HPI Summary: 48-year-old female presents with generalized abdominal pain for the past 3 weeks. States every time she eats something she has worsening bowel pain. She admits to nausea and vomiting. No diarrhea or constipation. she states has not been able to eat anything in weeks. She states that she has intermittent dizziness when she moves her head. admits to some dizziness when looks down and then looks up quickly. denies any headaches. she has never had this abdominal pain before. She denies any fevers. No chest pain or shortness of breath. has a chronic cough that is unchanged. She has a history of COPD. She states her sugars have been in the 300-500s and takes two times of insulin per patient. She denies any urinary symptoms. She states that pain radiates to her back and flanks. Denies any numbness or tingling into her legs. no loss of bowel or bladder or saddle anaesthesia. has a history of appendectomy and hysterectomy. - History of Current Complaint Chief Complaint: EDAbdPain Time Seen by Provider: 07/14/18 21:16 Stated Complaint: PAIN IN LEGS AND BACK PER PT Hx Last Menstrual Period: None reported Pain Intensity: 8 - Additional Pertinent History Primary Care Physician: [id number] - Allergy/Home Medications Allergies/Adverse Reactions: Allergies Allergy/AdvReac Type Severity Reaction Status Date / Time morphine Allergy Itching Verified 11/29/17 11:37 Home Medications: Home Medications Fluoxetine HCl 40 mg PO DAILY 07/15/18 [History Confirmed 07/15/18] Tiotropium CAP.INH* [Spiriva CAP.INH*] 1 cap INH DAILY 07/15/18 [History Confirmed 07/15/18] PMH/Surg Hx/FS Hx/Imm Hx Endocrine/Hematology History: Reports: Hx Diabetes - insulin requiring type II, Hx Thyroid Disease Denies: Hx Anticoagulant Therapy Cardiovascular History: Reports: Hx Hypercholesterolemia, Hx Hypertension Respiratory History: Reports: Hx Asthma, Hx Chronic Obstructive Pulmonary Disease (COPD), Hx Sleep Apnea History: Reports: 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 they never go away Psychiatric History: Reports: Hx Depression - Cancer History Cancer Type, Location and Year: breast Hx Chemotherapy: No Hx Radiation Therapy: No - Surgical History Surgery Procedure, Year, and Place: skin graft, c-sec, left mastectomy, Hx Anesthesia Reactions: No Infectious Disease History: No Infectious Disease History: Denies: Traveled Outside the [place] in Last 30 Days - Family History Known Family History: Positive: Other Family History: Mother - [place]. - Social History Alcohol Use: None Hx Substance Use: No Substance Use Type: Reports: None Hx Tobacco Use: Yes Smoking Status (MU): Heavy Every Day Tobacco Smoker Type: Cigarettes Length of Time of Smoking/Using Tobacco: 13 years Have You Smoked in the Last Year: Yes Review of Systems Negative: Fever Negative: Chest Pain Negative: Shortness Of Breath, Cough Positive: Abdominal Pain, Vomiting, Nausea. Negative: Diarrhea Neurological: Other - vertigo All Other Systems Reviewed And Are Negative: Yes Physical Exam Triage Information Reviewed: Yes Vital Signs On Initial Exam: Initial Vitals Temp Pulse Resp BP Pulse Ox 97.2 F 111 16 125/85 96 07/14/18 21:05 07/14/18 21:05 07/14/18 21:05 07/14/18 21:05 07/14/18 21:05 Vital Signs Reviewed: Yes Appearance: Positive: Well-Appearing Skin: Positive: Warm, Dry Head/Face: Positive: Normal Head/Face Inspection Eyes: Positive: Normal, EOMI, JESUS, Conjunctiva Clear ENT: Positive: Normal ENT inspection, Pharynx normal, TMs normal Respiratory/Lung Sounds: Positive: Decreased Breath Sounds, Wheezes Cardiovascular: Positive: Normal, RRR Abdomen Description: Positive: Soft, CVA Tenderness (R), CVA Tenderness (L), Other: - diffuse abd tenderness Bowel Sounds: Positive: Present Musculoskeletal: Positive: Normal, Strength/ROM Intact - back, Other - neg SLR Neurological: Positive: Sensory/Motor Intact, Alert, Oriented to Person Place, Time, CN Intact II-III Psychiatric: Positive: Normal Diagnostics - Vital Signs Vital Signs Temp Pulse Resp BP Pulse Ox 07/14/18 21:05 97.2 F 111 16 125/85 96 - Laboratory Result Diagrams: 07/14/18 21:39 07/14/18 21:39 Lab Statement: Any lab studies that have been ordered have been reviewed, and results considered in the medical decision making process. - Radiology chest Radiology Interpretation Completed By: ED Physician Summary of Radiographic Findings: no pneumonia - CT abd CT Interpretation Completed By: Radiologist Summary of CT Findings: IMPRESSION: 1. A punctate nonobstructing left renal stone. No hydronephrosis. 2. Left perinephric stranding which is non-specific however could be seen in. pyelonephritis. 3. A small hiatal hernia. 4. Colonic diverticulosis with no evidence of acute diverticulitis. 5. Hepatosplenomegaly. - EKG No standard instances Cardiac Rate: Tachycardia EKG Rhythm: Sinus Tachycardia EKG Comparison: No Significant Change Summary of EKG Findings: sinus tachycardia Re-Evaluation - Re-Evaluation First Eval Re-Evaluation Time: 11:45 Change: Improved Comment: pain improved, vertigo improved with meclizine and fluids Second Eval Comment: discussed in dka will need to start insulin Third Eval Re-Evaluation Time: 00:40 Comment: discussed has a uti so will start antibiotics GIGU Course/Dx - Course Course Of Treatment: 48-year-old female presents with abdominal pain for the past 3 weeks. She admits to nausea vomiting. No fevers. Does have flank pain. Denies any chest pain shortness breath. Does have a chronic cough with history of COPD. States she does have some dizziness when she moves her head quickly. On exam has diffuse abdominal tenderness. Positive CVA tenderness. Normal neuro exam. has wheezing noted on exam and gave breathing treatment and wheezing resolved. wbc 15. sodium 126. potassium 5.3. has anion gap. bun 70 and cr 2.38 which is more elevated than previous. glucose is 369. crp elevated. abg shows has dka. discussed with dr oconnell and said to add an insulin drip at 4 units per hour on top of fluids 2 liters already given. urine shows uti so will cover with rocephin. CT shows pyelo. discussed case with dr gutierrez who agrees to admit. - Diagnoses Differential Diagnoses - Female: Pyelonephritis, Urinary Tract Infection, Other - dka Provider Diagnoses: COPD (chronic obstructive pulmonary disease), Pyelonephritis, DKA (diabetic ketoacidoses), Chronic kidney disease - Critical Care Time Critical Care Time: 30-74 min - 60 mins Discharge - Sign-Out/Discharge Documenting (check all that apply): Patient Departure - Discharge Plan Condition: Stable Disposition: ADMITTED TO [facility] - Billing Disposition and Condition Condition: STABLE Disposition: Admitted to [facility]
[2018-07-14 21:46] LABS: Hematocrit 39 % (35-47); Hemoglobin 13.1 g/dL (12.0-16.0); Mean Corpuscular HGB Conc 33 g/dL (31-36); Mean Corpuscular Hemoglobin 30 pg (27-31); Mean Corpuscular Volume 89 fL (80-97); Mean Platelet Volume 7.5 fL (7.4-10.4); Platelet Count 486 10^3/uL (150-450); Red Blood Count 4.44 10^6 /uL (3.70-4.87); Red Cell Distribution Width 16 % (10.5-15); White Blood Count 15.2 10^3/uL (3.5-10.8)
[2018-07-14 22:02] LABS: Albumin 3.1 g/dL (3.2-5.2); Albumin/Globulin Ratio 0.6 (1-3); BUN/Creatinine Ratio 29.4 (8-20); C Reactive Protein 200.45 mg/L (<8.01); Calcium 9.3 mg/dL (8.6-10.3); EGFR African American 26.3 (>60); EGFR Non-African American 21.8 (>60); Globulin 5.6 g/dL (2-4); Potassium 5.3 mmol/L (3.5-5.0); Total Bilirubin 0.2 mg/dL (0.2-1.0); Total Protein 8.7 g/dL (6.4-8.9)
[2018-07-14 22:04] LABS: Troponin I 0.02 ng/mL (<0.04)
[2018-07-14 22:08] LABS: HCG Pregnancy 1.84 mIU/mL
[2018-07-14 22:17] LABS: ABS Basophils 0.1 10^3/ul (0-0.2); ABS Eosinophils 0.1 10^3/ul (0-0.6); ABS Lymphocytes 2.8 10^3/ul (1.0-4.8); ABS Monocytes 0.8 10^3/ul (0-0.8); ABS Neutrophils 11.4 10^3/ul (1.5-7.7); Eosinophil % 0.8 %; Lymphocyte % 18.3 %
[2018-07-14] MEDS ORDERED: Insulin IVPB 100 units/100 ml 100 UNITS/100 ML UNIT IVPB ONE (23:14)
[2018-07-15] MEDS ORDERED: Insulin IVPB 100 units/100 ml 100 UNITS/100 ML UNIT IVPB ONE (00:01)
[2018-07-15 00:09] LABS: Urine Appearance Cloudy; Urine Bacteria 3+ (Absent); Urine Bilirubin Negative (Negative); Urine Blood 2+ (Negative); Urine Color Yellow; Urine Glucose 1+(50 mg/dL) (Negative); Urine Ketones Negative (Negative); Urine Nitrite Negative (Negative); Urine Protein 2+(100 mg/dL) (Negative); Urine Red Blood Cell 3+(>10/hpf) (Absent); Urine Specific Gravity 1.017 (1.010-1.030); Urine Squamous Epithelial Cell Present (Absent); Urine Urobilinogen Negative (Negative); Urine White Blood Cell 3+(>20/hpf) (Absent)
[2018-07-15] MEDS ORDERED: cefTRIAXone(*) 1 GM in NS 0.9% 50 ML* 50 ML IVPB ONE (00:18)
[2018-07-15] MEDS ORDERED: Insulin IVPB 100 units/100 ml 100 UNITS/100 ML UNIT IVPB SCH ×3 (01:00→02:00)
[2018-07-15 01:07] LABS: Magnesium 1.9 mg/dL (1.9-2.7); Phosphorus 5.9 mg/dL (2.5-5.0)
[2018-07-15] MEDS ORDERED: Cyclobenzaprine TAB* 10 MG PO PRN (01:28)
[2018-07-15] MEDS ORDERED: Albuterol HFA INHALER* 8 gm MDI INH PRN (01:28)
[2018-07-15] MEDS ORDERED: Magnesium Sulfate 1 GM IV* 1 GM/100 ML BAG IV ONE (01:32)
[2018-07-15] MEDS ORDERED: Magnesium CITRATE* 300 ML BTL PO ONE (01:43)
[2018-07-15] MEDS ORDERED: NS 0.9% 1000 ML** 1,000 ML IV SCH ×2 (02:15→13:00)
[2018-07-15 02:54] LABS: BUN/Creatinine Ratio 30.5 (8-20); Calcium 8.2 mg/dL (8.6-10.3); EGFR African American 30.4 (>60); EGFR Non-African American 25.1 (>60); Potassium 4.8 mmol/L (3.5-5.0)
[2018-07-15] MEDS ORDERED: D5W 1/2 NS 1000 ML BAG* 1,000 ML IV SCH (03:00)
[2018-07-15] MEDS ORDERED: D5NS 0.9% 1000 ML BAG* 1,000 ML IV SCH (03:05)
[2018-07-15] MEDS ORDERED: Sodium Bicarbonate (ANTACID)* 650 MG TAB PO SCH (04:00)
--- NOTE | 2018-07-15 05:33 | HP ---
HISTORY AND PHYSICAL: DATE OF ADMISSION: 07/15/18 ADMITTING PROVIDER: Gorge Moran MD. PRIMARY CARE PROVIDER: Tiffany Richards MD. CHIEF COMPLAINT: Abdominal and flank pain, fever, generalized weakness, loss of appetite, constipation, dizziness, fall. HISTORY OF PRESENT ILLNESS: Sharon Ray is a 48-year-old female with past medical history of poorly controlled insulin-dependent diabetes mellitus, COPD, current smoker, hypertension, left breast cancer, status post mastectomy, hypothyroidism, gout, CKD stage 3B. For the last approximately 3 weeks, she has been much weaker. Every time she eats, she has felt sick to her stomach, so for the first 2 weeks her food intake has been minimal. She has been feeling dizzy, and 3 days prior to admission, fell into her console, has felt unstable on her feet. Her blood sugars have been running even higher than normal, was 399 fasting this a.m. and usually have been either 400s or undetectable ( greater than 500). She often suffers from constipation. Her gave her 16 tablets of his senna about 1 month ago and she had a good bowel movement at the time. She had just 1 bowel movement since that was about 2 weeks ago. Those were hard stools. She developed worsening of pain in her suprapubic area , generalized pain in her abdomen and in her left flank and lower back and decided to present for further evaluation. Upon initial evaluation in the ED, she had a leukocytosis of 15.2, elevated creatinine of 2.38 (1.7 prior), blood glucose of 369, elevated anion gap of 14, metabolic acidosis with bicarb 14, hyperkalemic with potassium of 5.3, CRP 200, and normal lactic acid 0.6. Urinalysis was significant for 3+ bacteria, 2+ leukocyte esterase, 3+ wbc's, 2+ protein, no ketones. She had a CT abdomen and pelvis without contrast, which demonstrated evidence of left perinephric stranding consistent with potential pyelonephritis; a nonobstructing left renal stone; and diverticulosis. She was tachycardic with heart rates initially 98, max 103, meeting severe sepsis criteria (given ZELDA, source, tachycardia, leukocytosis and fevers at home). She was referred to hospitalist service for pyelonephritis, severe sepsis, and mild DKA. In the emergency room, she was given ceftriaxone and she was started on an insulin drip (without bolus). Repeat blood sugars have been 340 and 306 respectively. She is a poor historian of her medications particularly her insulin dosing, she says she takes 36 units b.i.d. of NPH, either 14 or 15 of short-acting at meals, and then separate Humalog of 30 units in the mid afternoon between meals. She dose not remember her last A1C (was 11.3% Nov 2017 ) PAST MEDICAL HISTORY: COPD, insulin-dependent diabetes mellitus, hypertension, left breast cancer, status post mastectomy. Obstructive sleep apnea (she was noncompliant with her CPAP circa 2014 or 2015 and so Geo took the machine back). Chronic nocturnal hypoxic respiratory failure on 2 L nocturnally, CKD stage IIIB, gout, hypothyroidism, chronic constipation. PAST SURGICAL HISTORY: , skin graft, tubal ligation, left mastectomy. MEDICATIONS: Include: 1. Spiriva 1 capsule inhaled daily. 2. Fluoxetine 40 mg daily. 3. Atorvastatin 80 mg daily. 4. Aspirin 81 mg daily. 5. Albuterol HFA 1 puff inhaled q.4 hours p.r.n. 6. Flonase 2 sprays both nares daily. 7. Flexeril 10 mg p.o. t.i.d. p.r.n. 8. Cholecalciferol 2000 units p.o. daily. 9. Levothyroxine 150 mcg p.o. daily. 10. Letrozole 2.5 mg p.o. daily. 11. Regular insulin 14 or 15 units subcutaneous q.a.c. 12. NPH 36 units b.i.d. 13. Humalog 30U mid afternoon 14. Gabapentin 300 mg p.o. t.i.d. 15. Sertraline 50 mg p.o. b.i.d. 16. Refresh classic eye drops 1 each eye daily. 17. Protonix 40 mg p.o. daily. 18. Lisinopril 7.5 mg daily. ALLERGIES: Morphine (sweating and hives). FAMILY HISTORY: Father of heart attack at age 48. Mother of lymphoma in her 40s. Brother and sister both have diabetes mellitus. SOCIAL HISTORY: The patient is a current smoker, 1 pack per day currently, smoked for the last 15 years. Denies alcohol use. She recently started smoking marijuana over the last several weeks to try to relieve her abdominal pain (has been effective while it lasts). She is on disability. She is accompanied at bedside by her fiance Joe Akhtar Jr. She desires to be a full code. REVIEW OF SYSTEMS: A complete 14-point review of systems negative except as per HPI. She denies any orthopnea or diarrhea. She denies any increased frequency of urination or dysuria. PHYSICAL EXAMINATION GENERAL APPEARANCE: In no acute distress. VITAL SIGNS: Temperature 98.6; heart rate max of 103, initially 98; respiratory rate between 16 and 23, satting 93 to 98% on room air; blood pressure 122/82. HEENT: Normocephalic, atraumatic. Pupils are equal, round, and reactive to light. Extraocular motions intact. No scleral icterus. Moist mucous membranes. Neck: Supple. CARDIOVASCULAR: Regular rate and rhythm. No murmurs, rubs, or gallops. LUNGS: Clear to auscultation bilaterally. No wheezing, rales, or rhonchi. ABDOMEN: Obese, slightly tender diffusely. No rebound, no guarding. No Bourgeois sign. EXTREMITIES: Warm, well perfused. No peripheral edema. BACK: CVA tenderness bilaterally, worse on the left. SKIN: No lesions. No rashes. NEURO: Moving all extremities. Cranial nerves II through XII grossly intact. DIAGNOSTIC STUDIES/LAB DATA: White count 15.2, hemoglobin 13.1, platelets 46. ABG, pH 7.31, pCO2 24, pO2 89, bicarb 15.2. Sodium 126, potassium 5.3, chloride 99, carbon dioxide 14, anion gap 13, BUN 17, creatinine 2.38, glucose 369, lactic acid 0.6, phosphorus 5.9, magnesium 1.9, total bili is 0.2, AST 15, ALT 21, alk phos 268, troponin 0.02. CRP 200, albumin 3.1, lipase 21, beta hCG 1.84. Urinalysis: 2+ proteins, negative ketones, 2+ blood, negative nitrites, 2 + leukocyte esterase, 3+ wbc's, 3+ rbc's, 3+ bacteria, 1+ glucose. Chest x-ray formal read pending, but no acute process per my read. CT abdomen, pelvis without contrast demonstrate: 1. A punctate nonobstructing left renal stone. No hydronephrosis. 2. Left perinephric stranding, which is nonspecific; however, it could be seen in pyelonephrosis. 3. A small hiatal hernia. 4. Colonic diverticulosis with no evidence of acute diverticulitis. 5. Hepatosplenomegaly. EKG demonstrated sinus tachycardia, rate 100 with evidence of old infarction with Q waves in 2, 3, aVF. No ST elevations or depressions. ASSESSMENT AND PLAN: Sharon Ray is a 48-year-old female with past medical history of insulin-dependent diabetes mellitus; chronic obstructive pulmonary disease; current smoker; hypertension; breast cancer; obstructive sleep apnea, noncompliant with CPAP; hypothyroidism; gout; chronic kidney disease, stage 3; presenting with 3 weeks of worsening p.o. intake, dizziness, progressive abdominal pain, now left flank pain, intermittent fevers, chills. She has evidence of some mild diabetic ketoacidosis with elevated anion gap and significant metabolic acidosis with bicarb 14, but of note no ketones in her urine. She meets severe sepsis (by sepsis 2 criteria) with acute kidney injury on top of her chronic kidney disease with a creatinine of 2.38 from last 1.7. She also has evidence of a urinary tract infection and pyelonephritis. She has leukocytosis and tachycardia (reported fever at home as high as 101 two days prior to admission when she measured - afebrile here now). She has costovertebral angle tenderness consistent with pyelonephritis. Continue her ceftriaxone. She is without lactic acidosis. She is status post 2 L normal saline bolus in the emergency room. We will continue fluid hydration, normal saline at 125 cc/hour. Once her blood glucose falls below 250, switch her to D5 normal saline given her hyponatremia of 130 corrected for elevated glucose. Check her sugars every 1 hour, put her on 0.1 unit/kg insulin initially. Was started on 4 units/hr insulin in the ED without bolus. Magnesium level will be checked along with BMP every 4 hours. Expect her potassium to decrease being total body depleted most likely but does not need supplemental potassium at this time. Check TSH in AM given hyponatremia, obesity, chronic constipation. Adding on hemoglobin A1c For her acute kidney injury, we will continue IV fluids. No evidence of obstruction or hydronephrosis. She does have an nonobstructing left kidney stone, which may be contributing to some of her symptoms. Start Flomax 0.4 mg daily. She is normotensive. We will hold her lisinopril 7.5 mg in the setting of her acute kidney injury. Continue her inhalers for her COPD. Gave her a nicotine patch. She is a poor historian of her medications. She should probably follow up with an battery assembler dry cell as an outpatient - likely has worse control in the setting of infection w/ pyelonephritis. For constipation, which seems to be chronic but not addressed as she has never taken anything except for one time dose of 16 tabs of senna given to her by her fiance (who had taken a similar dose for his colonoscopy prep. I am starting her on Colace, docusate, and giving her 1 time of mag citrate now. Continue her pain meds for gout, Flexeril, gabapentin, may reduce the dose of the gabapentin given her worsening kidney function. She is a full code, n.p.o. for now and then heart healthy, carbohydrate consistent when able to resume diet. Medical surrogate is her carolee Akhtar Jr. She has been admitted to observation status. [id number]/[facility] #: [id number] [facility]
[2018-07-15 06:16] LABS: Hematocrit 34 % (35-47); Hemoglobin 11.3 g/dL (12.0-16.0); Mean Corpuscular HGB Conc 33 g/dL (31-36); Mean Corpuscular Hemoglobin 29 pg (27-31); Mean Corpuscular Volume 89 fL (80-97); Mean Platelet Volume 7.4 fL (7.4-10.4); Platelet Count 410 10^3/uL (150-450); Red Blood Count 3.85 10^6 /uL (3.70-4.87); Red Cell Distribution Width 16 % (10.5-15)
[2018-07-15 06:34] LABS: BUN/Creatinine Ratio 29.6 (8-20); Calcium 8.2 mg/dL (8.6-10.3); EGFR African American 31.6 (>60); EGFR Non-African American 26.1 (>60); Magnesium 2.4 mg/dL (1.9-2.7); Potassium 4.5 mmol/L (3.5-5.0)
[2018-07-15] MEDS: Levothyroxine TAB* 150 MCG TAB PO SCH (06:42)
[2018-07-15] MEDS ORDERED: Dextrose 50% Syringe 50 ML* 25 GM/50 ML SYRINGE IV PUSH PRN (06:53)
[2018-07-15 07:01] LABS: ABS Eosinophils 0.3 10^3/ul (0-0.6); ABS Neutrophils 10.6 10^3/ul (1.5-7.7)
[2018-07-15] MEDS ORDERED: Sodium Bicarbonate 8.4% IV* 75 MEQ in NS 0.45% 1000 ML BAG* 1,000 ML IV SCH (07:30)
[2018-07-15] MEDS: Insulin LISPRO* 1 UNITS UNIT SUBCUT SCH ×4 (07:33→22:48)
[2018-07-15] MEDS ORDERED: Insulin NPH(*) 1 UNITS UNIT SUBCUT SCH (08:00)
[2018-07-15] MEDS: Gabapentin CAP(*) 100 MG PO SCH ×2 (08:43→20:38)
[2018-07-15] MEDS: Tamsulosin CAP* 0.4 MG PO SCH (08:43)
[2018-07-15] MEDS: Atorvastatin* 80 MG TAB PO SCH (08:43)
[2018-07-15] MEDS: FLUoxetine CAP* 20 MG PO SCH (08:43)
[2018-07-15] MEDS: Docusate CAP* 100 MG PO SCH ×2 (08:43→20:38)
[2018-07-15] MEDS: Pantoprazole TAB * 40 MG TAB PO SCH (08:43)
[2018-07-15] MEDS: Sertraline* 50 MG TAB PO SCH ×2 (08:43→20:38)
[2018-07-15] MEDS: Aspirin 81 mg CHEW TAB* 81 MG TAB.CHEW PO SCH (08:43)
[2018-07-15] MEDS: Polyethylene Glycol 3350* 17 GM PACKET PO SCH (08:43)
[2018-07-15] MEDS: Fluticasone NASAL SPRAY 50MCG* 16 gm SPRAY BTL BOTH NARES SCH (11:35)
[2018-07-15] MEDS: CMCS: Letrozole (NF) 2.5 MG TAB PO SCH (11:35)
[2018-07-15] MEDS: Nicotine PATCH 14 MG/24 HR* PATCH TRANSDERM SCH (11:36)
[2018-07-15 12:12] LABS: BUN/Creatinine Ratio 30.5 (8-20); Blood Urea Nitrogen 58 mg/dL (6-24); CO2 Carbon Dioxide 15 mmol/L (22-32); Calcium 8.4 mg/dL (8.6-10.3); Chloride 107 mmol/L (101-111); EGFR African American 34.1 (>60); EGFR Non-African American 28.2 (>60); Glucose 348 mg/dL (70-100); Sodium 132 mmol/L (135-145)
[2018-07-15] MEDS: Tiotropium CAP.INH* CAP.INH/18 MCG (USE ORDER SET !) INH SCH (12:20)
[2018-07-15 13:19] LABS: Anion Gap 10 mmol/L (2-11)
--- NOTE | 2018-07-15 16:03 | PN ---
Subjective Date of Service: 07/15/18 Interval History: Pt more awake.Reports improvement in abdominal pain Objective Active Medications: Albuterol (Ventolin Hfa Inhaler*) 1 puff INH Q4H PRN PRN Reason: WHEEZING Last Admin: 07/15/18 11:36 Dose: 1 puff Aspirin (Aspirin 81 Mg Chew Tab*) 81 mg PO DAILY [facility] Last Admin: 07/15/18 08:43 Dose: 81 mg Atorvastatin Calcium (Lipitor*) 80 mg PO DAILY [facility] Last Admin: 07/15/18 08:43 Dose: 80 mg Cyclobenzaprine HCl (Flexeril Tab*) 10 mg PO TID PRN PRN Reason: SPASMS Dextrose (D50w Syringe 50 Ml*) 12.5 gm IV PUSH .FOR FS < 60 - SS PRN PRN Reason: FS < 60 Docusate Sodium (Colace Cap*) 100 mg PO BID [facility] Last Admin: 07/15/18 08:43 Dose: 100 mg Fluoxetine HCl (Prozac Cap*) 40 mg PO DAILY [facility] Last Admin: 07/15/18 08:43 Dose: 40 mg Fluticasone Propionate (Flonase Nasal [place] 50mcg*) 2 spray BOTH NARES DAILY [facility] Last Admin: 07/15/18 11:35 Dose: 2 spray Gabapentin (Neurontin Cap(*)) 200 mg PO BID [facility] Last Admin: 07/15/18 08:43 Dose: 200 mg Insulin Human Regular (Insulin Regular Iv Drip 1 Unit/Ml) 100 units in 100 mls @ 10.886 mls/hr IVPB .(INITIAL RATE) [facility]; Protocol Ceftriaxone Sodium 1 gm/ (Sodium Chloride) 50 mls @ 200 mls/hr IVPB Q24H [facility] Sodium Chloride (Ns 0.9% 1000 Ml) 1,000 mls @ 75 mls/hr IV PER RATE [facility] Stop: 07/16/18 02:19 Last Admin: 07/15/18 15:11 Dose: 75 mls/hr Insulin Human Lispro (Humalog*) 0 units SUBCUT ACHS [facility]; Protocol Last Admin: 07/15/18 11:34 Dose: 15 units Insulin Human NPH (Insulin Nph(*)) 40 units SUBCUT 0800,1700 [facility] Letrozole (Femara (Nf)) 2.5 mg PO DAILY [facility]; Protocol Last Admin: 07/15/18 11:35 Dose: 2.5 mg Levothyroxine Sodium (Synthroid Tab*) 150 mcg PO DAILY@0600 [facility] Last Admin: 07/15/18 06:42 Dose: 150 mcg Nicotine (Nicotine Patch 14 Mg/24 Hr*) 1 patch TRANSDERM DAILY [facility] Last Admin: 07/15/18 11:36 Dose: 1 patch Pantoprazole Sodium (Protonix Tab*) 40 mg PO DAILY [facility] Last Admin: 07/15/18 08:43 Dose: 40 mg Pharmacy Profile Note (Nicotine Patch Removal Note*) 1 note FOLLOW UP 2100 [facility] Polyethylene Glycol/Electrolytes (Miralax*) 17 gm PO DAILY [facility] Last Admin: 07/15/18 08:43 Dose: 17 gm Sertraline HCl (Zoloft*) 50 mg PO BID [facility] Last Admin: 07/15/18 08:43 Dose: 50 mg Tamsulosin HCl (Flomax Cap*) 0.4 mg PO DAILY [facility] Last Admin: 07/15/18 08:43 Dose: 0.4 mg Tiotropium [place] (Spiriva Cap.Inh*) 1 cap INH DAILY [facility] Last Admin: 07/15/18 12:20 Dose: 1 cap Vital Signs - 8 hr 07/15/18 07/15/18 07/15/18 08:00 08:01 09:00 Temperature 96.3 F Pulse Rate 83 85 87 Respiratory 18 22 18 Rate Blood Pressure 121/82 119/84 (mmHg) O2 Sat by Pulse 93 91 94 Oximetry 07/15/18 07/15/18 07/15/18 09:01 10:00 10:15 Temperature Pulse Rate 88 97 Respiratory 20 19 20 Rate Blood Pressure (mmHg) O2 Sat by Pulse 94 93 Oximetry 07/15/18 07/15/18 07/15/18 11:00 12:00 12:50 Temperature 97.4 F Pulse Rate 92 91 93 Respiratory 20 22 23 Rate Blood Pressure 135/90 (mmHg) O2 Sat by Pulse 92 95 95 Oximetry 07/15/18 07/15/18 07/15/18 13:00 14:00 15:00 Temperature Pulse Rate 90 102 95 Respiratory 23 26 23 Rate Blood Pressure 118/92 113/82 118/80 (mmHg) O2 Sat by Pulse 93 92 91 Oximetry 07/15/18 15:02 Temperature Pulse Rate 95 Respiratory 23 Rate Blood Pressure (mmHg) O2 Sat by Pulse 92 Oximetry Oxygen Devices in Use Now: None Eyes: No Scleral Icterus Ears/Nose/Mouth/Throat: NL Teeth, Lips, Gums Neck: NL Appearance and Movements; NL JVP Respiratory: Symmetrical Chest Expansion and Respiratory Effort, Clear to Auscultation Cardiovascular: NL Sounds; No Murmurs; No JVD, RRR Abdominal: NL Sounds; No Tenderness; No Distention Extremities: No Edema Neurological: Alert and Oriented x 3 Result Diagrams: 07/15/18 06:00 07/15/18 11:37 Microbiology and Other Data: Microbiology 07/15/18 00:48 Anaerobic Blood Culture - Preliminary Blood Venous 07/15/18 01:50 Nasal Screen MRSA (PCR) - Final Nasal Mrsa Not Detected Assess/Plan/Problems-Billing Assessment: - Patient Problems (1) Pyelonephritis Current Visit: Yes Status: Acute Code(s): N12 - TUBULO-INTERSTITIAL NEPHRITIS, NOT SPCF ACUTE OR CHRONIC SNOMED Code(s): 91601482 Comment: Continue Ceftriaxone Urine cx pending Perinephriric stranding on CT, UA pos, clinical symptoms (2) Sepsis Current Visit: Yes Status: Acute Comment: Sepsis sec to Pyelo/urinary source Continue Ceftriaxone Blood cx Gram neg rods IVF (3) DKA (diabetic ketoacidoses) Current Visit: Yes Status: Acute Code(s): E11.10 - TYPE 2 DIABETES MELLITUS WITH KETOACIDOSIS WITHOUT COMA SNOMED Code(s): 300078571 Comment: On insulin drip Given NPH and weaned off drip Gap closed Uncontrolled DM and home readings in 300s per pt Will increase her NPH to 40 units BID, takes 36 units bid at home on Sliding Scale coverage (4) Hyponatremia Current Visit: Yes Status: Acute Code(s): E87.1 - HYPO-OSMOLALITY AND HYPONATREMIA SNOMED Code(s): 05537661 Comment: Component of pseudohyponatremia Improving (5) Metabolic acidosis Current Visit: Yes Status: Acute Code(s): E87.2 - ACIDOSIS SNOMED Code(s) : 03617598 Comment: Sec DKA and Sepsis Anion Gap closed Will follow
[2018-07-15] MEDS: Insulin NPH(*) 1 UNITS UNIT SUBCUT SCH (16:51)
[2018-07-15] MEDS: Acetaminophen TAB* 325 MG PO PRN (20:38)
[2018-07-15] MEDS: Nicotine Patch Removal NOTE FOLLOW UP SCH (21:00)
[2018-07-15] MEDS: cefTRIAXone(*) 1 GM in NS 0.9% 50 ML* 50 ML IVPB SCH (22:49)
[2018-07-16] MEDS: Levothyroxine TAB* 150 MCG TAB PO SCH (05:58)
[2018-07-16 06:36] LABS: Hematocrit 34 % (35-47); Hemoglobin 11.4 g/dL (12.0-16.0); Mean Corpuscular HGB Conc 33 g/dL (31-36); Mean Corpuscular Hemoglobin 30 pg (27-31); Mean Corpuscular Volume 90 fL (80-97); Mean Platelet Volume 7.2 fL (7.4-10.4); Platelet Count 412 10^3/uL (150-450); Red Blood Count 3.83 10^6 /uL (3.70-4.87); Red Cell Distribution Width 16 % (10.5-15); White Blood Count 10.3 10^3/uL (3.5-10.8)
[2018-07-16 07:02] LABS: BUN/Creatinine Ratio 27.6 (8-20); Calcium 8.5 mg/dL (8.6-10.3); EGFR African American 38.8 (>60); EGFR Non-African American 32.1 (>60)
[2018-07-16 07:07] LABS: Potassium 5.4 mmol/L (3.5-5.0)
[2018-07-16] MEDS: Tiotropium CAP.INH* CAP.INH/18 MCG (USE ORDER SET !) INH SCH (07:12)
[2018-07-16 07:15] LABS: ABS Eosinophils 0.1 10^3/ul (0-0.6); ABS Neutrophils 7.4 10^3/ul (1.5-7.7)
[2018-07-16] MEDS: Polyethylene Glycol 3350* 17 GM PACKET PO SCH (08:47)
[2018-07-16] MEDS: Acetaminophen TAB* 325 MG PO PRN (08:48)
[2018-07-16] MEDS: CMCS: Letrozole (NF) 2.5 MG TAB PO SCH (08:48)
[2018-07-16] MEDS: FLUoxetine CAP* 20 MG PO SCH (08:49)
[2018-07-16] MEDS: Pantoprazole TAB * 40 MG TAB PO SCH (08:49)
[2018-07-16] MEDS: Gabapentin CAP(*) 100 MG PO SCH ×2 (08:49→20:57)
[2018-07-16] MEDS: Docusate CAP* 100 MG PO SCH ×2 (08:49→20:57)
[2018-07-16] MEDS: Atorvastatin* 80 MG TAB PO SCH (08:49)
[2018-07-16] MEDS: Nicotine PATCH 14 MG/24 HR* PATCH TRANSDERM SCH (08:50)
[2018-07-16] MEDS: Sertraline* 50 MG TAB PO SCH ×2 (08:50→20:57)
[2018-07-16] MEDS: Aspirin 81 mg CHEW TAB* 81 MG TAB.CHEW PO SCH (08:50)
[2018-07-16] MEDS: Tamsulosin CAP* 0.4 MG PO SCH (08:50)
[2018-07-16] MEDS: Insulin NPH(*) 1 UNITS UNIT SUBCUT SCH ×2 (08:52→17:21)
[2018-07-16] MEDS: Insulin LISPRO* 1 UNITS UNIT SUBCUT SCH ×4 (08:52→20:58)
[2018-07-16] MEDS: Fluticasone NASAL SPRAY 50MCG* 16 gm SPRAY BTL BOTH NARES SCH (08:52)
[2018-07-16] MEDS ORDERED: Patiromer POWDER* 8.4 GM PAK PO ONE (11:24)
[2018-07-16] MEDS: Sodium Bicarbonate (ANTACID)* 650 MG TAB PO SCH ×2 (12:35→20:56)
--- NOTE | 2018-07-16 14:30 | PN ---
Subjective Date of Service: 07/16/18 Interval History: Pt sig improved.Was lethargic yesterday.Alert oriented good apetitite.Tolerating food.Reports feeling a lot better Objective Active Medications: Acetaminophen (Tylenol Tab*) 650 mg PO Q6H PRN PRN Reason: HEADACHE/PAIN Last Admin: 07/16/18 08:48 Dose: 650 mg Albuterol (Ventolin Hfa Inhaler*) 1 puff INH Q4H PRN PRN Reason: WHEEZING Last Admin: 07/15/18 11:36 Dose: 1 puff Aspirin (Aspirin 81 Mg Chew Tab*) 81 mg PO DAILY [facility] Last Admin: 07/16/18 08:50 Dose: 81 mg Atorvastatin Calcium (Lipitor*) 80 mg PO DAILY [facility] Last Admin: 07/16/18 08:49 Dose: 80 mg Cyclobenzaprine HCl (Flexeril Tab*) 10 mg PO TID PRN PRN Reason: SPASMS Last Admin: 07/15/18 18:49 Dose: 10 mg Dextrose (D50w Syringe 50 Ml*) 12.5 gm IV PUSH .FOR FS < 60 - SS PRN PRN Reason: FS < 60 Docusate Sodium (Colace Cap*) 100 mg PO BID [facility] Last Admin: 07/16/18 08:49 Dose: 100 mg Fluoxetine HCl (Prozac Cap*) 40 mg PO DAILY [facility] Last Admin: 07/16/18 08:49 Dose: 40 mg Fluticasone Propionate (Flonase Nasal [place] 50mcg*) 2 spray BOTH NARES DAILY [facility] Last Admin: 07/16/18 08:52 Dose: 2 spray Gabapentin (Neurontin Cap(*)) 200 mg PO BID [facility] Last Admin: 07/16/18 08:49 Dose: 200 mg Insulin Human Regular (Insulin Regular Iv Drip 1 Unit/Ml) 100 units in 100 mls @ 10.886 mls/hr IVPB .(INITIAL RATE) [facility]; Protocol Ceftriaxone Sodium 1 gm/ (Sodium Chloride) 50 mls @ 200 mls/hr IVPB Q24H [facility] Last Admin: 07/15/18 22:49 Dose: 200 mls/hr Insulin Human Lispro (Humalog*) 0 units SUBCUT ACHS [facility]; Protocol Last Admin: 07/16/18 12:38 Dose: 9 units Insulin Human NPH (Insulin Nph(*)) 40 units SUBCUT 0800,1700 [facility] Last Admin: 07/16/18 08:52 Dose: 40 unit Letrozole (Femara (Nf)) 2.5 mg PO DAILY [facility]; Protocol Last Admin: 07/16/18 08:48 Dose: 2.5 mg Levothyroxine Sodium (Synthroid Tab*) 150 mcg PO DAILY@0600 [facility] Last Admin: 07/16/18 05:58 Dose: 150 mcg Nicotine (Nicotine Patch 14 Mg/24 Hr*) 1 patch TRANSDERM DAILY [facility] Last Admin: 07/16/18 08:50 Dose: 1 patch Pantoprazole Sodium (Protonix Tab*) 40 mg PO DAILY [facility] Last Admin: 07/16/18 08:49 Dose: 40 mg Pharmacy Profile Note (Nicotine Patch Removal Note*) 1 note FOLLOW UP 2100 [facility] Last Admin: 07/15/18 21:00 Dose: 1 note Polyethylene Glycol/Electrolytes (Miralax*) 17 gm PO DAILY [facility] Last Admin: 07/16/18 08:47 Dose: 17 gm Sertraline HCl (Zoloft*) 50 mg PO BID [facility] Last Admin: 07/16/18 08:50 Dose: 50 mg Sodium Bicarbonate (Sodium Bicarbonate (Antacid)*) 1,300 mg PO Q8H [facility] Last Admin: 07/16/18 12:35 Dose: 1,300 mg Tamsulosin HCl (Flomax Cap*) 0.4 mg PO DAILY [facility] Last Admin: 07/16/18 08:50 Dose: 0.4 mg Tiotropium [place] (Spiriva Cap.Inh*) 1 cap INH DAILY [facility] Last Admin: 07/16/18 07:12 Dose: 1 cap Vital Signs - 8 hr 07/16/18 07/16/18 07/16/18 08:30 08:49 08:58 Temperature 98.6 F Pulse Rate 91 Respiratory 20 18 20 Rate Blood Pressure 127/74 (mmHg) O2 Sat by Pulse 92 Oximetry Oxygen Devices in Use Now: None Eyes: No Scleral Icterus Ears/Nose/Mouth/Throat: NL Teeth, Lips, Gums Neck: NL Appearance and Movements; NL JVP Respiratory: Symmetrical Chest Expansion and Respiratory Effort, Clear to Auscultation Cardiovascular: NL Sounds; No Murmurs; No JVD Abdominal: NL Sounds; No Tenderness; No Distention Extremities: No Edema Neurological: Alert and Oriented x 3 Result Diagrams: 07/16/18 06:16 07/16/18 06:16 Microbiology and Other Data: Microbiology 07/15/18 00:48 Anaerobic Blood Culture - Preliminary Blood Venous 07/15/18 01:50 Nasal Screen MRSA (PCR) - Final Nasal Mrsa Not Detected Assess/Plan/Problems-Billing Assessment: - Patient Problems (1) Pyelonephritis Current Visit: Yes Status: Acute Code(s): N12 - TUBULO-INTERSTITIAL NEPHRITIS, NOT SPCF ACUTE OR CHRONIC SNOMED Code(s): 64069589 Comment: Continue Ceftriaxone Urine cx pending Perinephriric stranding on CT, UA pos, clinical symptoms Improved (2) Sepsis Current Visit: Yes Status: Acute Comment: Sepsis sec to Pyelo/urinary source Continue Ceftriaxone Blood cx Gram neg rods (3) DKA (diabetic ketoacidoses) Current Visit: Yes Status: Acute Code(s): E11.10 - TYPE 2 DIABETES MELLITUS WITH KETOACIDOSIS WITHOUT COMA SNOMED Code(s): 128810858 Comment: Was On insulin drip Given NPH and weaned off drip Gap closed Uncontrolled DM and home readings in 300s per pt Increased her NPH to 40 units BID, takes 36 units bid at home on Sliding Scale coverage (4) Hyponatremia Current Visit: Yes Status: Acute Code(s): E87.1 - HYPO-OSMOLALITY AND HYPONATREMIA SNOMED Code(s): 60175642 Comment: Component of pseudohyponatremia Improving (5) Metabolic acidosis Current Visit: Yes Status: Acute Code(s): E87.2 - ACIDOSIS SNOMED Code(s) : 76634449 Comment: Sec DKA and Sepsis Anion Gap closed Will follow (6) Hyperkalemia Current Visit: Yes Status: Acute Code(s): E87.5 - HYPERKALEMIA SNOMED Code (s): 30671639 Comment: Can also be elevated in the setting of metabolic acidosis and cellular shift Also in seting of hyperglycemia 1 dose veltessa Status and Disposition: Multifactorial in setting of sepsis, dka Bicarb low despite gap closing Had vomitting, ?diarrhea feeling poorly Will add PO bicarb to supplement losses If persistent acidosis, can consider w/u for RTA and other etiology
[2018-07-16] MEDS: Nicotine Patch Removal NOTE FOLLOW UP SCH (21:04)
[2018-07-16] MEDS: cefTRIAXone(*) 1 GM in NS 0.9% 50 ML* 50 ML IVPB SCH (21:47)
[2018-07-17] MEDS: Levothyroxine TAB* 150 MCG TAB PO SCH (05:09)
[2018-07-17] MEDS: Sodium Bicarbonate (ANTACID)* 650 MG TAB PO SCH ×2 (05:10→12:25)
[2018-07-17] MEDS: Tiotropium CAP.INH* CAP.INH/18 MCG (USE ORDER SET !) INH SCH (08:00)
[2018-07-17 08:11] LABS: Hematocrit 32 % (35-47); Hemoglobin 10.8 g/dL (12.0-16.0); Mean Corpuscular HGB Conc 34 g/dL (31-36); Mean Corpuscular Hemoglobin 30 pg (27-31); Mean Corpuscular Volume 88 fL (80-97); Mean Platelet Volume 7.2 fL (7.4-10.4); Platelet Count 435 10^3/uL (150-450); Red Blood Count 3.59 10^6 /uL (3.70-4.87); Red Cell Distribution Width 16 % (10.5-15); White Blood Count 10.6 10^3/uL (3.5-10.8)
[2018-07-17 08:16] LABS: BUN/Creatinine Ratio 24.1 (8-20); Calcium 8.6 mg/dL (8.6-10.3); EGFR African American 37.8 (>60); EGFR Non-African American 31.2 (>60); Magnesium 1.7 mg/dL (1.9-2.7)
[2018-07-17 08:40] LABS: Potassium 5.2 mmol/L (3.5-5.0)
[2018-07-17] MEDS ORDERED: Magnesium Sulfate 2 GM IV* 2 GM/50 ML BAG IVPB ONE (08:46)
[2018-07-17] MEDS: Fluticasone NASAL SPRAY 50MCG* 16 gm SPRAY BTL BOTH NARES SCH (08:48)
[2018-07-17] MEDS: Nicotine PATCH 14 MG/24 HR* PATCH TRANSDERM SCH (08:48)
[2018-07-17] MEDS: Polyethylene Glycol 3350* 17 GM PACKET PO SCH (08:50)
[2018-07-17] MEDS: CMCS: Letrozole (NF) 2.5 MG TAB PO SCH (08:52)
[2018-07-17] MEDS: Sertraline* 50 MG TAB PO SCH (08:52)
[2018-07-17] MEDS: Docusate CAP* 100 MG PO SCH (08:53)
[2018-07-17] MEDS: Gabapentin CAP(*) 100 MG PO SCH (08:53)
[2018-07-17] MEDS: Tamsulosin CAP* 0.4 MG PO SCH (08:53)
[2018-07-17] MEDS: Aspirin 81 mg CHEW TAB* 81 MG TAB.CHEW PO SCH (08:53)
[2018-07-17] MEDS: Atorvastatin* 80 MG TAB PO SCH (08:53)
[2018-07-17] MEDS: Pantoprazole TAB * 40 MG TAB PO SCH (08:53)
[2018-07-17] MEDS: FLUoxetine CAP* 20 MG PO SCH (08:53)
[2018-07-17] MEDS: Insulin NPH(*) 1 UNITS UNIT SUBCUT SCH ×2 (08:54→17:02)
[2018-07-17] MEDS: Insulin LISPRO* 1 UNITS UNIT SUBCUT SCH ×3 (08:54→17:02)
[2018-07-17 08:55] LABS: ABS Eosinophils 0.1 10^3/ul (0-0.6); ABS Neutrophils 7.4 10^3/ul (1.5-7.7); ABS Neutrophils 7.7 10^3/ul (1.5-7.7)
[2018-07-17] MEDS ORDERED: Patiromer POWDER* 8.4 GM PAK PO SCH (09:00)
[2018-07-17] MEDS ORDERED: Magnesium Oxide TAB* 400 MG PO SCH (09:00)
[2018-07-17 11:17] VITALS: BP 111/74
[2018-07-17] MEDS: Acetaminophen TAB* 325 MG PO PRN (15:46)
--- NOTE | 2018-07-17 23:09 | DS ---
CC: Dr. Richards; Dr. Lehman * DISCHARGE SUMMARY: DATE OF ADMISSION: 07/15/18 DATE OF DISCHARGE: To home, 07/17/18 PRIMARY CARE PROVIDER: Dr. Richards. CONDITION AT DISCHARGE: Stable. DISCHARGE DIAGNOSES: 1. Sepsis due to Escherichia coli bacteremia secondary to left pyelonephritis. 2. Diabetic ketoacidosis. 3. Renal tubular acidosis, type 4. SECONDARY DIAGNOSES: 1. Chronic obstructive pulmonary disease. 2. Insulin-dependent diabetes. 3. Hypertension. 4. History of left breast cancer. 5. Chronic kidney disease, stage 3. 6. Obstructive sleep apnea. 7. Hypothyroidism. 8. Chronic hypoxemic respiratory failure, on oxygen at night. 9. Status post left mastectomy. MEDICATIONS AT DISCHARGE: Include: 1. Cefdinir 300 mg p.o. b.i.d. for a total of 11 days then stop. 2. Albuterol inhaler 1 puff on a p.r.n. basis. 3. Aspirin 81 mg daily. 4. Lipitor 80 mg daily. 5. Vitamin D3 2000 units daily. 6. Flexeril 10 mg t.i.d. p.r.n. 7. Fluoxetine 40 mg daily. 8. Flonase nasal spray 2 sprays both nostrils daily. 9. Gabapentin 300 mg 3 times a day. 10. Letrozole 2.5 mg daily. 11. Synthroid 150 mcg daily. 12. Protonix 40 mg daily. 13. Refresh eyedrops 1 drop both eyes daily p.r.n. 14. Zoloft 50 mg b.i.d. 15. Spiriva inhalation daily. 16. Insulin NPH was increased to 40 units b.i.d. 17. Insulin regular 40 units with each meal 3 times a day. 18. The patient was also placed on sodium bicarbonate 1300 mg b.i.d. for a total of 10 days. The patient was instructed to have blood work drawn for basic metabolic panel. Phosphorus and magnesium to be performed tomorrow. FOLLOWUP APPOINTMENTS: The patient is scheduled with Dr. Lehman on 07/19/18 at 10:30 a.m. The patient is also asked to follow up with her primary care provider in 4 to 7 days for posthospital followup. LABORATORY DATA AND STUDIES PERFORMED DURING THE HOSPITAL STAY: On 07/17/18, sodium of 133, potassium of 5.2, chloride of 108, carbon dioxide 16, BUN 42, creatinine 1.74. Liver function tests were obtained at admission and were unremarkable apart from alkaline phosphatase of 268. Magnesium was 1.7 on the day of discharge. On 07/17/18, white blood cell count of 10.6, hemoglobin of 10.4, hematocrit of 32, and platelets of 435. Please note that the patient's drop in hemoglobin during the hospital stay was likely dilutional and she was asymptomatic from bleeding standpoint. Microbiology test showing blood cultures positive for E. coli and urine culture is positive for E. coli. Abdomen and pelvis CT obtained on the day of admission, impression: "A punctate nonobstructing left renal stone. No hydronephrosis. Left perinephric stranding, which is nonspecific; however could be seen in pyelonephritis. A small hiatal hernia. Colon diverticulosis without evidence of acute diverticulitis, hepatosplenomegaly." HOSPITALIZATION COURSE: Sharon Ray is a 48-year-old female with a history of chronic kidney disease, stage 3; diabetes, insulin dependent; obesity as well as nocturnal hypoxemia for which she uses oxygen at night, who presented to the hospital on 07/15/18 with complaints of left flank pain, generalized weakness. The patient was diagnosed with DKA and treated with insulin drip in the intensive care unit. Over the course of her hospital stay, she was noted to have sepsis due to E. coli bacteremia due to left pyelonephritis that was treated with ceftriaxone during the hospital stay with good results. The patient's blood glucose normalized and her sepsis resolved. By the time of discharge, she was noted to have mild hyperkalemia and metabolic acidosis , likely renal tubular acidosis, type 4, for which she was treated with sodium bicarbonate and patiromer. On the day of discharge, the patient's potassium is coming down to 5.2 and her bicarb is increasing; today it is at 16. The patient 's creatinine is back to her baseline at 1.74 today. The patient's lisinopril was held due to hyperkalemia. She is going to be discharged today to follow up with her primary care provider in 4 to [address] Lehman in a couple of days with a repeat blood work as mentioned above. PHYSICAL EXAM AT TIME OF DISCHARGE: Blood pressure of 111/74, oxygen saturation 93% on room air, respiratory rate 20, heart rate of 91, temperature of 98.7. General: The patient is a pleasant 48-year-old obese female with a BMI of 40, who is in no acute distress, alert and oriented x3. HEENT: Head: Atraumatic, normocephalic. Eyes: Pupils are equal, reactive to light and accommodation. Oropharynx is clear. Mucosa moist. Neck: Supple. No JVD. No bruits bilaterally. Cardiovascular: Regular rate and rhythm. No murmurs. Respiratory: Fine crackles in bilateral bases, otherwise clear. Abdomen: Soft , nontender. Bowel sounds are present in all 4 quadrants. There is no flank tenderness on evaluation. Extremities: There is no edema. Pulses +2 bilaterally. No clubbing or cyanosis. On neuro evaluation, speech clear, cranial nerves II through XII grossly intact. Motor strength is 5/5 bilaterally. Please note that this is a short summary of the patient's hospital stay. Please refer to further medical records for details. TIME SPENT: Approximately 45 minutes was spent on the patient's discharge. [id number]/[facility] #: [id number] NUHA
== END 2018-07-17 18:25 | disposition home or self-care (01) | DRG 720 ==
LOC: ED 21:01 → ICU 07-15 00:48 → OBSVTOIN 07-15 07:51 → MED 07-15 17:36
PROVIDERS: ADMIT Internal Medicine; ATTEND Internal Medicine
DX: A41.51 Sepsis due to Escherichia coli [E. coli] (principal); E11.10 Type 2 diabetes mellitus with ketoacidosis without coma; N17.0 Acute kidney failure with tubular necrosis; N12 Tubulo-interstitial nephritis, not specified as acute or chronic; J96.11 Chronic respiratory failure with hypoxia; Z68.41 Body mass index [BMI] 40.0-44.9, adult; E87.2 Acidosis; Z79.4 Long term (current) use of insulin; J44.9 Chronic obstructive pulmonary disease, unspecified; Z99.81 Dependence on supplemental oxygen; E11.22 Type 2 diabetes mellitus with diabetic chronic kidney disease; I12.9 Hypertensive chronic kidney disease with stage 1 through stage 4 chronic kidney disease, or unspecified chronic kidney disease; N18.3 Chronic kidney disease, stage 3 (moderate); G47.33 Obstructive sleep apnea (adult) (pediatric); E03.9 Hypothyroidism, unspecified; R65.20 Severe sepsis without septic shock; N20.0 Calculus of kidney; K57.30 Diverticulosis of large intestine without perforation or abscess without bleeding; K44.9 Diaphragmatic hernia without obstruction or gangrene; E66.9 Obesity, unspecified; E87.5 Hyperkalemia; F17.210 Nicotine dependence, cigarettes, uncomplicated; M10.9 Gout, unspecified; K59.09 Other constipation; Z85.3 Personal history of malignant neoplasm of breast; Z90.12 Acquired absence of left breast and nipple; Z79.82 Long term (current) use of aspirin; Z79.51 Long term (current) use of inhaled steroids; Z79.899 Other long term (current) drug therapy; Z88.5 Allergy status to narcotic agent; Z80.7 Family history of other malignant neoplasms of lymphoid, hematopoietic and related tissues; Z82.49 Family history of ischemic heart disease and other diseases of the circulatory system; Z83.3 Family history of diabetes mellitus
CPT/HCPCS: 36415; 71046; 74176; 80048; 80053; 81003; 81015; 82803; 83036; 83605; 83690; 83735; 84100; 84443; 84484; 84702; 85025; 86140; 87040; 87077; 87086; 87186; 87205; 87641; 93005; 94640; 99285; A9270-GY; J0696; J1815; J1885; J2405; J3475

== ENCOUNTER 2018-08-25 21:32 | Inpatient (IN) | payer MEDICAID ==
[2018-08-25] MEDS ORDERED: Albuterol 0.5% CONC NEB.SOL* 5 MG/ML 20 ml BOT INH ONE (21:58)
[2018-08-25] MEDS ORDERED: Ketorolac INJ* 30 MG/ML 1 ML VIAL IV PUSH ONE (21:58)
[2018-08-25] MEDS ORDERED: Morphine 4 MG/ML VIAL (1 ml) 4 MG/ML VIAL IV ONE (21:58)
[2018-08-25] MEDS ORDERED: methylPREDNISolone 125 MG* 2 ML VIAL IV ONE (21:58)
--- NOTE | 2018-08-25 21:58 | ED ---
HPI Cardiac - HPI Summary HPI Summary: Patient is a 48 y/o F presenting to ED with complaints of sudden onset chest pain and SOB. Sx onset twenty minutes ago. She states that she was sitting in a chair when Sx onset. Deep breaths are noted to aggravate Sx. She reports that she has had episodes of similar chest pain previously, but not as severe. Family member notes that the patient had complaints of left arm numbness as well. PMHx of asthma, COPD, patient is a current smoker. On triage, pain is rated 10/10, deep breaths are noted to aggravate Sx. Home medications and allergies are reviewed. - History of Current Complaint Chief Complaint: EDChestPainROMI Stated Complaint: "CHEST PAIN PT" Time Seen by Provider: 08/25/18 21:50 Hx Obtained From: Patient Hx Last Menstrual Period: None reported Onset/Duration: Started Minutes Ago - 20 minutes, Still Present Timing: Constant, Lasting Minutes - 20 minutes ago onset Current Severity: Severe Pain Intensity: 10 Pain Scale Used: 0-10 Numeric Aggravating Factor(s): Nothing Alleviating Factor(s): Nothing Associated Signs and Symptoms: Positive: Chest Pain, Numbness - left arm, Shortness of Breath - Additional Pertinent History Primary Care Physician: KOLBY - Allergy/Home Medications Allergies/Adverse Reactions: Allergies Allergy/AdvReac Type Severity Reaction Status Date / Time morphine Allergy Itching Verified 11/29/17 11:37 Home Medications: Home Medications Insulin NPH Human Isophane [Novolin N] 40 units SUBCUT BID 08/25/18 [History Confirmed 08/26/18] PMH/Surg Hx/FS Hx/Imm Hx Endocrine/Hematology History: Reports: Hx Diabetes, Hx Thyroid Disease Denies: Hx Anticoagulant Therapy, Hx Blood Disorders, Hx Blood Transfusions, Hx Bone Marrow Disease, Hx Systemic Lupus Erythematosus, Hx Sickle Cell Disease , Hx Anemia, Hx Unexplained Bleeding, Other Endocrine/Hematological Disorders Cardiovascular History: Reports: Hx Hypercholesterolemia, Hx Hypertension Denies: Hx Aneurysm, Hx Angina, Hx Angioplasty, Hx Auto Implanted Cardiovert Defib, Hx Cardiac Arrest, Hx Cardiomegaly, Hx Congenital Heart Disease, Hx Congestive Heart Failure, Hx Coronary Artery Disease, Hx Deep Vein Thrombosis, Hx Embolism, Hx Hypotension, Hx Pacemaker/ICD, Hx Peripheral Vascular Disease, Hx Rheumatic Fever, Hx Syncope, Hx Valvular Heart Disease, Other Cardiovascular Problems/Disorders Respiratory History: Reports: Hx Asthma, Hx Chronic Obstructive Pulmonary Disease (COPD), Hx Seasonal Allergies, Hx Sleep Apnea Denies: Hx Chronic Bronchitis, Hx Cystic Fibrosis, Hx Lung Cancer, Hx Pleural Effusion, Hx Pneumonia, Hx Pulmonary Edema, Hx Pulmonary Embolism, Other Respiratory Problems/Disorders GI History: Reports: Hx Gastroesophageal Reflux Disease, Hx Hiatal Hernia Denies: Hx Cirrhosis, Hx Crohn's Disease, Hx Diverticulosis, Hx Gall Bladder Disease, Hx Gastrointestinal Bleed, Hx Irritable Bowel, Hx Jaundice, Hx Obstructive Bowel, Hx Ileostomy, Hx Pyloric Stenosis, Hx Ulcer, Other GI Disorders History: Reports: 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, in stage 3, Hx Kidney Infection Denies: Hx Acute Renal Failure, Hx Benign Prostatic Hyperplasia, Hx Dialysis , Hx Kidney Stones, Other Problems/Disorders Musculoskeletal History: Reports: Hx Arthritis, Hx Back Problems, Hx Gout, Other Musculoskeletal History - deteriorating disc Denies: Hx Bursitis, Hx Congenital Bone Abnormalities, Hx Fibromyalgia, Hx Orthopedic Injury, Hx Osteoporosis, Hx Scoliosis, Hx Tendonitis Sensory History: Reports: Hx Contacts or Glasses Denies: Hx Cataracts, Hx Eye Injury, Hx Eye Prosthesis, Hx Glaucoma, Hx Legally Blind, Hx Macular Degeneration, Hx Vision Problem, Hx Deafness, Hx Hearing Aid, Hx Hearing Problem, Other Sensory Impairments Opthamlomology History: Reports: Hx Contacts or Glasses Denies: Hx Cataracts, Hx Eye Injury, Hx Eye Prosthesis, Hx Glaucoma, Hx Legally Blind, Hx Macular Degeneration, Hx Vision Problem, Other Sensory Impairments Neurological History: Reports: Hx Headaches - headaches all the time - morning and night. they never go away, Hx Migraine Denies: Hx Dementia, Hx Developmental Delay, Hx Nerve Disease, Hx Seizures, Hx Spinal Cord Injury, Hx Transient Ischemic Attacks (TIA), Other Neuro Impairments/Disorders Psychiatric History: Reports: Hx Depression - Cancer History Cancer Type, Location and Year: breast Hx Chemotherapy: No Hx Radiation Therapy: No Hx Palliative Cancer Treatment: No - Surgical History Surgery Procedure, Year, and Place: skin graft, c-sec, left mastectomy, Hx Anesthesia Reactions: No Infectious Disease History: No Infectious Disease History: Denies: Hx Clostridium Difficile, Hx Hepatitis, Hx Human Immunodeficiency Virus (HIV), Hx of Known/Suspected MRSA, Hx Shingles, Hx Tuberculosis, History Other Infectious Disease, Traveled Outside the [place] in Last 30 Days - Family History Known Family History: Positive: Other Family History: Mother - [place]. - Social History Alcohol Use: None Hx Substance Use: No Substance Use Type: Reports: None Hx Tobacco Use: Yes Smoking Status (MU): Heavy Every Day Tobacco Smoker Type: Cigarettes Length of Time of Smoking/Using Tobacco: 13 years Have You Smoked in the Last Year: Yes Review of Systems Positive: Chest Pain Positive: Shortness Of Breath Positive: Numbness - left arm All Other Systems Reviewed And Are Negative: Yes Physical Exam - Summary Physical Exam Summary: Appearance: Well-appearing, Well-nourished, lying in bed comfortably, Obese Skin: Warm, dry, no obvious rash Eyes: sclera anicteric, no conjunctival pallor ENT: mucous membranes moist, pharynx appears normal Neck: Supple, nontender Respiratory: Moderate respiratory distress, expiratory wheezes, poor aeration Cardiovascular: Tachycardic, Normal S1, S2. No murmurs. Normal distal pulses in tibial and radial bilaterally. Abdomen: Soft, nontender, normal active bowel sounds present Musculoskeletal: Normal, Strength/ROM Intact, no edema Neurological: A&Ox3, awake and alert, mentation is normal, speech is fluent and appropriate Psychiatric: affect is normal, does not appear anxious or depressed Triage Information Reviewed: Yes Vital Signs On Initial Exam: Initial Vitals Temp Pulse Resp BP Pulse Ox 97.9 F 120 22 140/104 80 08/25/18 21:35 08/25/18 21:35 08/25/18 21:35 08/25/18 21:35 08/25/18 21:35 Vital Signs Reviewed: Yes Diagnostics - Vital Signs Vital Signs Temp Pulse Resp BP Pulse Ox 08/25/18 21:47 122 08/25/18 21:35 97.9 F 120 22 140/104 80 - Laboratory Result Diagrams: 08/28/18 06:04 08/28/18 06:04 Lab Statement: Any lab studies that have been ordered have been reviewed, and results considered in the medical decision making process. - Radiology CXR Radiology Interpretation Completed By: ED Physician Summary of Radiographic Findings: CXR showed right lung with increased diffuse interstitial markings with no focal infiltrate, pending official report. - EKG 5414 Cardiac Rate: Tachycardia - rate of 121 BPM EKG Rhythm: Sinus Tachycardia Summary of EKG Findings: Sinus tachycardia at 121 BPM, P waves, QRS complex, and T waves are within normal limits, T waves and intervals are normal, no ischemic changes. This is a normal EKG. Disposition - Course Course Of Treatment: Patient is a 48 y/o F presenting to ED with complaints of sudden onset chest pain and SOB. Sx onset twenty minutes ago. She states that she was sitting in a chair when Sx onset. Deep breaths are noted to aggravate Sx. She reports that she has had episodes of similar chest pain previously, but not as severe. Family member notes that the patient had complaints of left arm numbness as well. PMHx of asthma, COPD, patient is a current smoker. On physical exam, patient is noted to be obese and in moderate respiratory distress , audible wheezes, expiratory wheezes, tachycardic, poor aeration, no swelling of legs. Sinus tachycardia at 121 BPM, P waves, QRS complex, and T waves are within normal limits, T waves and intervals are normal, no ischemic changes. This is a normal EKG. CXR showed right lung with increased diffuse interstitial markings with no focal infiltrate. Labs showed RDW 16, MPV 6.9, D- dimer < 200, sodium 134, BUN 26, creatinine 2.11, glucose 348, first trop 0.01, second 0, albumin/globulin ratio 0.9. During ED course, patient received morphine 4 mg IV, solu-medrol 125 mg IV, toradol 10 mg IV, Benadryl 50 mg IV, albuterol 5 ml and fluids. Vapotherm was also started. Patient's case was discussed with Dr. Alas, Dr. Alas accepts for admission. Patient is agreeable with admission. - Diagnoses Provider Diagnoses: COPD exacerbation - Physician Notifications Discussed Care Of Patient With: Gris Alas Time Discussed With Above Provider: 02:25 Instructed by Provider To: Other - Patient's case was discussed with Dr. Alas , Dr. Alas accepts for admission. - Critical Care Time Critical Care Time: 30-74 min Discharge - Sign-Out/Discharge Documenting (check all that apply): Patient Departure - admit Patient Received Moderate/Deep Sedation with Procedure: No - Discharge Plan Condition: Fair Disposition: ADMITTED TO [facility] - Billing Disposition and Condition Condition: FAIR Disposition: Admitted to [facility] - Attestation Statements Document Initiated by Scribe: Yes Documenting Scribe: TAMMI MAK Provider For Whom Scribe is Documenting (Include Credential): ALEX DANIELS MD Scribe Attestation: I, TAMMI MAK, scribed for ALEX DANIELS MD on 08/29/18 at 0754. Scribe Documentation Reviewed: Yes Provider Attestation: The documentation as recorded by the [email or web address] accurately reflects the service I personally performed and the decisions made by me, ALEX DANIELS MD Status of Scribe Document: Viewed
[2018-08-25] MEDS ORDERED: diPHENhydraMINE IV* 50 MG/ML 1 ml VIAL (BENADRYL) IV ONE (21:59)
[2018-08-25 22:22] LABS: ABS Eosinophils 0.1 10^3/ul (0-0.6); ABS Lymphocytes 1.6 10^3/ul (1.0-4.8); ABS Monocytes 0.7 10^3/ul (0-0.8); ABS Neutrophils 4.9 10^3/ul (1.5-7.7); Hematocrit 42 % (35-47); Hemoglobin 13.9 g/dL (12.0-16.0); Lymphocyte % 21.5 %; Mean Corpuscular HGB Conc 33 g/dL (31-36); Mean Corpuscular Hemoglobin 30 pg (27-31); Mean Corpuscular Volume 91 fL (80-97); Mean Platelet Volume 6.9 fL (7.4-10.4); Platelet Count 233 10^3/uL (150-450); Red Blood Count 4.58 10^6 /uL (3.70-4.87); Red Cell Distribution Width 16 % (10-15); White Blood Count 7.4 10^3/uL (3.5-10.8)
[2018-08-25 22:39] LABS: Albumin 3.4 g/dL (3.2-5.2); Albumin/Globulin Ratio 0.9 (1-3); BUN/Creatinine Ratio 12.3 (8-20); Calcium 8.9 mg/dL (8.6-10.3); EGFR African American 30.2 (>60); Globulin 3.8 g/dL (2-4); Potassium 4.7 mmol/L (3.5-5.0); Total Bilirubin 0.3 mg/dL (0.2-1.0); Total Protein 7.2 g/dL (6.4-8.9)
[2018-08-25 22:41] LABS: Troponin I 0.01 ng/mL (<0.04)
[2018-08-26] MEDS ORDERED: NS 0.9% 1000 ML** 2,000 ML IV ONE (00:27)
[2018-08-26] MEDS ORDERED: Nicotine* 2MG (FRUIT FLAVOR) GUM PO PRN (02:48)
[2018-08-26] MEDS ORDERED: Azithromycin TAB* 250 MG PO ONE (02:48)
[2018-08-26] MEDS ORDERED: Dextrose 50% Syringe 50 ML* 25 GM/50 ML SYRINGE IV PUSH PRN (02:53)
[2018-08-26] MEDS: Albuterol 2.5 MG/3 ML NEB.SOL* (0.083%) INH SCH ×6 (05:53→23:02)
[2018-08-26] MEDS: Levothyroxine TAB* 150 MCG TAB PO SCH (08:21)
[2018-08-26] MEDS: FLUoxetine CAP* 20 MG PO SCH (08:22)
[2018-08-26] MEDS: Sertraline* 50 MG TAB PO SCH ×2 (08:22→21:12)
[2018-08-26] MEDS: Atorvastatin* 80 MG TAB PO SCH (08:22)
[2018-08-26] MEDS: Aspirin 81 mg CHEW TAB* 81 MG TAB.CHEW PO SCH (08:22)
[2018-08-26] MEDS: Gabapentin CAP(*) 300 MG PO SCH ×2 (08:22→21:12)
[2018-08-26] MEDS: Pantoprazole TAB * 40 MG TAB PO SCH (08:22)
[2018-08-26] MEDS: Nicotine PATCH 21 MG/24 HR* PATCH TRANSDERM SCH (08:23)
[2018-08-26 08:24] LABS: EGFR Non-African American 23.9 (>60)
[2018-08-26] MEDS: methylPREDNISolone SOD 40 MG* 1 ML VIAL IV SCH ×2 (08:25→21:11)
[2018-08-26] MEDS: Enoxaparin(*) 40 MG/0.4 ML SYR SUBCUT SCH (08:26)
[2018-08-26] MEDS ORDERED: Sodium Bicarbonate (ANTACID)* 650 MG TAB PO SCH (09:00)
[2018-08-26] MEDS ORDERED: Insulin NPH(*) 1 UNITS UNIT SUBCUT SCH ×2 (09:00→21:00)
[2018-08-26] MEDS ORDERED: Spiriva Inhaler DEVICE* 1 EACH DEVICE INH ONE (09:00)
[2018-08-26] MEDS: Tiotropium CAP.INH* CAP.INH/18 MCG (USE ORDER SET !) INH SCH (09:13)
--- NOTE | 2018-08-26 09:13 | HP ---
CC: Dr. Richards * HISTORY AND PHYSICAL: DATE OF ADMISSION: 08/26/18 PRIMARY CARE PROVIDER: Dr. Richards. CHIEF COMPLAINT: Chest pain and shortness of breath. HISTORY OF PRESENT ILLNESS: Ms. Ray is a 48-year-old female, who has a history of COPD and asthma, hypertension, type 2 diabetes, RUSS, and nocturnal hypoxia, who presents to the emergency room with complaints of chest pain and shortness of breath. The patient states that she went out to [place] with her significant other and friends and at approximately 8:00 p.m., while sitting she developed sharp pain in the middle of her chest. She had associated severe shortness of breath and mild sweating. The pain lasted for approximately an hour. She presented to the emergency room for evaluation. She was started on Vapotherm due to her work of breathing, and at the time of my evaluation, she was feeling quite comfortable and almost back to normal. She had no sick contacts. She does have a chronic cough, but does not bring up any sputum. No fevers, no chills. She does note over the last 1-1/2 months or so that she has had early satiety and she feels unwell after eating. Other than this, she does not have any other complaints. PAST MEDICAL HISTORY: 1. COPD/asthma. 2. Hypertension. 3. Type 2 diabetes. 4. Left breast cancer. 5. Gout. 6. RUSS. 7. Nocturnal hypoxia. 8. CKD, stage 3. 9. Hypothyroidism. PAST SURGICAL HISTORY: 1. . 2. Skin grafting. 3. Tubal ligation. 4. Left mastectomy. MEDICATIONS: 1. NPH 40 units subcutaneous twice daily. 2. Lipitor 80 mg p.o. daily. 3. Gabapentin 300 mg p.o. t.i.d. 4. Flonase 2 squirts both nostrils daily. 5. Fluoxetine 40 mg p.o. daily. 6. Flexeril 10 mg t.i.d. p.r.n. spasm. 7. Vitamin D3 2000 units p.o. daily. 8. Aspirin 81 mg p.o. daily. 9. Albuterol 1 puff inhaled q.4 hours p.r.n. shortness of breath. 10. Sertraline 50 mg p.o. b.i.d. 11. Refresh eye drops 1 drops to both eyes daily. 12. Protonix 40 mg p.o. daily. 13. Synthroid 150 mcg p.o. daily. 14. Letrozole 2.5 mg p.o. daily. 15. Regular insulin 14 units subcutaneous q.a.c. 16. Spiriva 1 puff inhaled daily. ALLERGIES: MORPHINE. FAMILY HISTORY: Mom in her 40s of lymphoma. Dad at the age of 48 of an [place]. SOCIAL HISTORY: The patient smokes 1 pack per day for 15 years. She does not drink alcohol. She is on disability. She is not , but she has significant other. She has 4 children. She indicates that her significant other, Joe, would be her healthcare proxy. REVIEW OF SYSTEMS: A complete 11-system review of systems is obtained. Pertinent positives and negatives are as per HPI and otherwise negative. PHYSICAL EXAMINATION GENERAL: The patient is a well-developed, morbidly-obese, middle-aged female, seen sitting up in a stretcher, on Vapotherm, in no acute distress. VITAL SIGNS: Blood pressure 132/91, pulse 100, respirations 19, temp 97.9, O2 sats 99% on room air. HEENT: Pupils are equal and round. Extraocular muscles are intact. Oropharynx is clear. Oral mucosa is moist. There is no submandibular, cervical , or supraclavicular adenopathy. PULMONARY: There are diffuse expiratory wheezes. There are no crackles on exam. CARDIAC: Normal S1, S2. Heart rate is mildly tachycardic. It is regular. There is no lower extremity edema. ABDOMEN: Bowel sounds present. Abdomen is soft, nontender, nondistended. NEUROLOGIC: Cranial nerves II through XII are grossly intact. Sensation is intact to light touch throughout. Strength is 5/5 and symmetric in both the upper and lower extremities bilaterally. MUSCULOSKELETAL: There is no cyanosis, clubbing of the digits. There is full active range of motion of all 4 extremities. SKIN: Warm and dry. There are no rashes. PSYCH: The patient is alert. She is oriented x3. Affect appears appropriate. DIAGNOSTIC STUDIES/LAB DATA: WBC 7.4, hemoglobin 13.9, hematocrit 42, platelets 233, D-dimer less than 200. Sodium 134, potassium 4.7, chloride 102, CO2 of 24, BUN 26, creatinine 2.11. Glucose 348, calcium 8.9, bilirubin 0.3. AST 21, ALT 20, alk phos 101, troponin 0.01, albumin 3.4. EKG reveals sinus tachycardia without any acute ST-T wave abnormalities. Chest x-ray to my interpretation appears clear, though I do question possible slight infiltrate at the right base. ASSESSMENT AND PLAN: Ms. Ray is a 48-year-old morbidly obese female with a history of chronic obstructive pulmonary disease, nocturnal hypoxia, hypertension, and type 2 diabetes, who presents to the emergency room with complaints of chest pain and shortness of breath. 1. Chronic obstructive pulmonary disease exacerbation. At this point, the patient is unable to come off Vapotherm. This was attempted and she was requiring 15 L of oxygen and this was relatively hypoxic for the degree of O2 supplementation she was receiving. Her work of breathing also increased. The patient has been placed back on Vapotherm and admitted to the intensive care unit. We will continue Solu-Medrol 40 mg IV q.12 hours and the [id number] nebulizer treatments. Azithromycin orally will be given as there are no clear signs of infection at this point, but it may help with inflammation. The chest discomfort that she was feeling, I suspect, is related to her chronic obstructive pulmonary disease exacerbation. Her EKG did not have any acute findings and her troponins have been negative. The patient, in the setting of her chronic obstructive pulmonary disease exacerbation, has acute hypoxic respiratory failure and the need for Vapotherm. 2. Hypertension. The patient's blood pressure had been under good control, however, dipped into the 90s systolic. This will need to be monitored. She is not on any antihypertensives at home. We will monitor her blood pressure. 3. Type 2 diabetes. I am going to continue the patient's usual doses of NPH and regular insulin with meals. I will also add a lispro sliding scale. 4. Obstructive sleep apnea. The patient is noncompliant with CPAP. 5. Chronic kidney disease, stage 3. The patient's creatinine today is above her baseline of 1.7. She has received 2 L of normal saline in the ER. Followup BMP will be obtained. 6. Hypothyroidism. We will continue usual dose of Synthroid. 7. DVT prophylaxis. According to the adult thrombosis prophylaxis risk factor assessment guide, the patient has a total risk factor score of 5 making her the highest risk. She will be placed on Lovenox 40 mg subcutaneous daily. 8. Code status is full. TIME SPENT: A 65 minutes was spent admitting this patient. [id number]/[facility] #: [id number] NUHA
[2018-08-26] MEDS: Insulin REGULAR(*) 1 UNITS UNIT SUBCUT SCH ×3 (09:48→17:00)
[2018-08-26] MEDS ORDERED: Insulin LISPRO* 1 UNITS UNIT SUBCUT ONE ×3 (09:57→15:45)
[2018-08-26] MEDS: Insulin LISPRO* 1 UNITS UNIT SUBCUT SCH ×5 (10:27→22:24)
--- NOTE | 2018-08-26 11:50 | PN ---
Subjective Date of Service: 08/26/18 Interval History: Ms. Ray is feeling better this morning. Her SOB has improved significantly since coming into the ED. Denies any CP or cough. She reports typically using 2L oxygen at night and has for many years. She does check her FS at home and reports fasting glucose is typically in the 180s. Her insulin was increased recently by her PCP. Nursing reports hyperglycemia this morning. Family History: Unchanged from Admission Social History: Unchanged from Admission Past Medical History: Unchanged from Admission Objective Active Medications: Albuterol (Ventolin 2.5 Mg/3 Ml Neb.Leticia*) 2.5 mg INH [id number] AWAKE [facility] Aspirin (Aspirin 81 Mg Chew Tab*) 81 mg PO DAILY [facility] Atorvastatin Calcium (Lipitor*) 80 mg PO DAILY [facility] Azithromycin (Zithromax Tab*) 250 mg PO DAILY [facility] Cyclobenzaprine HCl (Flexeril Tab*) 10 mg PO TID PRN SPASMS Dextrose (D50w Syringe 50 Ml*) 12.5 gm IV PUSH .FOR FS < 60 - SS PRN FS < 60 Enoxaparin Sodium (Lovenox(*)) 40 mg SUBCUT Q24H [facility] Fluoxetine HCl (Prozac Cap*) 40 mg PO DAILY [facility] Gabapentin (Neurontin Cap(*)) 300 mg PO BID [facility] Insulin Human Lispro (Humalog*) 0 units SUBCUT ACHS [facility]; Protocol Insulin Human NPH (Insulin Nph(*)) 40 units SUBCUT BID [facility] Insulin Human Regular (Insulin Regular(*)) 14 units SUBCUT AC [facility] Levothyroxine Sodium (Synthroid Tab*) 150 mcg PO DAILY@0600 [facility] Methylprednisolone Sodium Succinate (Solu-Medrol 40 Mg) 40 mg IV Q12H [facility] Nicotine (Nicotine Patch 21 Mg/24 Hr*) 1 patch TRANSDERM DAILY@0800 [facility] Nicotine Polacrilex (Nicotine Gum*) 2 mg PO Q2H PRN [facility]ING Pantoprazole Sodium (Protonix Tab*) 40 mg PO DAILY [facility] Sertraline HCl (Zoloft*) 50 mg PO BID [facility] Tiotropium [place] (Spiriva Cap.Inh*) 1 cap INH DAILY [facility] Vital Signs - 8 hr 08/26/18 08/26/18 08/26/18 03:45 03:59 04:01 Temperature Pulse Rate 97 97 97 Respiratory 19 18 17 Rate Blood Pressure 128/74 105/90 (mmHg) O2 Sat by Pulse 97 93 92 Oximetry 08/26/18 08/26/18 08/26/18 04:14 04:30 04:44 Temperature Pulse Rate 96 89 83 Respiratory 19 19 17 Rate Blood Pressure 136/96 99/58 93/59 (mmHg) O2 Sat by Pulse 91 99 99 Oximetry 08/26/18 08/26/18 08/26/18 04:59 05:01 05:15 Temperature Pulse Rate 83 83 82 Respiratory 19 17 17 Rate Blood Pressure 94/59 89/56 (mmHg) O2 Sat by Pulse 99 99 99 Oximetry 08/26/18 08/26/18 08/26/18 05:29 05:47 05:48 Temperature 98.3 F Pulse Rate 82 96 68 Respiratory 20 25 18 Rate Blood Pressure 97/63 128/94 96/68 (mmHg) O2 Sat by Pulse 100 100 99 Oximetry 08/26/18 08/26/18 08/26/18 05:52 05:55 06:00 Temperature 96.4 F Pulse Rate 90 91 Respiratory 18 19 Rate Blood Pressure 123/81 (mmHg) O2 Sat by Pulse 99 100 Oximetry 08/26/18 08/26/18 08/26/18 06:15 06:30 06:45 Temperature 96.6 F Pulse Rate 90 88 89 Respiratory 20 18 17 Rate Blood Pressure 113/80 120/78 109/73 (mmHg) O2 Sat by Pulse 100 99 99 Oximetry 08/26/18 08/26/18 08/26/18 07:00 07:29 08:00 Temperature 97.5 F Pulse Rate 91 89 Respiratory 18 19 Rate Blood Pressure 127/90 (mmHg) O2 Sat by Pulse 99 99 Oximetry 08/26/18 08/26/18 08/26/18 09:00 10:00 10:49 Temperature Pulse Rate 93 92 89 Respiratory 14 21 18 Rate Blood Pressure 112/84 107/79 (mmHg) O2 Sat by Pulse 97 93 93 Oximetry 08/26/18 08/26/18 08/26/18 11:00 11:01 11:24 Temperature 96.9 F Pulse Rate 93 94 Respiratory 21 21 Rate Blood Pressure 119/83 (mmHg) O2 Sat by Pulse 93 94 Oximetry Oxygen Devices in Use Now: High Flow Nasal Cannula Appearance: Middle-aged female sitting in bed in NAD Eyes: No Scleral Icterus Ears/Nose/Mouth/Throat: Mucous Membranes Moist Neck: NL Appearance and Movements; NL JVP, Trachea Midline Respiratory: Symmetrical Chest Expansion and Respiratory Effort, Clear to Auscultation Cardiovascular: NL Sounds; No Murmurs; No JVD, RRR Abdominal: NL Sounds; No Tenderness; No Distention Extremities: No Edema Skin: No Rash or Ulcers Neurological: Alert and Oriented x 3 Lines/Tubes/Other Access: Clean, Dry and Intact Peripheral IV Nutrition: Taking PO's Result Diagrams: 08/25/18 22:16 08/26/18 14:23 Assess/Plan/Problems-Billing Assessment: Ms. Ray is a 48 yo F with PMH of COPD, HTN, DM2, nocturnal hypoxia, and CKD stage 3; who presented to the ED with c/o CP and SOB and was found to be hypoxic with a COPD exacerbation. - Patient Problems (1) COPD exacerbation Code(s): J44.1 - CHRONIC OBSTRUCTIVE PULMONARY DISEASE W (ACUTE) EXACERBATION Comment: - Requiring 40L Vapotherm in ICU - CXR shows right basilar infiltrate superimposed on COPD - Wean oxygen and hopefully transfer to floor later today - Continue Solu-Medrol, azithromycin, Spiriva, nebs; start ceftriaxone (2) Hyperkalemia Code(s): E87.5 - HYPERKALEMIA Comment: - Give Patiromer x1 today and recheck BMP this afternoon (3) Uncontrolled diabetes mellitus Code(s): E11.65 - TYPE 2 DIABETES MELLITUS WITH HYPERGLYCEMIA Comment: - Hyperglycemic this morning, no gap - A1c from July was 16.3% - NPH was recently increased by PCP to 45 units in the AM and 43 units in the PM per patient - Will need Endocrinology consult on Tuesday - Increase FSBG to q2h and will give additional Lispro and NPH now - Continue regular insulin and Lispro SS; increase NPH to 45 units BID (4) Acute on chronic renal failure Code(s): N17.9 - ACUTE KIDNEY FAILURE, UNSPECIFIED; N18.9 - CHRONIC KIDNEY DISEASE, UNSPECIFIED Comment: - Baseline stage 3 CKD - Suspect secondary to hypovolemia from hyperglycemia - Give additional liter of NS now (5) Nocturnal hypoxia Code(s): G47.34 - IDIO SLEEP RELATED NONOBSTRUCTIVE ALVEOLAR HYPOVENTILATION Comment: - Baseline 2L at HS - Patient reports she has a sleep study scheduled to evaluate for RUSS (6) HLD (hyperlipidemia) Code(s): E78.5 - HYPERLIPIDEMIA, UNSPECIFIED Comment: - Continue atorvastatin (7) Hypothyroid Code(s): E03.9 - HYPOTHYROIDISM, UNSPECIFIED Comment: - Continue levothyroxine (8) DVT prophylaxis Comment: - Lovenox (9) Full code status Code(s): Z78.9 - OTHER SPECIFIED HEALTH STATUS Comment: Status and Disposition: Inpatient. Anticipate d/c home when medically stable, timeframe unknown. Attending: Michael Paulson
[2018-08-26] MEDS ORDERED: NS 0.9% 1000 ML** 1,000 ML IV ONE (12:11)
[2018-08-26] MEDS ORDERED: Insulin NPH(*) 1 UNITS UNIT SUBCUT ONE (12:12)
[2018-08-26] MEDS ORDERED: Patiromer POWDER* 8.4 GM PAK PO ONE (12:20)
[2018-08-26] MEDS: cefTRIAXone(*) 1 GM in NS 0.9% 50 ML* 50 ML IVPB SCH (13:32)
[2018-08-26 15:21] LABS: BUN/Creatinine Ratio 17.8 (8-20); Calcium 7.9 mg/dL (8.6-10.3); EGFR African American 29.8 (>60); EGFR Non-African American 24.6 (>60); Potassium 4.7 mmol/L (3.5-5.0)
[2018-08-26] MEDS ORDERED: Insulin LISPRO* 1 UNITS UNIT SUBCUT SCH (17:01)
[2018-08-26] MEDS: Acetaminophen TAB* 325 MG PO PRN (21:11)
[2018-08-26] MEDS: Insulin NPH(*) 1 UNITS UNIT SUBCUT SCH (21:12)
[2018-08-26] MEDS: Nicotine Patch Removal NOTE PATCH OFF SCH (21:12)
[2018-08-27] MEDS: Insulin LISPRO* 1 UNITS UNIT SUBCUT SCH ×5 (01:55→19:45)
[2018-08-27] MEDS: Albuterol 2.5 MG/3 ML NEB.SOL* (0.083%) INH SCH ×6 (03:17→23:11)
[2018-08-27 05:08] LABS: ABS Lymphocytes 0.5 10^3/ul (1.0-4.8); ABS Monocytes 0.6 10^3/ul (0-0.8); Hematocrit 37 % (35-47); Hemoglobin 12.1 g/dL (12.0-16.0); Lymphocyte % 3.8 %; Mean Corpuscular HGB Conc 33 g/dL (31-36); Mean Corpuscular Hemoglobin 30 pg (27-31); Mean Corpuscular Volume 91 fL (80-97); Mean Platelet Volume 7.1 fL (7.4-10.4); Platelet Count 233 10^3/uL (150-450); Red Blood Count 4.01 10^6 /uL (3.70-4.87); Red Cell Distribution Width 16 % (10-15); White Blood Count 14.2 10^3/uL (3.5-10.8)
[2018-08-27 05:23] LABS: BUN/Creatinine Ratio 20.8 (8-20); Calcium 8.6 mg/dL (8.6-10.3); EGFR African American 31.8 (>60); EGFR Non-African American 26.3 (>60); Potassium 4.8 mmol/L (3.5-5.0)
[2018-08-27] MEDS: Enoxaparin(*) 40 MG/0.4 ML SYR SUBCUT SCH (06:00)
[2018-08-27] MEDS: Levothyroxine TAB* 150 MCG TAB PO SCH (06:00)
[2018-08-27] MEDS: Acetaminophen TAB* 325 MG PO PRN ×3 (07:10→19:44)
[2018-08-27] MEDS: Tiotropium CAP.INH* CAP.INH/18 MCG (USE ORDER SET !) INH SCH (07:13)
[2018-08-27] MEDS ORDERED: Insulin LISPRO* 1 UNITS UNIT SUBCUT SCH (08:00)
[2018-08-27] MEDS: Insulin REGULAR(*) 1 UNITS UNIT SUBCUT SCH ×3 (08:59→17:42)
[2018-08-27] MEDS: Insulin NPH(*) 1 UNITS UNIT SUBCUT SCH ×2 (09:01→19:45)
[2018-08-27] MEDS: Azithromycin TAB* 250 MG PO SCH (09:02)
[2018-08-27] MEDS: Pantoprazole TAB * 40 MG TAB PO SCH (09:02)
[2018-08-27] MEDS: FLUoxetine CAP* 20 MG PO SCH (09:02)
[2018-08-27] MEDS: Sertraline* 50 MG TAB PO SCH ×2 (09:02→19:44)
[2018-08-27] MEDS: Aspirin 81 mg CHEW TAB* 81 MG TAB.CHEW PO SCH (09:02)
[2018-08-27] MEDS: Atorvastatin* 80 MG TAB PO SCH (09:02)
[2018-08-27] MEDS: Gabapentin CAP(*) 300 MG PO SCH ×2 (09:02→19:44)
[2018-08-27] MEDS: methylPREDNISolone SOD 40 MG* 1 ML VIAL IV SCH ×2 (09:03→19:46)
[2018-08-27] MEDS: Nicotine PATCH 21 MG/24 HR* PATCH TRANSDERM SCH (09:04)
[2018-08-27] MEDS ORDERED: Senna TAB PO PRN (10:14)
--- NOTE | 2018-08-27 10:21 | PN ---
Subjective Date of Service: 08/27/18 Interval History: Patient has improved, feels OK at rest. She has dyspnea walking a few feet from toilet to chair. At home at baseline, can walk from room to room. Oxygen weaned down to 5l/min NC. She also has bifrontal headache that radiates to occiput. Tylenol is not helpful. Asking for senna to prevent constipation, she takes this at home. Family History: Unchanged from Admission Social History: Unchanged from Admission Past Medical History: Unchanged from Admission Objective Active Medications: Acetaminophen (Tylenol Tab*) 650 mg PO Q4H PRN PRN Reason: PAIN Last Admin: 08/27/18 07:10 Dose: 650 mg Albuterol (Ventolin 2.5 Mg/3 Ml Neb.Leticia*) 2.5 mg INH [id number] AWAKE [facility] Last Admin: 08/27/18 07:13 Dose: 2.5 mg Aspirin (Aspirin 81 Mg Chew Tab*) 81 mg PO DAILY [facility] Last Admin: 08/27/18 09:02 Dose: 81 mg Atorvastatin Calcium (Lipitor*) 80 mg PO DAILY [facility] Last Admin: 08/27/18 09:02 Dose: 80 mg Azithromycin (Zithromax Tab*) 250 mg PO DAILY [facility] Last Admin: 08/27/18 09:02 Dose: 250 mg Cyclobenzaprine HCl (Flexeril Tab*) 10 mg PO TID PRN PRN Reason: SPASMS Dextrose (D50w Syringe 50 Ml*) 12.5 gm IV PUSH .FOR FS < 60 - SS PRN PRN Reason: FS < 60 Enoxaparin Sodium (Lovenox(*)) 40 mg SUBCUT Q24H [facility] Last Admin: 08/27/18 06:00 Dose: 40 mg Fluoxetine HCl (Prozac Cap*) 40 mg PO DAILY [facility] Last Admin: 08/27/18 09:02 Dose: 40 mg Gabapentin (Neurontin Cap(*)) 300 mg PO BID [facility] Last Admin: 08/27/18 09:02 Dose: 300 mg Ceftriaxone Sodium 1 gm/ (Sodium Chloride) 50 mls @ 200 mls/hr IVPB Q24H [facility] Last Admin: 08/26/18 13:32 Dose: 200 mls/hr Insulin Human Lispro (Humalog*) 0 units SUBCUT Q4H [facility]; Protocol Last Admin: 08/27/18 09:00 Dose: 10 units Insulin Human NPH (Insulin Nph(*)) 55 units SUBCUT BID [facility] Last Admin: 08/27/18 09:01 Dose: 55 unit Insulin Human Regular (Insulin Regular(*)) 20 units SUBCUT AC [facility] Last Admin: 08/27/18 08:59 Dose: 20 units Levothyroxine Sodium (Synthroid Tab*) 150 mcg PO DAILY@0600 [facility] Last Admin: 08/27/18 06:00 Dose: 150 mcg Methylprednisolone Sodium Succinate (Solu-Medrol 40 Mg) 40 mg IV Q12H [facility] Last Admin: 08/27/18 09:03 Dose: 40 mg Nicotine (Nicotine Patch 21 Mg/24 Hr*) 1 patch TRANSDERM DAILY@0800 [facility] Last Admin: 08/27/18 09:04 Dose: 1 patch Nicotine Polacrilex (Nicotine Gum*) 2 mg PO Q2H PRN PRN Reason: CRAVING Pantoprazole Sodium (Protonix Tab*) 40 mg PO DAILY [facility] Last Admin: 08/27/18 09:02 Dose: 40 mg Pharmacy Profile Note (Nicotine Patch Removal Note*) 1 note PATCH OFF 2100 [facility] Last Admin: 08/26/18 21:12 Dose: 1 note Sertraline HCl (Zoloft*) 50 mg PO BID [facility] Last Admin: 08/27/18 09:02 Dose: 50 mg Tiotropium [place] (Spiriva Cap.Inh*) 1 cap INH DAILY [facility] Last Admin: 08/27/18 07:13 Dose: 1 cap Vital Signs - 8 hr 08/27/18 08/27/18 08/27/18 03:00 03:23 04:00 Temperature 36.1 C Pulse Rate 88 85 Respiratory 18 20 Rate Blood Pressure 109/90 116/93 (mmHg) O2 Sat by Pulse 96 96 Oximetry 08/27/18 08/27/18 08/27/18 07:58 08:00 08:02 Temperature 35.9 C Pulse Rate 96 96 Respiratory 15 15 Rate Blood Pressure 111/89 (mmHg) O2 Sat by Pulse 95 95 Oximetry 08/27/18 09:00 Temperature Pulse Rate 98 Respiratory 30 Rate Blood Pressure 136/86 (mmHg) O2 Sat by Pulse 96 Oximetry Oxygen Devices in Use Now: Nasal Cannula Appearance: alert, no distress Eyes: No Scleral Icterus Ears/Nose/Mouth/Throat: Clear Oropharnyx Neck: No Thyroid Enlargement, Masses Respiratory: Symmetrical Chest Expansion and Respiratory Effort, - - fine wheezes scattered throughout Cardiovascular: NL Sounds; No Murmurs; No JVD, No Edema, - - tachy regular Abdominal: NL Sounds; No Tenderness; No Distention Extremities: No Edema Neurological: Alert and Oriented x 3 Lines/Tubes/Other Access: Clean, Dry and Intact Peripheral IV Nutrition: Taking PO's Result Diagrams: 08/27/18 04:46 08/27/18 04:46 Additional Lab and Data: Laboratory Tests 08/26/18 08/26/18 08/26/18 07:49 11:26 11:30 Glucose 654 H* POC Glucose (mg/dL) > 444 H* Glucose Meter Confirm 716 H* Calcium 08/26/18 08/26/18 14:23 16:51 Glucose 579 H* POC Glucose (mg/dL) 311 H Glucose Meter Confirm Calcium 7.9 L Assess/Plan/Problems-Billing Assessment: Ms. Ray is a 48 yo F with PMH of COPD, HTN, DM2, nocturnal hypoxia, and CKD stage 3; who presented to the ED with c/o CP and SOB and was found to be hypoxic with a COPD exacerbation. - Patient Problems (1) COPD exacerbation Current Visit: Yes Status: Acute Priority: High Code(s): J44.1 - CHRONIC OBSTRUCTIVE PULMONARY DISEASE W (ACUTE) EXACERBATION SNOMED Code(s): 747171136 Comment: - Oxygen requirements improving - CXR shows right basilar infiltrate superimposed on COPD, on azithro and ceftriaxone - Can transfer to floor later today - Continue Solu-Medrol, Spiriva, nebs, adding inhaled steroid/LABA (2) CKD (chronic kidney disease), stage III Current Visit: Yes Status: Acute Priority: Medium Code(s): N18.3 - CHRONIC KIDNEY DISEASE, STAGE 3 (MODERATE) SNOMED Code(s): 488548511 Comment: -hyperkalemia resolved w/ patiromir. -will follow BMP daily. -will check 24h urine, calculated CreatClear may underestimate (3) Uncontrolled diabetes mellitus Current Visit: No Status: Acute Priority: Medium Code(s): E11.65 - TYPE 2 DIABETES MELLITUS WITH HYPERGLYCEMIA SNOMED Code(s): 38571772 Comment: - Hyperglycemia has improved - adding metformin, which can be used with creatinine clearance >30 - can switch to AC/HS finger sticks - May need Endocrinology consult on Tuesday - Continue NPH, regular insulin and Lispro SS (4) Nocturnal hypoxia Current Visit: Yes Status: Acute Priority: Medium Code(s): G47.34 - IDIO SLEEP RELATED NONOBSTRUCTIVE ALVEOLAR HYPOVENTILATION SNOMED Code(s): 674372614 Comment: - Baseline 2L at HS - Patient reports she has a sleep study scheduled to evaluate for RUSS (5) Hypothyroid Current Visit: No Status: Acute Priority: Medium Code(s): E03.9 - HYPOTHYROIDISM, UNSPECIFIED SNOMED Code(s): 46473559 Comment: - constipated chronically, will check TSH - Continue levothyroxine (6) DVT prophylaxis Current Visit: No Status: Acute Priority: Low Code(s): [id number] - SNOMED Code(s): 975265976 Comment: - Lovenox Status and Disposition: Inpatient. Anticipate d/c home when medically stable, timeframe unknown.
[2018-08-27] MEDS: traMADol TAB* 50 MG PO PRN ×2 (10:35→17:46)
[2018-08-27] MEDS: Docusate CAP* 100 MG PO SCH ×2 (11:11→19:45)
[2018-08-27] MEDS ORDERED: metFORMIN* 500 MG TAB PO SCH (12:00)
[2018-08-27] MEDS: cefTRIAXone(*) 1 GM in NS 0.9% 50 ML* 50 ML IVPB SCH (13:03)
[2018-08-27] MEDS: metFORMIN* 500 MG TAB PO SCH (19:44)
[2018-08-27] MEDS: Cyclobenzaprine TAB* 10 MG PO PRN (19:45)
[2018-08-27] MEDS: Nicotine Patch Removal NOTE PATCH OFF SCH (20:10)
[2018-08-27] MEDS: Mometasone/Formoter 200/5 MDI INH SCH (20:15)
[2018-08-28] MEDS: Albuterol 2.5 MG/3 ML NEB.SOL* (0.083%) INH SCH ×4 (03:15→19:24)
[2018-08-28] MEDS: Enoxaparin(*) 40 MG/0.4 ML SYR SUBCUT SCH (05:23)
[2018-08-28] MEDS: Levothyroxine TAB* 150 MCG TAB PO SCH (05:23)
[2018-08-28] MEDS: Cyclobenzaprine TAB* 10 MG PO PRN ×2 (05:24→19:24)
[2018-08-28 06:52] LABS: ABS Lymphocytes 0.6 10^3/ul (1.0-4.8); ABS Monocytes 0.5 10^3/ul (0-0.8); Eosinophil % 0.1 %; Hematocrit 37 % (35-47); Hemoglobin 12.5 g/dL (12.0-16.0); Mean Corpuscular HGB Conc 34 g/dL (31-36); Mean Corpuscular Hemoglobin 30 pg (27-31); Mean Corpuscular Volume 90 fL (80-97); Mean Platelet Volume 7.1 fL (7.4-10.4); Platelet Count 253 10^3/uL (150-450); Red Blood Count 4.11 10^6 /uL (3.70-4.87); Red Cell Distribution Width 16 % (10-15); White Blood Count 12.2 10^3/uL (3.5-10.8)
[2018-08-28 07:15] LABS: BUN/Creatinine Ratio 25.1 (8-20); Calcium 8.7 mg/dL (8.6-10.3); EGFR African American 34.8 (>60); EGFR Non-African American 28.7 (>60); Potassium 4.8 mmol/L (3.5-5.0)
[2018-08-28] MEDS: Mometasone/Formoter 200/5 MDI INH SCH ×2 (07:21→19:36)
[2018-08-28] MEDS: Tiotropium CAP.INH* CAP.INH/18 MCG (USE ORDER SET !) INH SCH (07:21)
[2018-08-28 07:30] LABS: TSH (Thyroid Stimulating Horm) 4.32 mcIU/mL (0.34-5.60)
[2018-08-28 07:32] LABS: Free T4 0.62 ng/dL (0.61-1.12)
[2018-08-28] MEDS: Insulin LISPRO* 1 UNITS UNIT SUBCUT SCH ×4 (07:46→19:44)
[2018-08-28] MEDS: Insulin REGULAR(*) 1 UNITS UNIT SUBCUT SCH ×3 (08:12→17:32)
[2018-08-28] MEDS: methylPREDNISolone SOD 40 MG* 1 ML VIAL IV SCH (08:13)
[2018-08-28] MEDS: Gabapentin CAP(*) 300 MG PO SCH ×2 (08:15→19:23)
[2018-08-28] MEDS: Atorvastatin* 80 MG TAB PO SCH (08:15)
[2018-08-28] MEDS: Aspirin 81 mg CHEW TAB* 81 MG TAB.CHEW PO SCH (08:15)
[2018-08-28] MEDS: metFORMIN* 500 MG TAB PO SCH ×2 (08:15→19:24)
[2018-08-28] MEDS: Sertraline* 50 MG TAB PO SCH ×2 (08:15→19:23)
[2018-08-28] MEDS: FLUoxetine CAP* 20 MG PO SCH (08:15)
[2018-08-28] MEDS: Pantoprazole TAB * 40 MG TAB PO SCH (08:17)
[2018-08-28] MEDS: Nicotine PATCH 21 MG/24 HR* PATCH TRANSDERM SCH (08:17)
[2018-08-28] MEDS: Azithromycin TAB* 250 MG PO SCH (08:17)
[2018-08-28] MEDS: traMADol TAB* 50 MG PO PRN ×2 (08:25→19:22)
[2018-08-28] MEDS: Insulin NPH(*) 1 UNITS UNIT SUBCUT SCH ×2 (09:50→19:44)
[2018-08-28] MEDS: Docusate CAP* 100 MG PO SCH ×2 (09:52→19:23)
--- NOTE | 2018-08-28 10:40 | PN ---
Subjective Date of Service: 08/28/18 Interval History: Patient still SOB w/ exertion. Can walk to bathroom only, agrees to try and walk further today. Baseline O2 2 liters overnight at home. Cough is non-productive. Family History: Unchanged from Admission Social History: Unchanged from Admission Past Medical History: Unchanged from Admission Objective Active Medications: Acetaminophen (Tylenol Tab*) 650 mg PO Q4H PRN PRN Reason: PAIN Last Admin: 08/27/18 19:44 Dose: 650 mg Albuterol (Ventolin 2.5 Mg/3 Ml Neb.Leticia*) 2.5 mg INH [id number] AWAKE [facility] Aspirin (Aspirin 81 Mg Chew Tab*) 81 mg PO DAILY [facility] Last Admin: 08/28/18 08:15 Dose: 81 mg Atorvastatin Calcium (Lipitor*) 80 mg PO DAILY [facility] Last Admin: 08/28/18 08:15 Dose: 80 mg Azithromycin (Zithromax Tab*) 250 mg PO DAILY [facility] Last Admin: 08/28/18 08:17 Dose: 250 mg Cyclobenzaprine HCl (Flexeril Tab*) 10 mg PO TID PRN PRN Reason: SPASMS Last Admin: 08/28/18 05:24 Dose: 10 mg Dextrose (D50w Syringe 50 Ml*) 12.5 gm IV PUSH .FOR FS < 60 - SS PRN PRN Reason: FS < 60 Docusate Sodium (Colace Cap*) 100 mg PO BID [facility] Last Admin: 08/28/18 09:52 Dose: 100 mg Enoxaparin Sodium (Lovenox(*)) 40 mg SUBCUT Q24H [facility] Last Admin: 08/28/18 05:23 Dose: 40 mg Fluoxetine HCl (Prozac Cap*) 40 mg PO DAILY [facility] Last Admin: 08/28/18 08:15 Dose: 40 mg Gabapentin (Neurontin Cap(*)) 300 mg PO BID [facility] Last Admin: 08/28/18 08:15 Dose: 300 mg Ceftriaxone Sodium 1 gm/ (Sodium Chloride) 50 mls @ 200 mls/hr IVPB Q24H [facility] Last Admin: 08/27/18 13:03 Dose: 200 mls/hr Insulin Human Lispro (Humalog*) 0 units SUBCUT ACHS [facility]; Protocol Last Admin: 08/28/18 07:46 Dose: Not Given Insulin Human NPH (Insulin Nph(*)) 55 units SUBCUT BID [facility] Last Admin: 08/28/18 09:50 Dose: 55 unit Insulin Human Regular (Insulin Regular(*)) 20 units SUBCUT AC [facility] Last Admin: 08/28/18 08:12 Dose: 20 units Levothyroxine Sodium (Synthroid Tab*) 150 mcg PO DAILY@0600 [facility] Last Admin: 08/28/18 05:23 Dose: 150 mcg Metformin HCl (Glucophage*) 500 mg PO BID [facility] Last Admin: 08/28/18 08:15 Dose: 500 mg Mometasone Furoate/Formoterol Fumar (Dulera 200/5 Mdi*) 2 puff INH BID [facility] Last Admin: 08/28/18 07:21 Dose: 2 puff Nicotine (Nicotine Patch 21 Mg/24 Hr*) 1 patch TRANSDERM DAILY@0800 [facility] Last Admin: 08/28/18 08:17 Dose: 1 patch Nicotine Polacrilex (Nicotine Gum*) 2 mg PO Q2H PRN PRN Reason: CRAVING Pantoprazole Sodium (Protonix Tab*) 40 mg PO DAILY [facility] Last Admin: 08/28/18 08:17 Dose: 40 mg Pharmacy Profile Note (Nicotine Patch Removal Note*) 1 note PATCH OFF 2100 [facility] Last Admin: 08/27/18 20:10 Dose: 1 note Prednisone (Deltasone Tab*) 60 mg PO DAILY [facility] Senna (Senokot Tab*) 1 tab PO DAILY PRN PRN Reason: CONSTIPATION Last Admin: 08/27/18 10:35 Dose: 1 tab Sertraline HCl (Zoloft*) 50 mg PO BID [facility] Last Admin: 08/28/18 08:15 Dose: 50 mg Tiotropium [place] (Spiriva Cap.Inh*) 1 cap INH DAILY [facility] Last Admin: 08/28/18 07:21 Dose: 1 cap Tramadol HCl (Ultram*) 50 mg PO Q6H PRN PRN Reason: HEADACHE/DISCOMFORT Last Admin: 08/28/18 08:25 Dose: 50 mg Vital Signs - 8 hr 08/28/18 08/28/18 08/28/18 02:53 05:24 07:23 Temperature 36.6 C Pulse Rate 92 92 Respiratory 18 18 20 Rate Blood Pressure 122/79 (mmHg) O2 Sat by Pulse 97 96 Oximetry 08/28/18 08/28/18 08/28/18 07:53 08:15 08:25 Temperature 36.6 C Pulse Rate 95 Respiratory 20 21 21 Rate Blood Pressure 124/78 (mmHg) O2 Sat by Pulse 95 Oximetry Oxygen Devices in Use Now: Nasal Cannula Appearance: alert, no distress Eyes: No Scleral Icterus Ears/Nose/Mouth/Throat: Clear Oropharnyx Neck: No Thyroid Enlargement, Masses Respiratory: Symmetrical Chest Expansion and Respiratory Effort, - - wheezes throughout Cardiovascular: NL Sounds; No Murmurs; No JVD, RRR, No Edema Abdominal: NL Sounds; No Tenderness; No Distention, No Hepatosplenomegaly Lymphatic: No Cervical Adenopathy Neurological: Alert and Oriented x 3 Lines/Tubes/Other Access: Clean, Dry and Intact Peripheral IV Nutrition: Taking PO's Result Diagrams: 08/28/18 06:04 08/28/18 06:04 Additional Lab and Data: Laboratory Tests 08/27/18 08/27/18 08/28/18 16:33 19:28 06:04 Glucose 127 H POC Glucose (mg/dL) 152 H 170 H TSH 4.32 Free T4 0.62 08/28/18 07:43 Glucose POC Glucose (mg/dL) 103 H TSH Free T4 Assess/Plan/Problems-Billing Assessment: Ms. Ray is a 48 yo F with PMH of COPD, HTN, DM2, nocturnal hypoxia, and CKD stage 3; who presented to the ED with c/o CP and SOB and was found to be hypoxic with a COPD exacerbation. - Patient Problems (1) COPD exacerbation Current Visit: Yes Status: Acute Priority: High Code(s): J44.1 - CHRONIC OBSTRUCTIVE PULMONARY DISEASE W (ACUTE) EXACERBATION SNOMED Code(s): 721437003 Comment: - Oxygen requirements still excessive - Treat for pneumonia with azithro and ceftriaxone - switch Solu-Medrol to oral prednisione, continue Spiriva, nebs, inhaled steroid/LABA (2) CKD (chronic kidney disease), stage III Current Visit: Yes Status: Acute Priority: Medium Code(s): N18.3 - CHRONIC KIDNEY DISEASE, STAGE 3 (MODERATE) SNOMED Code(s): 679005415 Comment: -improved creatinine today -pending 24h urine, calculated CreatClear may underestimate (3) Uncontrolled diabetes mellitus Current Visit: No Status: Acute Priority: Medium Code(s): E11.65 - TYPE 2 DIABETES MELLITUS WITH HYPERGLYCEMIA SNOMED Code(s): 70783224 Comment: - Hyperglycemia has resolved, will reduce insulin doses - adding metformin, which can be used with creatinine clearance >30 - can switch to AC/HS finger sticks - Continue NPH and Lispro SS (4) Nocturnal hypoxia Current Visit: Yes Status: Acute Priority: Medium Code(s): G47.34 - IDIO SLEEP RELATED NONOBSTRUCTIVE ALVEOLAR HYPOVENTILATION SNOMED Code(s): 380974767 Comment: - Baseline 2L at HS - Patient reports she has a sleep study scheduled to evaluate for RUSS (5) Hypothyroid Current Visit: No Status: Acute Priority: Medium Code(s): E03.9 - HYPOTHYROIDISM, UNSPECIFIED SNOMED Code(s): 04261946 Comment: - TSH in range - Continue levothyroxine (6) DVT prophylaxis Current Visit: No Status: Acute Priority: Low Code(s): [id number] - SNOMED Code(s): 026913488 Comment: - Lovenox Status and Disposition: Inpatient. Anticipate d/c home in 1-2 days.
[2018-08-28] MEDS: predniSONE TAB* 20 MG PO SCH (11:37)
[2018-08-28] MEDS: cefTRIAXone(*) 1 GM in NS 0.9% 50 ML* 50 ML IVPB SCH (12:45)
[2018-08-28] MEDS: Acetaminophen TAB* 325 MG PO PRN (12:55)
[2018-08-28 16:47] LABS: Urine Creatinine Concentration < 1.00 mg/dL
[2018-08-28] MEDS: Nicotine Patch Removal NOTE PATCH OFF SCH (19:26)
[2018-08-28] MEDS: LORazepam TAB(*) 0.5 MG PO PRN (20:54)
[2018-08-29] MEDS: Albuterol 2.5 MG/3 ML NEB.SOL* (0.083%) INH SCH ×4 (01:33→19:26)
[2018-08-29] MEDS: Cyclobenzaprine TAB* 10 MG PO PRN (05:22)
[2018-08-29] MEDS: Enoxaparin(*) 40 MG/0.4 ML SYR SUBCUT SCH (05:22)
[2018-08-29] MEDS: Levothyroxine TAB* 150 MCG TAB PO SCH (05:22)
[2018-08-29] MEDS: Mometasone/Formoter 200/5 MDI INH SCH ×2 (07:14→19:26)
[2018-08-29] MEDS: Tiotropium CAP.INH* CAP.INH/18 MCG (USE ORDER SET !) INH SCH (07:14)
[2018-08-29] MEDS: Insulin LISPRO* 1 UNITS UNIT SUBCUT SCH ×4 (07:56→21:14)
[2018-08-29] MEDS: Insulin REGULAR(*) 1 UNITS UNIT SUBCUT SCH ×3 (07:56→18:11)
--- NOTE | 2018-08-29 08:53 | PN ---
Subjective Date of Service: 08/29/18 Interval History: Non-productive cough Improved SOB since yesterday but still below baseline and sob present Mild pleuritic CP Family History: Unchanged from Admission Social History: Unchanged from Admission Past Medical History: Unchanged from Admission Objective Active Medications: Acetaminophen (Tylenol Tab*) 650 mg PO Q4H PRN PRN Reason: PAIN Last Admin: 08/28/18 12:55 Dose: 650 mg Albuterol (Ventolin 2.5 Mg/3 Ml Neb.Leticia*) 2.5 mg INH [id number] AWAKE [facility] Last Admin: 08/29/18 07:14 Dose: 2.5 mg Aspirin (Aspirin 81 Mg Chew Tab*) 81 mg PO DAILY [facility] Last Admin: 08/28/18 08:15 Dose: 81 mg Atorvastatin Calcium (Lipitor*) 80 mg PO DAILY [facility] Last Admin: 08/28/18 08:15 Dose: 80 mg Azithromycin (Zithromax Tab*) 250 mg PO DAILY [facility] Last Admin: 08/28/18 08:17 Dose: 250 mg Cyclobenzaprine HCl (Flexeril Tab*) 10 mg PO TID PRN PRN Reason: SPASMS Last Admin: 08/29/18 05:22 Dose: 10 mg Dextrose (D50w Syringe 50 Ml*) 12.5 gm IV PUSH .FOR FS < 60 - SS PRN PRN Reason: FS < 60 Docusate Sodium (Colace Cap*) 100 mg PO BID [facility] Last Admin: 08/28/18 19:23 Dose: 100 mg Enoxaparin Sodium (Lovenox(*)) 40 mg SUBCUT Q24H [facility] Last Admin: 08/29/18 05:22 Dose: 40 mg Fluoxetine HCl (Prozac Cap*) 40 mg PO DAILY [facility] Last Admin: 08/28/18 08:15 Dose: 40 mg Gabapentin (Neurontin Cap(*)) 300 mg PO BID [facility] Last Admin: 08/28/18 19:23 Dose: 300 mg Ceftriaxone Sodium 1 gm/ (Sodium Chloride) 50 mls @ 200 mls/hr IVPB Q24H [facility] Last Admin: 08/28/18 12:45 Dose: 200 mls/hr Insulin Human Lispro (Humalog*) 0 units SUBCUT ACHS [facility]; Protocol Last Admin: 08/29/18 07:56 Dose: Not Given Insulin Human NPH (Insulin Nph(*)) 55 units SUBCUT BID [facility] Last Admin: 08/28/18 19:44 Dose: 55 unit Insulin Human Regular (Insulin Regular(*)) 10 units SUBCUT AC [facility] Last Admin: 08/29/18 07:56 Dose: Not Given Levothyroxine Sodium (Synthroid Tab*) 150 mcg PO DAILY@0600 [facility] Last Admin: 08/29/18 05:22 Dose: 150 mcg Lorazepam (Ativan Tab(*)) 0.25 mg PO Q6H PRN PRN Reason: ANXIETY Last Admin: 08/28/18 20:54 Dose: 0.25 mg Metformin HCl (Glucophage*) 500 mg PO BID [facility] Last Admin: 08/28/18 19:24 Dose: 500 mg Mometasone Furoate/Formoterol Fumar (Dulera 200/5 Mdi*) 2 puff INH BID [facility] Last Admin: 08/29/18 07:14 Dose: 2 puff Nicotine (Nicotine Patch 21 Mg/24 Hr*) 1 patch TRANSDERM DAILY@0800 [facility] Last Admin: 08/28/18 08:17 Dose: 1 patch Nicotine Polacrilex (Nicotine Gum*) 2 mg PO Q2H PRN PRN Reason: CRAVING Pantoprazole Sodium (Protonix Tab*) 40 mg PO DAILY [facility] Last Admin: 08/28/18 08:17 Dose: 40 mg Pharmacy Profile Note (Nicotine Patch Removal Note*) 1 note PATCH OFF 2100 [facility] Last Admin: 08/28/18 19:26 Dose: 1 note Prednisone (Deltasone Tab*) 60 mg PO DAILY [facility] Last Admin: 08/28/18 11:37 Dose: 60 mg Senna (Senokot Tab*) 1 tab PO DAILY PRN PRN Reason: CONSTIPATION Last Admin: 08/27/18 10:35 Dose: 1 tab Sertraline HCl (Zoloft*) 50 mg PO BID [facility] Last Admin: 08/28/18 19:23 Dose: 50 mg Tiotropium [place] (Spiriva Cap.Inh*) 1 cap INH DAILY [facility] Last Admin: 08/29/18 07:14 Dose: 1 cap Tramadol HCl (Ultram*) 50 mg PO Q6H PRN PRN Reason: HEADACHE/DISCOMFORT Last Admin: 08/28/18 19:22 Dose: 50 mg Vital Signs - 8 hr 08/29/18 08/29/18 08/29/18 03:39 05:22 07:15 Temperature 97.5 F Pulse Rate 84 87 Respiratory 22 20 16 Rate Blood Pressure 137/75 (mmHg) O2 Sat by Pulse 96 90 Oximetry Oxygen Devices in Use Now: Nasal Cannula - 2L 94% Appearance: NAD Eyes: No Scleral Icterus Ears/Nose/Mouth/Throat: NL Teeth, Lips, Gums, Clear Oropharnyx Neck: NL Appearance and Movements; NL JVP, Trachea Midline Respiratory: Symmetrical Chest Expansion and Respiratory Effort, - - inspiratory and expiratory wheeze Cardiovascular: RRR Abdominal: NL Sounds; No Tenderness; No Distention, No Hepatosplenomegaly Lymphatic: No Cervical Adenopathy Skin: No Rash or Ulcers Neurological: Alert and Oriented x 3 Result Diagrams: 08/28/18 06:04 08/28/18 06:04 Additional Lab and Data: Laboratory Tests 08/27/18 08/27/18 08/28/18 16:33 19:28 06:04 Glucose 127 H POC Glucose (mg/dL) 152 H 170 H TSH 4.32 Free T4 0.62 08/28/18 07:43 Glucose POC Glucose (mg/dL) 103 H TSH Free T4 Microbiology and Other Data: Microbiology 08/26/18 06:00 Nasal Screen MRSA (PCR) - Final Nasal Mrsa Not Detected Assess/Plan/Problems-Billing Assessment: Ms. Ray is a 48 yo F with PMH of COPD, HTN, DM2, nocturnal hypoxia, and CKD stage 3; who presented to the ED with c/o CP and SOB and was found to be hypoxic with a COPD exacerbation and consolidation c/w PNA - Patient Problems (1) Respiratory failure with hypoxia Comment: COPD exacerbation and PNA Steroids transitioned to PO 08/28, c/w other controller medications c/w azithro and CTX day 4 Oxygen reqiurement declining but may need O2 daytime on discharge (2) Nocturnal hypoxia Comment: - Baseline 2L at HS - Patient reports she has a sleep study scheduled to evaluate for RUSS but she may need d/c with daytime o2 after this exacerbation and PNA (3) Uncontrolled diabetes mellitus Comment: - Hyperglycemia has resolved, will reduce insulin doses - added metformin, which can be used with creatinine clearance >30 - can switch to AC/HS finger sticks - Continue NPH and Lispro SS BSG much better controlled this AM 08/29 (4) DVT prophylaxis Comment: - Lovenox Status and Disposition: Inpatient. Anticipate d/c home in 1-2 days.
[2018-08-29] MEDS: Insulin NPH(*) 1 UNITS UNIT SUBCUT SCH ×2 (09:06→22:33)
[2018-08-29] MEDS: Nicotine PATCH 21 MG/24 HR* PATCH TRANSDERM SCH (09:13)
[2018-08-29] MEDS: predniSONE TAB* 20 MG PO SCH (09:15)
[2018-08-29] MEDS: Docusate CAP* 100 MG PO SCH ×2 (09:15→22:32)
[2018-08-29] MEDS: Gabapentin CAP(*) 300 MG PO SCH ×2 (09:15→22:32)
[2018-08-29] MEDS: FLUoxetine CAP* 20 MG PO SCH (09:15)
[2018-08-29] MEDS: Sertraline* 50 MG TAB PO SCH ×2 (09:15→22:33)
[2018-08-29] MEDS: metFORMIN* 500 MG TAB PO SCH ×2 (09:15→22:32)
[2018-08-29] MEDS: Azithromycin TAB* 250 MG PO SCH (09:15)
[2018-08-29] MEDS: Pantoprazole TAB * 40 MG TAB PO SCH (09:16)
[2018-08-29] MEDS: Atorvastatin* 80 MG TAB PO SCH (09:16)
[2018-08-29] MEDS: Aspirin 81 mg CHEW TAB* 81 MG TAB.CHEW PO SCH (09:16)
[2018-08-29] MEDS: traMADol TAB* 50 MG PO PRN (11:45)
[2018-08-29] MEDS: cefTRIAXone(*) 1 GM in NS 0.9% 50 ML* 50 ML IVPB SCH (13:58)
[2018-08-29] MEDS: LORazepam TAB(*) 0.5 MG PO PRN (14:46)
[2018-08-29] MEDS: Nicotine Patch Removal NOTE PATCH OFF SCH (22:35)
[2018-08-30] MEDS: Albuterol 2.5 MG/3 ML NEB.SOL* (0.083%) INH SCH ×4 (01:55→19:55)
[2018-08-30] MEDS: Levothyroxine TAB* 150 MCG TAB PO SCH (05:56)
[2018-08-30] MEDS: Enoxaparin(*) 40 MG/0.4 ML SYR SUBCUT SCH (05:56)
[2018-08-30] MEDS: Mometasone/Formoter 200/5 MDI INH SCH ×2 (07:17→19:55)
[2018-08-30] MEDS: Tiotropium CAP.INH* CAP.INH/18 MCG (USE ORDER SET !) INH SCH (07:17)
[2018-08-30] MEDS: traMADol TAB* 50 MG PO PRN ×2 (07:27→20:48)
[2018-08-30] MEDS: Nicotine PATCH 21 MG/24 HR* PATCH TRANSDERM SCH (07:28)
[2018-08-30] MEDS: Insulin LISPRO* 1 UNITS UNIT SUBCUT SCH ×4 (07:30→21:00)
[2018-08-30] MEDS: Insulin REGULAR(*) 1 UNITS UNIT SUBCUT SCH ×3 (07:34→17:21)
[2018-08-30] MEDS: metFORMIN* 500 MG TAB PO SCH ×2 (08:37→20:44)
[2018-08-30] MEDS: Sertraline* 50 MG TAB PO SCH ×2 (08:37→20:44)
[2018-08-30] MEDS: predniSONE TAB* 20 MG PO SCH (08:37)
[2018-08-30] MEDS: Gabapentin CAP(*) 300 MG PO SCH ×2 (08:38→20:44)
[2018-08-30] MEDS: Atorvastatin* 80 MG TAB PO SCH (08:38)
[2018-08-30] MEDS: FLUoxetine CAP* 20 MG PO SCH (08:38)
[2018-08-30] MEDS: Insulin NPH(*) 1 UNITS UNIT SUBCUT SCH (08:38)
[2018-08-30] MEDS: Azithromycin TAB* 250 MG PO SCH (08:38)
[2018-08-30] MEDS: Pantoprazole TAB * 40 MG TAB PO SCH (08:38)
[2018-08-30] MEDS: Aspirin 81 mg CHEW TAB* 81 MG TAB.CHEW PO SCH (08:38)
[2018-08-30] MEDS: Docusate CAP* 100 MG PO SCH ×2 (08:38→20:44)
[2018-08-30] MEDS: cefTRIAXone(*) 1 GM in NS 0.9% 50 ML* 50 ML IVPB SCH (13:00)
--- NOTE | 2018-08-30 13:59 | PN ---
Subjective Date of Service: 08/30/18 Interval History: Breathing improved but not baseline Still trouble with NUÑEZ and ambulation Family History: Unchanged from Admission Social History: Unchanged from Admission Past Medical History: Unchanged from Admission Objective Active Medications: Acetaminophen (Tylenol Tab*) 650 mg PO Q4H PRN PRN Reason: PAIN Last Admin: 08/28/18 12:55 Dose: 650 mg Albuterol (Ventolin 2.5 Mg/3 Ml Neb.Leticia*) 2.5 mg INH [id number] AWAKE [facility] Last Admin: 08/30/18 12:16 Dose: 2.5 mg Aspirin (Aspirin 81 Mg Chew Tab*) 81 mg PO DAILY [facility] Last Admin: 08/30/18 08:38 Dose: 81 mg Atorvastatin Calcium (Lipitor*) 80 mg PO DAILY [facility] Last Admin: 08/30/18 08:38 Dose: 80 mg Azithromycin (Zithromax Tab*) 250 mg PO DAILY [facility] Last Admin: 08/30/18 08:38 Dose: 250 mg Cyclobenzaprine HCl (Flexeril Tab*) 10 mg PO TID PRN PRN Reason: SPASMS Last Admin: 08/29/18 05:22 Dose: 10 mg Dextrose (D50w Syringe 50 Ml*) 12.5 gm IV PUSH .FOR FS < 60 - SS PRN PRN Reason: FS < 60 Docusate Sodium (Colace Cap*) 100 mg PO BID [facility] Last Admin: 08/30/18 08:38 Dose: 100 mg Enoxaparin Sodium (Lovenox(*)) 40 mg SUBCUT Q24H [facility] Last Admin: 08/30/18 05:56 Dose: 40 mg Fluoxetine HCl (Prozac Cap*) 40 mg PO DAILY [facility] Last Admin: 08/30/18 08:38 Dose: 40 mg Gabapentin (Neurontin Cap(*)) 300 mg PO BID [facility] Last Admin: 08/30/18 08:38 Dose: 300 mg Ceftriaxone Sodium 1 gm/ (Sodium Chloride) 50 mls @ 200 mls/hr IVPB Q24H [facility] Last Admin: 08/30/18 13:00 Dose: 200 mls/hr Insulin Human Lispro (Humalog*) 0 units SUBCUT ACHS [facility]; Protocol Last Admin: 08/30/18 11:40 Dose: Not Given Insulin Human NPH (Insulin Nph(*)) 55 units SUBCUT BID [facility] Last Admin: 08/30/18 08:38 Dose: 55 unit Insulin Human Regular (Insulin Regular(*)) 10 units SUBCUT AC [facility] Last Admin: 08/30/18 11:40 Dose: 10 units Levothyroxine Sodium (Synthroid Tab*) 150 mcg PO DAILY@0600 [facility] Last Admin: 08/30/18 05:56 Dose: 150 mcg Lorazepam (Ativan Tab(*)) 0.25 mg PO Q6H PRN PRN Reason: ANXIETY Last Admin: 08/29/18 14:46 Dose: 0.25 mg Metformin HCl (Glucophage*) 500 mg PO BID [facility] Last Admin: 08/30/18 08:37 Dose: 500 mg Mometasone Furoate/Formoterol Fumar (Dulera 200/5 Mdi*) 2 puff INH BID [facility] Last Admin: 08/30/18 07:17 Dose: 2 puff Nicotine (Nicotine Patch 21 Mg/24 Hr*) 1 patch TRANSDERM DAILY@0800 [facility] Last Admin: 08/30/18 07:28 Dose: 1 patch Nicotine Polacrilex (Nicotine Gum*) 2 mg PO Q2H PRN PRN Reason: CRAVING Pantoprazole Sodium (Protonix Tab*) 40 mg PO DAILY [facility] Last Admin: 08/30/18 08:38 Dose: 40 mg Pharmacy Profile Note (Nicotine Patch Removal Note*) 1 note PATCH OFF 2100 [facility] Last Admin: 08/29/18 22:35 Dose: 1 note Prednisone (Deltasone Tab*) 60 mg PO DAILY [facility] Last Admin: 08/30/18 08:37 Dose: 60 mg Senna (Senokot Tab*) 1 tab PO DAILY PRN PRN Reason: CONSTIPATION Last Admin: 08/27/18 10:35 Dose: 1 tab Sertraline HCl (Zoloft*) 50 mg PO BID [facility] Last Admin: 08/30/18 08:37 Dose: 50 mg Tiotropium [place] (Spiriva Cap.Inh*) 1 cap INH DAILY [facility] Last Admin: 08/30/18 07:17 Dose: 1 cap Tramadol HCl (Ultram*) 50 mg PO Q6H PRN PRN Reason: HEADACHE/DISCOMFORT Last Admin: 08/30/18 07:27 Dose: 50 mg Vital Signs - 8 hr 08/30/18 08/30/18 08/30/18 07:18 07:27 07:36 Temperature 97.6 F Pulse Rate 103 101 Respiratory 20 18 16 Rate Blood Pressure 149/94 (mmHg) O2 Sat by Pulse 94 97 Oximetry 08/30/18 08/30/18 08/30/18 08:38 10:02 11:15 Temperature Pulse Rate Respiratory 18 16 18 Rate Blood Pressure (mmHg) O2 Sat by Pulse Oximetry 08/30/18 12:16 Temperature Pulse Rate 102 Respiratory 20 Rate Blood Pressure (mmHg) O2 Sat by Pulse 90 Oximetry Oxygen Devices in Use Now: Nasal Cannula Appearance: NAD Eyes: No Scleral Icterus, PERRLA Ears/Nose/Mouth/Throat: NL Teeth, Lips, Gums, Clear Oropharnyx Neck: NL Appearance and Movements; NL JVP, Trachea Midline Respiratory: Symmetrical Chest Expansion and Respiratory Effort, - - wheezes throughout Cardiovascular: RRR Abdominal: NL Sounds; No Tenderness; No Distention Lymphatic: No Cervical Adenopathy Extremities: No Edema Neurological: Alert and Oriented x 3 Result Diagrams: 08/28/18 06:04 08/28/18 06:04 Additional Lab and Data: Laboratory Tests 08/27/18 08/27/18 08/28/18 16:33 19:28 06:04 Glucose 127 H POC Glucose (mg/dL) 152 H 170 H TSH 4.32 Free T4 0.62 08/28/18 07:43 Glucose POC Glucose (mg/dL) 103 H TSH Free T4 Microbiology and Other Data: Microbiology 08/26/18 06:00 Nasal Screen MRSA (PCR) - Final Nasal Mrsa Not Detected Assess/Plan/Problems-Billing Assessment: Ms. Ray is a 48 yo F with PMH of COPD, HTN, DM2, nocturnal hypoxia, and CKD stage 3; who presented to the ED with c/o CP and SOB and was found to be hypoxic with a COPD exacerbation and consolidation c/w PNA - Patient Problems (1) Respiratory failure with hypoxia Comment: COPD exacerbation and PNA Steroids transitioned to PO 08/28, c/w other controller medications c/w azithro and CTX day 5 Oxygen reqiurement declining but may need O2 daytime on discharge (2) Nocturnal hypoxia Comment: - Baseline 2L at HS - Patient reports she has a sleep study scheduled to evaluate for RUSS but she may need d/c with daytime o2 after this exacerbation and PNA (3) Uncontrolled diabetes mellitus Comment: - Hyperglycemia has resolved, will reduce insulin doses AM FSG 60 - decrease NPH from 55 to 50 BID 08/30 - added metformin, which can be used with creatinine clearance >30 - can switch to AC/HS finger sticks - Continue NPH and Lispro SS (4) DVT prophylaxis Comment: - Lovenox Status and Disposition: Inpatient. Anticipate d/c home in 1-2 days.
[2018-08-30] MEDS ORDERED: Insulin NPH(*) 1 UNITS UNIT SUBCUT SCH (21:00)
[2018-08-30] MEDS: Nicotine Patch Removal NOTE PATCH OFF SCH (21:24)
[2018-08-31] MEDS: Albuterol 2.5 MG/3 ML NEB.SOL* (0.083%) INH SCH ×3 (02:59→13:38)
[2018-08-31] MEDS: Enoxaparin(*) 40 MG/0.4 ML SYR SUBCUT SCH (06:25)
[2018-08-31] MEDS: Levothyroxine TAB* 150 MCG TAB PO SCH (06:25)
[2018-08-31] MEDS: Tiotropium CAP.INH* CAP.INH/18 MCG (USE ORDER SET !) INH SCH (07:30)
[2018-08-31] MEDS: Mometasone/Formoter 200/5 MDI INH SCH (07:33)
[2018-08-31] MEDS: Nicotine PATCH 21 MG/24 HR* PATCH TRANSDERM SCH (08:44)
[2018-08-31] MEDS: Aspirin 81 mg CHEW TAB* 81 MG TAB.CHEW PO SCH (08:45)
[2018-08-31] MEDS: predniSONE TAB* 20 MG PO SCH (08:45)
[2018-08-31] MEDS: metFORMIN* 500 MG TAB PO SCH (08:45)
[2018-08-31] MEDS: Gabapentin CAP(*) 300 MG PO SCH (08:45)
[2018-08-31] MEDS: FLUoxetine CAP* 20 MG PO SCH (08:46)
[2018-08-31] MEDS: Sertraline* 50 MG TAB PO SCH (08:46)
[2018-08-31] MEDS: Docusate CAP* 100 MG PO SCH (08:46)
[2018-08-31] MEDS: Atorvastatin* 80 MG TAB PO SCH (08:46)
[2018-08-31] MEDS: Pantoprazole TAB * 40 MG TAB PO SCH (08:46)
[2018-08-31] MEDS: Insulin LISPRO* 1 UNITS UNIT SUBCUT SCH ×2 (08:47→12:35)
[2018-08-31] MEDS: Insulin REGULAR(*) 1 UNITS UNIT SUBCUT SCH ×2 (08:55→12:35)
[2018-08-31] MEDS ORDERED: Insulin NPH(*) 1 UNITS UNIT SUBCUT SCH (09:00)
[2018-08-31 10:21] VITALS: BP 131/78
[2018-08-31] MEDS: cefTRIAXone(*) 1 GM in NS 0.9% 50 ML* 50 ML IVPB SCH (12:33)
--- NOTE | 2018-08-31 15:02 | DS ---
CC: Dr. Richards * DISCHARGE SUMMARY: DATE OF ADMISSION: 08/25/18 DATE OF DISCHARGE: 08/31/18 PRIMARY CARE PROVIDER: Dr. Richards. DISPOSITION AT DISCHARGE: Home. CONDITION ON DISCHARGE: Improved. PRIMARY DIAGNOSES: Chronic obstructive pulmonary disease exacerbation, pneumonia, hyperglycemia, hypoxic respiratory failure, hypoglycemia. SECONDARY DIAGNOSES: Include hypertension, insulin-dependent type 2 diabetes mellitus, gout, obstructive sleep apnea, nocturnal hypoxemia, chronic kidney disease stage 3, hypothyroidism. MEDICATIONS ON DISCHARGE: 1. Insulin NPH 40 units twice daily. 2. Atorvastatin 80 mg daily. 3. Gabapentin 300 mg 3 times a day. 4. Flonase 2 sprays both nares daily. 5. Fluoxetine 40 mg daily. 6. Flexeril 10 mg 3 times a day as needed. 7. Vitamin D3 2000 International Units daily. 8. Aspirin 81 mg daily. 9. Albuterol HFA 1 puff every 4 hours as needed. 10. Zoloft 50 mg twice daily. 11. Refresh Classic 1 drop both eyes daily. 12. Pantoprazole 40 mg daily. 13. Levothyroxine 150 mcg daily. 14. Letrozole 2.5 mg daily. 15. Insulin regular 14 units with meals. 16. Spiriva 1 cap inhaled daily. 17. Prednisone taper 60 mg for 5 days, then 40 mg for 5 days, then 20 mg for 5 days, then 10 mg for 5 days. 18. Metformin 500 mg twice daily. 19. Dulera 200/5 two puffs twice daily. New medications on discharge include: 1. Prednisone taper. 2. Metformin. 3. Dulera. Medications to follow up on discharge please, reviewed and shared both fluoxetine and Zoloft are necessary as were identified on home medication list. PERTINENT IMAGING: During course of the hospital stay, chest x-ray on presentation, impression: Right basilar infiltrate superimposed on stigmata of chronic obstructive pulmonary disease. PERTINENT LABORATORY DATA: Creatinine on presentation 2.1, on discharge 1.8. HISTORY OF PRESENT ILLNESS AND HOSPITAL COURSE: This is a 48-year-old female with past medical history as outlined in the history of present illness, who on day of admission presented to the hospital with increasing chest pain and shortness of breath, required Vapotherm upon admission for hypoxic respiratory failure. She was treated for COPD exacerbation as well as a pneumonia as evident on chest x-ray. Although symptoms were primarily consistent with COPD exacerbation, consolidation on chest x-ray did warrant therapy, may have been precipitating event leading to COPD exacerbation. She was started on Dulera, treated with Vapotherm, started on steroid IV. Her respiratory status improved , however, in the setting of her pneumonia and worsening COPD. She did require oxygen all the time by the time of discharge without clinical improvement. Suspect worsening respiratory status in the setting of COPD and continued tobacco use as an outpatient, superimposed pneumonia pushing her to have chronic respiratory failure. Additionally on presentation, she had hyperglycemia which was noted as an outpatient and hemoglobin A1c of 16.3 in July 2018. Her insulin was titrated up and metformin was added. With these changes, she developed a.m. hypoglycemia. Her insulin was titrated down prior to her discharge; however, metformin was continued. I will recommend followup with Dr. Lyons for further evaluation of her brittle diabetes. She is seeing [facility]; however, they have only reviewed her insulin regimen , not attempted any of the newer medications, and she has been unsatisfied with her care. At the time of discharge, her blood sugar was well under control. Her breathing had improved. She was able to ambulate farther than her baseline without shortness of breath, and she felt close to her baseline, although she still did have active wheezes on expiration throughout, clearly improved since the time of her admission and improved over the last 72 hours under my care. At followup please; 1. Evaluate diabetes control. Consider referral to Endocrinology as indicated above. 2. Continue pulmonary exam. Place the patient on a long and slow taper for her COPD. Recommend evaluation extension if needed. 3. No other specific labs or vitals that need followup. Reasons to return to the hospital including, but not limited to, recurrent or worsening symptoms including shortness of breath or chest pain, fevers, chills, night sweats, loss of consciousness, near loss of consciousness, inability to obtain or tolerate medications discussed with the patient. She acknowledged understanding. Additionally discussed her prednisone taper at length. She acknowledged understanding. TIME SPENT: Greater than 60 minutes was spent on the discharge of this patient , greater than half was spent [id number] with the patient. [id number]/[facility] #: [id number] NUHA
== END 2018-08-31 17:05 | disposition home or self-care (01) | DRG 140 ==
LOC: ED 21:32 → MEDTELE 08-26 02:48 → ICU 08-26 04:48 → MED 08-27 10:12
PROVIDERS: ADMIT Hospitalist; ATTEND Internal Medicine
DX: J44.1 Chronic obstructive pulmonary disease with (acute) exacerbation (principal); J18.9 Pneumonia, unspecified organism; J96.91 Respiratory failure, unspecified with hypoxia; N17.9 Acute kidney failure, unspecified; Z68.41 Body mass index [BMI] 40.0-44.9, adult; J44.0 Chronic obstructive pulmonary disease with (acute) lower respiratory infection; I12.9 Hypertensive chronic kidney disease with stage 1 through stage 4 chronic kidney disease, or unspecified chronic kidney disease; G47.33 Obstructive sleep apnea (adult) (pediatric); M10.9 Gout, unspecified; N18.3 Chronic kidney disease, stage 3 (moderate); E03.9 Hypothyroidism, unspecified; E10.649 Type 1 diabetes mellitus with hypoglycemia without coma; E10.65 Type 1 diabetes mellitus with hyperglycemia; E10.22 Type 1 diabetes mellitus with diabetic chronic kidney disease; F17.210 Nicotine dependence, cigarettes, uncomplicated; E66.01 Morbid (severe) obesity due to excess calories; E78.00 Pure hypercholesterolemia, unspecified; J45.909 Unspecified asthma, uncomplicated; K21.9 Gastro-esophageal reflux disease without esophagitis; K44.9 Diaphragmatic hernia without obstruction or gangrene; M19.90 Unspecified osteoarthritis, unspecified site; F32.9 Major depressive disorder, single episode, unspecified; E78.5 Hyperlipidemia, unspecified; E87.5 Hyperkalemia; Z79.82 Long term (current) use of aspirin; Z79.4 Long term (current) use of insulin; Z85.3 Personal history of malignant neoplasm of breast; Z98.51 Tubal ligation status; Z90.12 Acquired absence of left breast and nipple; Z88.5 Allergy status to narcotic agent; Z80.7 Family history of other malignant neoplasms of lymphoid, hematopoietic and related tissues; Z82.49 Family history of ischemic heart disease and other diseases of the circulatory system
CPT/HCPCS: 36415; 71046; 80048; 80053; 82575; 82947; 84439; 84443; 84484; 85025; 85379; 87641; 93005; 94640; 99285; 99406; A9270-GY; J0696; J1200; J1650; J1815; J1885; J2270; J2920; J2930; J7512; J7611

== ENCOUNTER 2019-02-25 20:23 | Emergency (ER) | payer MEDICAID ==
[2019-02-25] MEDS ORDERED: Tetan/Diph/Pertus SYR(Tdap)* 0.5 ML SYR(BOOSTRIX) use SYR contains LATEX IM ONE (20:29)
--- OUTSIDE RECORDS SUMMARY | 2019-02-25 20:29 | XMS REPORT ---
:1970 Author Organization [facility] Care Team Providers Name Role Phone Unavailable Unavailable Unavailable Problems Condition Condition Condition Status Onset Resolution Last Treating Comments Name Details Category Date Date Treatment Clinician Date Pain frequent Pain Mgmt Resolve 2018-10-25 Willa pain d 10-02 13:00:00 (Mac) 11:00: Jaffe [id number] Respiratory lung sounds Respirator Resolve 2019-01-17 Willa deficit y d - 12:45:00 (Mac) 11:00: Jaffe [id number] Respiratory dyspnea Respirator Resolve 2019-01-17 Willa present y d 10-02 12:45:00 (Mac) 11:00: [id number] Respiratory oxygen Respirator Resolve 2019-01-17 Willa treatments y d - 12:45:00 (Mac) in home 11:00: Jaffe [id number] Endo/Pascual glucose Endo/Pascual Resolve 2019-01-17 Willa testing d 10-02 12:45:00 (Mac) dependence 11:00: Jaffe [id number] Endo/Pascual diabetic Endo/Pascual Resolve 2019-01-17 Willa foot care d - 12:45:00 (Mac) 11:00: Jaffe [id number] Endo/Pascual anti-coagul Endo/Pascual Resolve 2019-01-17 Willa ation d - 12:45:00 (Mac) therapy 11:00: Jaffe [id number] Integument skin Integument Resolve 2018-11-15 Willa integrity d - 12:55:00 (Mac) risk 11:00: Jaffe [id number] Nutrition nutritional Nutrition Resolve 2019-01-03 Willa restriction d 10-02 13:55:00 (Mac) s 11:00: [id number] Elimination urinary Eliminatio Resolve 2018-10-25 Willa incontinenc n d 10-02 13:00:00 (Mac) e 11:00: [id number] Neuro confusion Neuro/Emot Resolve 2019-01-17 Willa present ion d 10-02 12:45:00 (Mac) 11:00: Jaffe [id number] Neuro anxiety Neuro/Emot Resolve 2019-01-03 Willa present ion d 7 13:55:00 (Mac) 11:00: Jaffe [id number] Neuro depressive Neuro/Emot Resolve 2019-01-17 Willa feelings ion d 10-02 12:45:00 (Mac) present 11:00: Jaffe [id number] Activity ADL Activity Resolve 2018-11-29 Willa assistance d 10-02 12:15:00 (Mac) required 11:00: [id number] Activity self-care Activity Resolve 2018-11-29 Willa deficit d 10-02 12:15:00 (Mac) 11:00: [id number] Safety sanitation Safety Resolve 2019-01-17 Willa hazards d 10-02 12:45:00 (Mac) present 11:00: [id number] Safety fall risk Safety Resolve 2019-01-17 Willa factor d 10-02 12:45:00 (Mac) present 11:00: [id number] Safety risk for Safety Resolve 2019-01-17 Willa hospitaliza d 10-02 12:45:00 (Mac) tion 11:00: [id number] Medication oral med Meds Resolve 2019-01-17 Willa assistance d 10-02 12:45:00 (Mac) required 11:00: Jaffe [id number] Medication injectable Meds Resolve 2019-01-17 Willa med d 10-02 12:45:00 (Mac) assistance 11:00: Jaffe required 00 [id number] Medication potential Meds Resolve 2019-01-17 Willa clinically d 10-02 12:45:00 (Mac) significant 11:00: Jaffe medication 00 [id number] issue Pain knowledge/s Pain Mgmt Resolve 2018-10-25 GENIA kill d 10-05 13:00:00 [place] deficit: pt 12:30: #[id number] 00 Safety can be left Safety Resolve 2019-01-17 GENIA alone for d 10-05 12:45:00 [place] only short 12:30: #[id number] periods 00 Respiratory smoker Respirator Resolve 2019-01-17 GENIA y d 10-18 12:45:00 [place] 13:15: #[id number] 00 Endo/Pascual insulin Endo/Pascual Resolve 2019-01-17 GENIA admn d 10-18 12:45:00 [place] dependence 13:15: #[id number] 00 Endo/Pascual knowledge/s Endo/Pascual Resolve 2019-01-17 GENIA kill d 10-18 12:45:00 [place] deficit 13:15: #[id number] hypo/hyperg 00 lycemia: pt Medication inhalant Meds Resolve 2019-01-17 GENIA med d 10-18 12:45:00 [place] assistance 13:15: #[id number] required 00 Cardio hypertensio Cardiovasc Resolve 2019-01-17 GENIA barclay d 10-25 12:45:00 [place] 13:00: #[id number] 00 Respiratory Incentive Respirator Resolve 2018-11-15 GENIA Spirometer y d 10-25 12:55:00 [place] /Acapella 13:00: #[id number] Device 00 treatments in home Respiratory asthma Respirator Resolve 2019-01-17 GENIA y d 10-25 12:45:00 [place] 13:00: #[id number] 00 Endo/Pascual glucose Endo/Pascual Resolve 2019-01-17 GENIA tolerance d 11-01 12:45:00 [place] problem 13:00: #[id number] 00 Elimination urinary Eliminatio Resolve 2018-11-01 GENIA incontinenc n d 11-01 13:00:00 [place] e 13:00: #[id number] 00 Neuro impaired Neuro/Emot Unknown GENIA marrero ion 11-01 [place] willard 13:00: #[id number] 00 Cardio edema Cardiovasc Resolve 2019-01-17 GENIA davidsonkel d 11-15 12:45:00 [place] 12:55: #[id number] 00 Elimination urinary Eliminatio Resolve 2018-11-15 GENIA incontinenc n d 11-15 12:55:00 [place] e 12:55: #[id number] 00 Neuro impaired Neuro/Emot Resolve 2019-01-17 GENIA marrero ion d 11-15 12:45:00 [place] willard 12:55: #[id number] 00 Respiratory pneumonia Respirator Resolve 2019-01-17 GENIA y d 11-22 12:45:00 [place] 12:30: #[id number] 00 Nutrition knowledge/s Nutrition Unknown GENIA kill 11-22 [place] deficit: pt 12:30: #[id number] 00 Elimination urinary Eliminatio Resolve 2018-11-22 GENIA incontinenc n d 11-22 12:30:00 [place] e 12:30: #[id number] 00 Respiratory nebulizer Respirator Resolve 2019-01-17 GENIA treatment y d 11-29 12:45:00 [place] in home 12:15: #[id number] 00 Nutrition knowledge/s Nutrition Resolve 2019-01-03 GENIA kill d 11-29 13:55:00 [place] deficit: pt 12:15: #[id number] 00 Elimination urinary Eliminatio Resolve 2018-11-29 GENIA incontinenc n d 11-29 12:15:00 [place] e 12:15: #[id number] 00 24 Hr Diet nutrition NT: 24Hr Active [place] intake Diet 11-30 [place] deficit 15:00: [id number] 00 24 Hr Diet knowledge/s NT: 24Hr Active [place] kill Diet 11-30 [place] deficit - 15:00: [id number] pt 00 Nutritional eating NT: Resolve 2018-11-30 Pur[place] Barrier difficultie Barriers d 11-30 15:00:00 [place] s present 15:00: [id number] 00 Elimination urinary Eliminatio Resolve 2018-032018-12-06 GENIA incontinenc n d 0-02 13:20:00 [place] e 13:20: #[id number] 00 24 Hr Diet nutrition NT: 24Hr Unknown 2018-03 GENIA intake Diet 0-02 [place] deficit 13:20: #[id number] 00 24 Hr Diet knowledge/s NT: 24Hr Unknown 2018-03 GENIA kill Diet 0-02 [place] deficit - 13:20: #[id number] pt 00 Elimination urinary Eliminatio Resolve 2018-032018-12-13 GENIA incontinenc n d 0-09 13:30:00 [place] e 13:30: #[id number] 00 Elimination urinary Eliminatio Resolve 2018-032018-12-20 GENIA incontinenc n d 0-16 12:25:00 [place] e 12:25: #[id number] 00 Nutritional eating NT: Resolve 2018-032018-12-21 [place] Barrier difficultie Barriers d 0-17 14:00:00 [place] present 14:00: [id number] 00 Elimination urinary Eliminatio Resolve 2018-032018-12-27 GENIA incontinenc n d 0-23 13:00:00 [place] e 13:00: #[id number] 00 Elimination urinary Eliminatio Resolve 2018-032019-01-03 GENIA incontinenc n d 0-30 13:55:00 [place] e 13:55: #[id number] 00 Allergies, Adverse Reactions, Alerts Allergy Allergy Type Status Severity Reaction(s) Onset Inactive Treating Comments Name Date Date Clinician Chantix Medication Active Unknown nightmares 2018-09 Kristin Beam Name ID -26 morphine Base Active Unknown sweating 2018-09 Kristin Beam Ingredient -26 Medications Ordered Filled Start Stop Current Ordering Indication Dosage Frequency Signature Comments Components Medication Medication Date Date Medication? Clinician (SIG) Name Name atorvastati atorvastati No Galyanova Unknown Unknown n 80 mg n 80 mg 7- MDVerónica tablet tablet na budesonide- budesonide- No Galyanova Unknown Unknown formoterol formoterol 10-02 Verónica MEDEIROS HFA 160 HFA 160 na mcg-4.5 mcg-4.5 mcg/actuati mcg/actuati on aerosol on aerosol inhaler inhaler Vitamin D3 Vitamin D3 No Galyanova Unknown Unknown 2,000 unit 2,000 unit 10-02 MD,Verónica capsule capsule na cyclobenzap cyclobenzap No Galyanova Unknown Unknown rine 10 mg rine 10 mg 10-02 MD,Verónica tablet tablet na FLUoxetine FLUoxetine No Galyanova Unknown Unknown 40 mg 40 mg 10-02 MD,Verónica capsule capsule na fluticasone fluticasone No Galyanova Unknown Unknown furoate 50 furoate 50 10-02 MD,Verónica mcg/actuati mcg/actuati na on blister on blister powder for powder for inhalation inhalation gabapentin gabapentin No Galyanova Unknown Unknown 300 mg 300 mg 10-02 MD,Verónica capsule capsule na insulin NPH insulin NPH 2018- No Galyanova Unknown Unknown isophane isophane 10-02 08-21 MD,Verónica U-100 human U-100 human na 100 unit/mL 100 unit/mL (3 mL) (3 mL) subcutaneou subcutaneou s pen s pen letrozole letrozole No Galyanova Unknown Unknown 2.5 mg 2.5 mg 10-02 MD,Verónica tablet tablet na Aspirin Aspirin No Galyanova Unknown Unknown Childrens Childrens 10-02 MD,Verónica 81 mg 81 mg na chewable chewable tablet tablet Dulera 200 Dulera 200 No Galyanova Unknown Unknown mcg-5 mcg-5 10-02 MD,Verónica mcg/actuati mcg/actuati na on HFA on HFA aerosol aerosol inhaler inhaler Protonix 40 Protonix 40 No Galyanova Unknown Unknown mg mg 10-02 MD,Verónica tablet,alhaji tablet,alhaji na yed release yed release polyethylen polyethylen No Galyanova Unknown Unknown e glycol e glycol 10-02 MD,Veróniac 3350 17 3350 17 na gram/dose gram/dose oral powder oral powder ProAir HFA ProAir HFA No Galyanova Unknown Unknown 90 90 10-02 MD,Verónica mcg/actuati mcg/actuati na on aerosol on aerosol inhaler inhaler HumuLIN R HumuLIN R No Galyanova Unknown Unknown U-500 U-500 10-02 MD,Verónica (Conc) (Conc) na Insulin Insulin Kwikpen 500 Kwikpen 500 unit/mL (3 unit/mL (3 mL) mL) subcutaneou subcutaneou s s Spiriva Spiriva No Galyanova Unknown Unknown with with 10-02 MD,Verónica HandiHaler HandiHaler na 18 mcg and 18 mcg and inhalation inhalation capsules capsules sertraline sertraline No Galyanova Unknown Unknown 50 mg 50 mg 10-02 MD,Verónica tablet tablet na levothyroxi levothyroxi No Galyanova Unknown Unknown ne 200 mcg ne 200 mcg 10-02 MD,Verónica tablet tablet na oxygen oxygen No Galyanova Unknown Unknown 10-02 MD,Verónica na HumuLIN HumuLIN No Galyanova Unknown Unknown 70/30 U-100 70/30 U-100 10-20 MD,Verónica Insulin Insulin na KwikPen 100 KwikPen 100 unit/mL unit/mL subcutaneou subcutaneou s s HumuLIN HumuLIN No Galyanova Unknown Unknown 70/30 U-100 70/30 U-100 10-20 MD,Verónica Insulin Insulin na KwikPen 100 KwikPen 100 unit/mL unit/mL subcutaneou subcutaneou s s Vital Signs Vital Name Observation Time Observation Value Comments SYSTOLIC mm[Hg] 2019-01-18 18:08:51 132 mm[Hg] mm[Hg] Method: Sit SYSTOLIC mm[Hg] 2018-10-08 18:07:09 140 mm[Hg] mm[Hg] Method: Stand DIASTOLIC mm[Hg] 2019-01-18 18:08:51 90 mm[Hg] mm[Hg] Method: Sit DIASTOLIC mm[Hg] 2018-10-08 18:07:09 80 mm[Hg] mm[Hg] Method: Stand PULSE 2019-01-18 18:08:51 101 /min /min RESP RATE 2019-01-18 18:08:51 17 /min /min TEMP 2019-01-18 18:08:51 97.2 [degF] Procedures This patient has no known procedures. Results This patient has no known results.
--- OUTSIDE RECORDS SUMMARY | 2019-02-25 20:29 | XMS REPORT ---
:1970 Author Organization [facility] Care Team Providers Name Role Phone Unavailable Unavailable Unavailable Problems Condition Condition Condition Status Onset Resolution Last Treating Comments Name Details Category Date Date Treatment Clinician Date Pain frequent Pain Mgmt Resolve 2018-10-25 Willa pain d - 13:00:00 (Mac) 11:00: Jaffe [id number] Respiratory lung sounds Respirator Resolve 2019-01-17 Willa deficit y d - 12:45:00 (Mac) 11:00: Jaffe [id number] Respiratory dyspnea Respirator Resolve 2019-01-17 Willa present y d 10-02 12:45:00 (Mac) 11:00: [id number] Respiratory oxygen Respirator Resolve 2019-01-17 Willa treatments y d - 12:45:00 (Mac) in home 11:00: Jaffe [id number] Endo/Pascual glucose Endo/Pascual Resolve 2019-01-17 Willa testing d 10-02 12:45:00 (Mac) dependence 11:00: Jaffe [id number] Endo/Pascual diabetic Endo/Pascual Resolve 2019-01-17 Willa foot care d - 12:45:00 (Mac) 11:00: Jaffe [id number] Endo/Pascual anti-coagul Endo/Pascual Resolve 2019-01-17 Willa ation d - 12:45:00 (Mac) therapy 11:00: Jaffe [id number] Integument skin Integument Resolve 2018-11-15 Willa integrity d - 12:55:00 (Mac) risk 11:00: Jaffe [id number] Nutrition nutritional Nutrition Resolve 2019-01-03 Willa restriction d 10-02 13:55:00 (Mac) s 11:00: [id number] Elimination urinary Eliminatio Resolve 2018-10-25 Willa incontinenc n d 10-02 13:00:00 (Mac) e 11:00: [id number] Neuro confusion Neuro/Emot Resolve 2019-01-17 Willa present ion d 10-02 12:45:00 (Mac) 11:00: Jaffe [id number] Neuro anxiety Neuro/Emot Resolve 2019-01-03 Willa present ion d 7 13:55:00 (Mac) 11:00: Jaffe [id number] Neuro depressive Neuro/Emot Resolve 2019-01-17 Willa feelings ion d 10-02 12:45:00 (Mac) present 11:00: Jaffe [id number] Activity ADL Activity Resolve 2018-11-29 Willa assistance d 10-02 12:15:00 (Mac) required 11:00: [id number] Activity self-care Activity Resolve 2018-11-29 Willa deficit d 10-02 12:15:00 (Mac) 11:00: [id number] Safety sanitation Safety Resolve 2019-01-17 Willa hazards d 10-02 12:45:00 (Mac) present 11:00: [id number] Safety fall risk Safety Resolve 2019-01-17 Willa factor d 10-02 12:45:00 (Mac) present 11:00: [id number] Safety risk for Safety Resolve 2019-01-17 Willa hospitaliza d 10-02 12:45:00 (Mac) tion 11:00: [id number] Medication oral med Meds Resolve 2019-01-17 Willa assistance d 10-02 12:45:00 (Mac) required 11:00: Jaffe [id number] Medication injectable Meds Resolve 2019-01-17 Willa med d 10-02 12:45:00 (Mac) assistance 11:00: Jaffe required 00 [id number] Medication potential Meds Resolve 2019-01-17 Willa clinically d 10-02 12:45:00 (Mac) significant 11:00: Jaffe medication 00 [id number] issue Pain knowledge/s Pain Mgmt Resolve 2018-10-25 GENIA kill d 10-05 13:00:00 [place] deficit: pt 12:30: #[id number] 00 Safety can be left Safety Resolve 2019-01-17 GENIA alone for d 10-05 12:45:00 [place] only short 12:30: #[id number] periods 00 Respiratory smoker Respirator Resolve 2019-01-17 GENIA y d 10-18 12:45:00 [place] 13:15: #[id number] 00 Endo/Pascual insulin Endo/Pascual Resolve 2019-01-17 GENIA admn d 10-18 12:45:00 [place] dependence 13:15: #[id number] 00 Endo/Pascual knowledge/s Endo/Pascual Resolve 2019-01-17 GENIA kill d 10-18 12:45:00 [place] deficit 13:15: #[id number] hypo/hyperg 00 lycemia: pt Medication inhalant Meds Resolve 2019-01-17 GENIA med d 10-18 12:45:00 [place] assistance 13:15: #[id number] required 00 Cardio hypertensio Cardiovasc Resolve 2019-01-17 GENIA barclay d 10-25 12:45:00 [place] 13:00: #[id number] 00 Respiratory Incentive Respirator Resolve 2018-11-15 GENIA Spirometer y d 10-25 12:55:00 [place] /Acapella 13:00: #[id number] Device 00 treatments in home Respiratory asthma Respirator Resolve 2019-01-17 GENIA y d 10-25 12:45:00 [place] 13:00: #[id number] 00 Endo/Pascual glucose Endo/Pascual Resolve 2019-01-17 GENIA tolerance d 11-01 12:45:00 [place] problem 13:00: #[id number] 00 Elimination urinary Eliminatio Resolve 2018-11-01 GENIA incontinenc n d 11-01 13:00:00 [place] e 13:00: #[id number] 00 Neuro impaired Neuro/Emot Unknown GENIA marrero ion 11-01 [place] willard 13:00: #[id number] 00 Cardio edema Cardiovasc Resolve 2019-01-17 GENIA davidsonkel d 11-15 12:45:00 [place] 12:55: #[id number] 00 Elimination urinary Eliminatio Resolve 2018-11-15 GENIA incontinenc n d 11-15 12:55:00 [place] e 12:55: #[id number] 00 Neuro impaired Neuro/Emot Resolve 2019-01-17 GENIA marrero ion d 11-15 12:45:00 [place] willard 12:55: #[id number] 00 Respiratory pneumonia Respirator Resolve 2019-01-17 GENIA y d 11-22 12:45:00 [place] 12:30: #[id number] 00 Nutrition knowledge/s Nutrition Unknown GENIA kill 11-22 [place] deficit: pt 12:30: #[id number] 00 Elimination urinary Eliminatio Resolve 2018-11-22 GENIA incontinenc n d 11-22 12:30:00 [place] e 12:30: #[id number] 00 Respiratory nebulizer Respirator Resolve 2019-01-17 GENIA treatment y d 11-29 12:45:00 [place] in home 12:15: #[id number] 00 Nutrition knowledge/s Nutrition Resolve 2019-01-03 GENIA kill d 11-29 13:55:00 [place] deficit: pt 12:15: #[id number] 00 Elimination urinary Eliminatio Resolve 2018-11-29 GENIA incontinenc n d 11-29 12:15:00 [place] e 12:15: #[id number] 00 24 Hr Diet nutrition NT: 24Hr Active Purvi intake Diet 11-30 [place] deficit 15:00: [id number] 00 24 Hr Diet knowledge/s NT: 24Hr Active [place] kill Diet 11-30 [place] deficit - 15:00: [id number] pt 00 Nutritional eating NT: Resolve 2018-11-30 [place] Barrier difficultie Barriers d 11-30 15:00:00 [place] s present 15:00: [id number] 00 Elimination urinary Eliminatio Resolve 2018-032018-12-06 GENIA incontinenc n d 0-02 13:20:00 [place] e 13:20: #[id number] 00 24 Hr Diet nutrition NT: 24Hr Unknown 2018-03 GENIA intake Diet 0-02 [place] deficit 13:20: #[id number] 00 24 Hr Diet knowledge/s NT: 24Hr Unknown 2018-03 GENIA kill Diet 0-02 [place] deficit - 13:20: #[id number] pt 00 Elimination urinary Eliminatio Resolve 2018-032018-12-13 GENIA incontinenc n d 0-09 13:30:00 [place] e 13:30: #[id number] 00 Elimination urinary Eliminatio Resolve 2018-032018-12-20 GENIA incontinenc n d 0-16 12:25:00 [place] e 12:25: #[id number] 00 Nutritional eating NT: Resolve 2018-032018-12-21 [place] Barrier difficultie Barriers d 0-17 14:00:00 [place] s present 14:00: [id number] 00 Elimination urinary Eliminatio Resolve 2018-032018-12-27 GENIA incontinenc n d 0-23 13:00:00 [place] e 13:00: #[id number] 00 Elimination urinary Eliminatio Resolve 2018-032019-01-03 GENIA incontinenc n d 0-30 13:55:00 [place] e 13:55: #[id number] 00 Allergies, Adverse Reactions, Alerts Allergy Allergy [...] Unknown Unknown e glycol e glycol 10-02 MD,Verónica 3350 17 3350 17 na gram/dose gram/dose [...]
--- OUTSIDE RECORDS SUMMARY | 2019-02-25 20:29 | XMS REPORT ---
:1970 Author Organization [facility] Care Team Providers Name Role Phone Unavailable Unavailable Unavailable Problems Condition Condition Condition Status Onset Resolution Last Treating Comments Name Details Category Date Date Treatment Clinician Date Pain frequent Pain Mgmt Resolve 2018-10-25 Willa pain d 10-02 13:00:00 (Mac) 11:00: Ld [id number] Respiratory lung sounds Respirator Active Willa deficit y 10-02 (Mac) 11:00: Jaffe [id number] Respiratory dyspnea Respirator Active Willa present y 10-02 (Mac) 11:00: Ld [id number] Respiratory oxygen Respirator Active Willa treatments y 10-02 (Mac) in home 11:00: Jaffe [id number] Endo/Pascual glucose Endo/Pascual Active Willa testing 10-02 (Mac) dependence 11:00: Jaffe [id number] Endo/Pascual diabetic Endo/Pascual Active Willa foot care 10-02 (Mac) 11:00: Jaffe [id number] Endo/Pascual anti-coagul Endo/Pascual Active Willa ation 10-02 (Mac) therapy 11:00: Jaffe [id number] Integument skin Integument Resolve 2018-11-15 Willa integrity d 10-02 12:55:00 (Mac) risk 11:00: Jaffe [id number] Nutrition nutritional Nutrition Resolve 2019-01-03 Willa restriction d 10-02 13:55:00 (Mac) s 11:00: Jaffe [id number] Elimination urinary Eliminatio Resolve 2018-10-25 Willa incontinenc n d 10-02 13:00:00 (Mac) e 11:00: Ld [id number] Neuro confusion Neuro/Emot Active Willa present ion 10-02 (Mac) 11:00: Jaffe 00 [id number] Neuro anxiety Neuro/Emot Resolve 2019-01-03 Willa present ion d 10-02 13:55:00 (Mac) 11:00: Jaffe 00 [id number] Neuro depressive Neuro/Emot Active Willa feelings ion 10-02 (Mac) present 11:00: Jaffe 00 [id number] Activity ADL Activity Resolve 2018-11-29 Willa assistance d 10-02 12:15:00 (Mac) required 11:00: Jaffe [id number] Activity self-care Activity Resolve 2018-11-29 Willa deficit d 10-02 12:15:00 (Mac) 11:00: Jaffe 00 [id number] Safety sanitation Safety Active Willa hazards 10-02 (Mac) present 11:00: Jaffe [id number] Safety fall risk Safety Active Willa factor 10-02 (Mac) present 11:00: Jaffe [id number] Safety risk for Safety Active Willa hospitaliza 10-02 (Mac) tion 11:00: Jaffe [id number] Medication oral med Meds Active Willa assistance 10-02 (Mac) required 11:00: Jaffe 00 [id number] Medication injectable Meds Active Willa med 10-02 (Mac) assistance 11:00: Jaffe required 00 [id number] Medication potential Meds Active Willa clinically 10-02 (Mac) significant 11:00: Ld medication 00 [id number] issue Pain knowledge/s Pain Mgmt Resolve 2018-10-25 GENIA kill d 10-05 13:00:00 JARAD deficit: pt 12:30: #[id number] 00 Safety can be left Safety Active GENIA alone for 10-05 JARAD only short 12:30: #[id number] periods 00 Respiratory smoker Respirator Active GENIA y 10-18 [place] 13:15: #[id number] 00 Endo/Pascual insulin Endo/Pascual Active GENIA admn 10-18 [place] dependence 13:15: #[id number] 00 Endo/Pascual knowledge/s Endo/Pascual Active GENIA kill 10-18 [place] deficit 13:15: #[id number] hypo/hyperg 00 lycemia: pt Medication inhalant Meds Active GENIA med 10-18 [place] assistance 13:15: #[id number] required 00 Cardio hypertensio Cardiovasc Active GENIA kristin ular 10-25 [place] 13:00: #[id number] 00 Respiratory Incentive Respirator Resolve 2018-11-15 GENIA Spirometer y d 10-25 12:55:00 [place] /Acapella 13:00: #[id number] Device 00 treatments in home Respiratory asthma Respirator Active GENIA y 10-25 [place] 13:00: #[id number] 00 Endo/Pascual glucose Endo/Pascual Active GENIA tolerance 11-01 [place] problem 13:00: #[id number] 00 Elimination urinary Eliminatio Resolve 2018-11-01 GENIA incontinenc n d 11-01 13:00:00 [place] e 13:00: #[id number] 00 Neuro impaired Neuro/Emot Unknown GENIA decision-ma ion 11-01 [place] 13:00: #[id number] 00 Cardio edema Cardiovasc Active GENIA davidsonar 11-15 [place] 12:55: #[id number] 00 Elimination urinary Eliminatio Resolve 2018-11-15 GENIA incontinenc n d 11-15 12:55:00 [place] e 12:55: #[id number] 00 Neuro impaired Neuro/Emot Active GENIA decision-ma ion 11-15 [place] 12:55: #[id number] 00 Respiratory pneumonia Respirator Active GENIA y 11-22 [place] 12:30: #[id number] 00 Nutrition knowledge/s Nutrition Unknown GENIA kill 11-22 [place] deficit: pt 12:30: #[id number] 00 Elimination urinary Eliminatio Resolve 2018-11-22 GENIA incontinenc n d 11-22 12:30:00 [place] e 12:30: #[id number] 00 Respiratory nebulizer Respirator Active GENIA treatment y 11-29 [place] in home 12:15: #[id number] 00 Nutrition knowledge/s Nutrition Resolve 2019-01-03 GENIA kill d 11-29 13:55:00 [place] deficit: pt 12:15: #[id number] 00 Elimination urinary Eliminatio Resolve 2018-11-29 GENIA incontinenc n d 11-29 12:15:00 [place] e 12:15: #[id number] 00 24 Hr Diet nutrition NT: 24Hr Active Purvi intake Diet 11-30 [place] deficit 15:00: [id number] 00 24 Hr Diet knowledge/s NT: 24Hr Active [place]vi kill Diet 11-30 [place] deficit - 15:00: [id number] pt 00 Nutritional eating NT: Resolve 2018-11-30 [place] Barrier difficultie Barriers d 11-30 15:00:00 [place] s present 15:00: [id number] 00 Elimination urinary Eliminatio Resolve 2018-032018-12-06 GENIA incontinenc n d 0- 13:20:00 [place] e 13:20: #[id number] 00 24 Hr Diet nutrition NT: 24Hr Unknown 2018-03 GENIA intake Diet 0-02 [place] deficit 13:20: #[id number] 00 24 Hr Diet knowledge/s NT: 24Hr Unknown 2018-03 GENIA kill Diet 0-02 [place] deficit - 13:20: #[id number] pt 00 Elimination urinary Eliminatio Resolve 2018-032018-12-13 GENIA incontinenc n d 0-09 13:30:00 [place] e 13:30: #[id number] 00 Elimination urinary Eliminatio Resolve 2018-032018-12-20 GENIA incontinenc n d 0-16 12:25:00 [place] e 12:25: #[id number] 00 Nutritional eating NT: Resolve 2018-032018-12-21 [place] Barrier difficultie Barriers d 0-17 14:00:00 [place] s present 14:00: [id number] 00 Elimination urinary Eliminatio Resolve 2018-032018-12-27 GENIA incontinenc n d 0- 13:00:00 [place] e 13:00: #[id number] 00 Elimination urinary Eliminatio Resolve 2018-032019-01-03 GENIA incontinenc n d 13:55:00 JARAD bacon 13:55: #[id number] 00 Allergies, Adverse Reactions, Alerts Allergy Allergy [...] Unknown n 80 mg n 80 mg - MD,Verónica tablet tablet na budesonide- budesonide- No [place] Unknown Unknown formoterol formoterol 10-02 MD,Verónica HFA 160 HFA 160 na mcg-4.5 mcg-4.5 [...] capsule na insulin NPH insulin NPH 2018- Galy[place] Unknown Unknown isophane isophane 10-02 08-21 MDVerónica U-100 human U-100 human na 100 unit/mL 100 unit/mL (3 mL) (3 mL) subcutaneou subcutaneou s pen s pen letrozole letrozole No [place] Unknown Unknown 2.5 mg 2.5 mg 10-02 MD,Verónica tablet tablet na Aspirin Aspirin No [place] Unknown Unknown Childrens Childrens 10-02 Verónica MEDEIROS 81 mg 81 mg na chewable chewable tablet tablet Dulera 200 Dulera 200 No [place] Unknown Unknown mcg-5 mcg-5 10-02 Verónica MEDEIROS mcg/actuati mcg/actuati na on HFA on HFA aerosol aerosol inhaler inhaler Protonix 40 Protonix 40 No [place] Unknown Unknown mg mg 10-02 ,Verónica tablet,alhaji tablet,alhaji na yed release yed release polyethylen polyethylen No [place] Unknown Unknown e glycol e glycol 10-02 Verónica MEDEIROS 3350 17 3350 17 na gram/dose gram/dose oral powder oral powder ProAir HFA ProAir HFA No [place] Unknown Unknown 90 90 10-02 Verónica MEDEIROS mcg/actuati mcg/actuati na on aerosol on aerosol inhaler inhaler HumuLIN R HumuLIN R No [place] Unknown Unknown U-500 U-500 10-02 08- Verónica MEDEIROS (Conc) (Conc) na Insulin Insulin Kwikpen 500 Kwikpen 500 unit/mL (3 unit/mL (3 mL) mL) subcutaneou subcutaneou s s Spiriva Spiriva No [place] Unknown Unknown with with 10-02 Verónica MEDEIROS HandiHaler HandiHaler na 18 mcg and 18 mcg and inhalation inhalation capsules capsules sertraline sertraline No [place] Unknown Unknown 50 mg 50 mg 10-02 ,Verónica tablet tablet na levothyroxi levothyroxi No [place] Unknown Unknown ne 200 mcg ne 200 mcg 10-02 ,Verónica tablet tablet na oxygen oxygen No [place] Unknown Unknown 10-02 ,Verónica na HumuLIN HumuLIN Yes [place] Unknown Unknown 70/30 U-100 70/30 U-100 8- Verónica MEDEIROS Insulin Insulin na KwikPen 100 KwikPen 100 unit/mL unit/mL subcutaneou subcutaneou s s HumuLIN HumuLIN Yes [place] Unknown Unknown 70/30 U-100 70/30 U-100 8-16 Verónica MEDEIROS Insulin Insulin na KwikPen 100 KwikPen 100 unit/mL unit/mL subcutaneou subcutaneou s s Vital Signs Vital Name Observation Time Observation Value Comments SYSTOLIC mm[Hg] 2018-10-08 18:07:09 140 mm[Hg] mm[Hg] Method: Stand DIASTOLIC mm[Hg] 2018-10-08 18:07:09 80 mm[Hg] mm[Hg] Method: Stand Procedures This patient has no known procedures. Results This patient has no known results.
--- OUTSIDE RECORDS SUMMARY | 2019-02-25 20:29 | XMS REPORT ---
:1970 Author Organization [facility] Care Team Providers Name Role Phone Unavailable Unavailable Unavailable Problems Condition Condition Condition Status Onset Resolution Last Treating Comments Name Details Category Date Date Treatment Clinician Date Pain frequent Pain Mgmt Resolve 2018-10-25 Willa pain d 10-02 13:00:00 (Mac) 11:00: Ld [id number] Respiratory lung sounds Respirator Active Willa deficit y 10-02 (Mac) 11:00: Jaffe [id number] Respiratory dyspnea Respirator Active Willa present y 10-02 (Mac) 11:00: Ld [id number] Respiratory oxygen Respirator Active Willa treatments y 10-02 (Mac) in home 11:00: Jaffe [id number] Endo/Pascual glucose Endo/Pascual Active Willa testing 10-02 (Mac) dependence 11:00: Jaffe [id number] Endo/Pascual diabetic Endo/Pascual Active Willa foot care 10-02 (Mac) 11:00: Jaffe [id number] Endo/Pascual anti-coagul Endo/Pascual Active Willa ation 10-02 (Mac) therapy 11:00: Jaffe [id number] Integument skin Integument Resolve 2018-11-15 Willa integrity d 10-02 12:55:00 (Mac) risk 11:00: Jaffe [id number] Nutrition nutritional Nutrition Resolve 2019-01-03 Willa restriction d 10-02 13:55:00 (Mac) s 11:00: Jaffe [id number] Elimination urinary Eliminatio Resolve 2018-10-25 Willa incontinenc n d 10-02 13:00:00 (Mac) e 11:00: Ld [id number] Neuro confusion Neuro/Emot Active Willa present ion 10-02 (Mac) 11:00: Jaffe 00 [id number] Neuro anxiety Neuro/Emot Resolve 2019-01-03 Willa present ion d 10-02 13:55:00 (Mac) 11:00: Jaffe 00 [id number] Neuro depressive Neuro/Emot Active Willa feelings ion 10-02 (Mac) present 11:00: Jaffe 00 [id number] Activity ADL Activity Resolve 2018-11-29 Willa assistance d 10-02 12:15:00 (Mac) required 11:00: Jaffe [id number] Activity self-care Activity Resolve 2018-11-29 Willa deficit d 10-02 12:15:00 (Mac) 11:00: Jaffe 00 [id number] Safety sanitation Safety Active Willa hazards 10-02 (Mac) present 11:00: Jaffe [id number] Safety fall risk Safety Active Willa factor 10-02 (Mac) present 11:00: Jaffe [id number] Safety risk for Safety Active Willa hospitaliza 10-02 (Mac) tion 11:00: Jaffe [id number] Medication oral med Meds Active Willa assistance 10-02 (Mac) required 11:00: Jaffe 00 [id number] Medication injectable Meds Active Willa med 10-02 (Mac) assistance 11:00: Jaffe required 00 [id number] Medication potential Meds Active Willa clinically 10-02 (Mac) significant 11:00: Ld medication 00 [id number] issue Pain knowledge/s Pain Mgmt Resolve 2018-10-25 GENIA kill d 10-05 13:00:00 JARAD deficit: pt 12:30: #[id number] 00 Safety can be left Safety Active GENIA alone for 10-05 JARAD only short 12:30: #[id number] periods 00 Respiratory smoker Respirator Active GENIA y 10-18 [place] 13:15: #[id number] 00 Endo/Pascual insulin Endo/Pascual Active GENIA admn 10-18 [place] dependence 13:15: #[id number] 00 Endo/Pascual knowledge/s Endo/Pascual Active GENIA kill 10-18 [place] deficit 13:15: #[id number] hypo/hyperg 00 lycemia: pt Medication inhalant Meds Active GENIA med 10-18 [place] assistance 13:15: #[id number] required 00 Cardio hypertensio Cardiovasc Active GENIA kristin ular 10-25 [place] 13:00: #[id number] 00 Respiratory Incentive Respirator Resolve 2018-11-15 GENIA Spirometer y d 10-25 12:55:00 [place] /Acapella 13:00: #[id number] Device 00 treatments in home Respiratory asthma Respirator Active GENIA y 10-25 [place] 13:00: #[id number] 00 Endo/Pascual glucose Endo/Pascual Active GENIA tolerance 11-01 [place] problem 13:00: #[id number] 00 Elimination urinary Eliminatio Resolve 2018-11-01 GENIA incontinenc n d 11-01 13:00:00 [place] e 13:00: #[id number] 00 Neuro impaired Neuro/Emot Unknown GENIA decision-ma ion 11-01 [place] 13:00: #[id number] 00 Cardio edema Cardiovasc Active GENIA davidsonar 11-15 [place] 12:55: #[id number] 00 Elimination urinary Eliminatio Resolve 2018-11-15 GENIA incontinenc n d 11-15 12:55:00 [place] e 12:55: #[id number] 00 Neuro impaired Neuro/Emot Active GENIA decision-ma ion 11-15 [place]ard 12:55: #[id number] 00 Respiratory pneumonia Respirator Active GENIA y 11-22 [place] 12:30: #[id number] 00 Nutrition knowledge/s Nutrition Unknown GENIA kill 11-22 [place] deficit: pt 12:30: #[id number] 00 Elimination urinary Eliminatio Resolve 2018-11-22 GENIA incontinenc n d 11-22 12:30:00 [place] e 12:30: #[id number] 00 Respiratory nebulizer Respirator Active GENIA treatment y 11-29 [place] in home 12:15: #[id number] 00 Nutrition knowledge/s Nutrition Resolve 2019-01-03 GENIA kill d 11-29 13:55:00 [place] deficit: pt 12:15: #[id number] 00 Elimination urinary Eliminatio Resolve 2018-11-29 GENIA incontinenc n d 11-29 12:15:00 [place] e 12:15: #[id number] 00 24 Hr Diet nutrition NT: 24Hr Active Purvi intake Diet 11-30 [place] deficit 15:00: [id number] 00 24 Hr Diet knowledge/s NT: 24Hr Active Purvi kill Diet 11-30 [place] deficit - 15:00: [id number] pt 00 Nutritional eating NT: Resolve 2018-11-30 [place] Barrier difficultie Barriers d 11-30 15:00:00 [place] s present 15:00: [id number] 00 Elimination urinary Eliminatio Resolve 2018-032018-12-06 GENIA incontinenc n d 0- 13:20:00 [place] e 13:20: #[id number] 00 24 Hr Diet nutrition NT: 24Hr Unknown 2018-03 GENIA intake Diet 0-02 [place] deficit 13:20: #[id number] 00 24 Hr Diet knowledge/s NT: 24Hr Unknown 2018-03 GENIA kill Diet 0-02 [place] deficit - 13:20: #[id number] pt 00 Elimination urinary Eliminatio Resolve 2018-032018-12-13 GENIA incontinenc n d 0-09 13:30:00 [place] e 13:30: #[id number] 00 Elimination urinary Eliminatio Resolve 2018-032018-12-20 GENIA incontinenc n d 0-16 12:25:00 [place] e 12:25: #[id number] 00 Nutritional eating NT: Resolve 2018-032018-12-21 [place] Barrier difficultie Barriers d 0-17 14:00:00 [place] s present 14:00: [id number] 00 Elimination urinary Eliminatio Resolve 2018-032018-12-27 GENIA incontinenc n d 0- 13:00:00 [place] e 13:00: #[id number] 00 Elimination urinary Eliminatio Resolve 2018-032019-01-03 GENIA incontinenc n d 13:55:00 JARAD bacon 13:55: #[id number] 00 Allergies, Adverse Reactions, Alerts Allergy Allergy [...]
[2019-02-25 20:46] VITALS: BP 134/94
--- NOTE | 2019-02-25 20:55 | UC ---
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 SHE ARRIVES WITH SUPERFICIAL ABRASIONS TO BOTH KNEES. UNKNOWN DATE OF LAST TETANUS. NO HEAD INJURY OR LOC. - History of Current Complaint Time Seen by Provider: 02/25/19 20:28 Stated Complaint: KNEE LAC Hx Obtained From: Patient Hx Last Menstrual Period: 15 years agop Onset/Duration: Sudden Onset, Lasting Hours, Still Present Timing: Constant Onset Severity: Moderate Current Severity: Moderate Pain Intensity: 7 Pain Scale Used: 0-10 Numeric Character: Pain Aggravating Factor(s): Touch Alleviating Factor(s): Nothing - Allergy/Home Medications Allergies/Adverse Reactions: Allergies Allergy/AdvReac Type Severity Reaction Status Date / Time morphine Allergy Itching Verified 02/25/19 20:43 varenicline [From Chantix] Allergy See Comment Verified 02/25/19 20:43 PMH/Surg Hx/FS Hx/Imm Hx Endocrine History: Diabetes, Hypothyroidism Cardiovascular History: Hypertension Respiratory History: COPD, Asthma Cancer History: Breast Cancer Other History Of: Negative For: Anticoagulant Therapy - Surgical History Surgical History: Yes Surgery Procedure, Year, and Place: skin graft, c-sec, left mastectomy, - Family History Known Family History: Positive: Other Family History: Mother - [place]. - Social History Alcohol Use: None Substance Use Type: None Smoking Status (MU): Heavy Every Day Tobacco Smoker Type: Cigarettes Length of Time of Smoking/Using Tobacco: 13 years Have You Smoked in the Last Year: Yes Household Exposure Type: Cigarettes - Immunization History Most Recent Influenza Vaccination: 2018 Most Recent Pneumonia Vaccination: 2018 Review of Systems All Other Systems Reviewed And Are Negative: Yes Constitutional: Positive: Negative Skin: Positive: Other - ABRASIONS BILATERAL KNEES Respiratory: Positive: Negative Cardiovascular: Positive: Negative Gastrointestinal: Positive: Negative Musculoskeletal: Positive: Arthralgia Physical Exam Triage Information Reviewed: Yes Appearance: Well-Appearing, No Pain Distress, Well-Nourished, Obese Vital Signs: Initial Vital Signs Temp 97.9 F 02/25/19 20:44 Pulse 109 02/25/19 20:44 Resp 18 02/25/19 20:44 BP 134/94 02/25/19 20:44 Pulse Ox 95 02/25/19 20:44 Vital Signs Reviewed: Yes Eyes: Positive: Conjunctiva Clear ENT: Positive: Hearing grossly normal Neck: Positive: Supple Respiratory: Positive: No respiratory distress, No accessory muscle use Cardiovascular: Positive: Pulses Normal Abdomen Description: Positive: Soft Musculoskeletal: Positive: No Edema, ROM Limited @ - BILATERAL KNEES, Other: - DIFFUSELY TENDER OVER BILATERAL KNEES. NO FOCAL BONY TENDERNESS Neurological: Positive: Alert Psychological: Positive: Normal Response To Family, Age Appropriate Behavior Skin: Positive: Other - 5CM X 5CM SPFL ABRASION LEFT KNEE. 4CM X 3CM SPFL ABRASION RIGHT KNEE Course/Dx - Course Course Of Treatment: PATIENT SUSTAINED BILATERAL KNEE ABRASIONS AFTER FALLING DOWN CONCRETE STEPS THIS EVENING. GIVEN HER UNCONTROLLED DIABETES WILL COVER WITH ANTIBIOTICS. KEFLEX TWICE DAILY FOR 5 DAYS. BASED ON EXAM LOW SUSPICION FOR ANY ACUTE BONY INJURY. NO IMAGING TODAY. TDAP BOOSTED. FOLLOW-UP WITH PCP IF SHE IS NOT IMPROVING EXPECTED OVER THE NEXT 1-2 WEEKS. - Diagnoses Provider Diagnosis: Abrasion of knee, bilateral, Need for Tdap vaccination Discharge ED - Sign-Out/Discharge Documenting (check all that apply): Patient Departure All imaging exams completed and their final reports reviewed: No Studies - Discharge Plan Condition: Stable Disposition: HOME Prescriptions: Cephalexin CAP* [Keflex 500 CAP*] 500 mg PO BID #10 cap Patient Education Materials: Abrasion (ED) Referrals: Tiffany Richards MD [Primary Care Provider] - If Needed Additional Instructions: KEEP YOUR ABRASIONS COVERED WITH ANTIBIOTIC OINTMENT AND A NONSTICK BANDAGE. CHANGE BANDAGE DAILY AND NEEDED IF IT BECOMES SOILED OR WET. SEEK FOLLOW-UP IF YOU DEVELOP SPREADING REDNESS OF THE SKIN, PURULENT DRAINAGE, FEVER, INCREASED PAIN OR ANY OTHER CONCERNING SYMPTOMS. TETANUS IMMUNIZATION GIVEN (TDAP): You have been given an immunization against tetanus. Please record this in your records. In general, a booster is needed only once every 10 years. The tetanus shot protects against tetanus or "lockjaw," which is a complication of certain wound infections (the tetanus shot cannot protect against the actual infection). The immunization site may become warm and red due to local reaction. If this occurs, apply warm compresses and take aspirin or ibuprofen to reduce inflammation and discomfort. Return for evaluation if the reaction becomes severe. - Billing Disposition and Condition Condition: STABLE Disposition: Home
== END 2019-02-25 21:20 | disposition home or self-care (01) ==
LOC: UCEAST 20:23
DX: S80.212A Abrasion, left knee, initial encounter (principal); S80.211A Abrasion, right knee, initial encounter; Z23 Encounter for immunization; E11.9 Type 2 diabetes mellitus without complications; I10 Essential (primary) hypertension; J44.9 Chronic obstructive pulmonary disease, unspecified; F17.210 Nicotine dependence, cigarettes, uncomplicated; Z85.3 Personal history of malignant neoplasm of breast; Z88.5 Allergy status to narcotic agent; Z88.8 Allergy status to other drugs, medicaments and biological substances
CPT/HCPCS: 90715; 96372; 99212; G0463